=== PATIENT | female | born 1995 | race Caucasian/White ===

== ENCOUNTER 2023-03-18 08:15 | Emergency (ER) | payer MEDICAID, SELFPAY ==
--- NOTE | ~2023-03-18 | CT_ITS ---
EXAMINATION: CT ABDOMEN AND PELVIS WITHOUT CONTRAST CLINICAL INFORMATION: Right upper quadrant pain, nausea and vomiting. COMPARISON: None available. TECHNIQUE: Multidetector volumetric imaging was performed from the superior aspect of the liver through the pubic symphysis. Sagittal and coronal reformatted images were obtained on the technologist's workstation. This CT examination was performed using dose optimization techniques as appropriate, variously including the following: *Automated exposure control *Adjustment of mA and/or kV according to patient size (this includes techniques or standardized protocols for targeted exams where dose is matched to indication/reason for exam; i.e. extremities or head) *Use of iterative reconstruction technique Fleischner Society guidelines would not be applied to a patient of age < 35 years. DLP: 638 mGy-cm FINDINGS: LUNG BASES: No pulmonary consolidation or pleural effusion. Small 0.3 cm pleural-based nodule or lymph node of the lateral left lower lobe. No chest CT follow-up recommended. LIVER: The liver has normal size, shape, and attenuation. No evidence of liver mass. GALLBLADDER AND BILIARY TREE: Gallbladder is surgically absent. No dilated bile ducts. No CT imaging evidence of stones within the nondilated common duct. PANCREAS: Normal. No edema, pancreatic ductal dilatation or mass. SPLEEN: Normal. ADRENAL GLANDS: Normal. KIDNEYS AND URETERS: Kidneys are normal in size. No renal stones, hydronephrosis or perinephric edema. 1 cm cyst of the left kidney has a simple appearance on these noncontrast images. No renal imaging follow-up is recommended for a simple cyst. BLADDER: Normal. No calculi or wall thickening. BOWEL AND PERITONEUM: Stomach is unremarkable. No dilated loops of bowel. The appendix is normal. No focal bowel wall thickening or mesenteric fat stranding. No free fluid or pneumoperitoneum. ABDOMINAL WALL: Unremarkable. VASCULATURE: Unremarkable. LYMPH NODES: No pathologic sized lymph nodes in the abdomen or pelvis. No inguinal lymphadenopathy. PELVIC VISCERA: Uterus and adnexa are unremarkable. No pelvic free fluid. Multiple phleboliths are seen within the lower pelvis. MUSCULOSKELETAL: Unremarkable. CT/CT abdomen pelvis wo IV con IMPRESSION: * No acute imaging abnormalities in the abdomen or pelvis. * No evidence of renal stones or hydronephrosis. * Prior cholecystectomy. No dilated bile ducts. No evidence of choledocholithiasis.
[2023-03-18 08:32] VITALS: BP 114/67; PULSE 81; RESP 20; TEMP 36.6; O2SAT 99; BMI 32.9
[2023-03-18 08:48] LABS: MANUAL DIFF FLAG NO
[2023-03-18 08:50] LABS: Appearance Urine Clear; Basophils Percent Auto 0.3 % (0-2); Color Urine Yellow; Eosinophils Absolute Auto 0.2 X10*3/uL (0.0-0.4); Eosinophils Percent Auto 2.1 % (0-4); Glucose Urine UA Negative (Negative); Hematocrit 37.4 % (37.0-47.0); Hemoglobin 12.9 g/dl (12.0-16.0); Imm Gran Abs Auto 0.02 X10*3/uL (0.00-0.03); Imm Gran Pct Auto 0.2 % (0.0-0.4); Leukocyte Esterase Urine Negative (Negative); Lymphocytes Absolute Auto 2.4 X10*3/uL (1.2-4.9); Lymphocytes Percent Auto 26.2 % (20-40); Mean Corpuscular HGB Conc 34.5 g/dl (31.0-35.0); Mean Corpuscular Hemoglobin 29.3 pg (27.0-33.0); Mean Corpuscular Volume 84.8 fL (80.0-98.0); Mean Platelet Volume 9.7 fL (9.4-12.3); Monocytes Absolute Auto 0.5 X10*3/uL (0.1-1.2); Monocytes Percent Auto 5.5 % (2-11); Neutrophils Absolute Auto 6.1 x10*3/uL (2.0-8.3); Neutrophils Percent Auto 65.7 % (45-73); Nitrite Urine Negative (Negative); Platelet Count 306 X10*3/uL (160-400); Red Blood Count 4.41 X10*6/uL (4.20-5.50); Red Cell Distribution Width 12.3 % (11.0-16.0); Specific Gravity - Urine >= 1.030 (1.005-1.025); Urine Blood Negative (Negative); Urine Ketones Trace mg/dL (Negative); Urine Protein Negative (Neg-Trace); White Blood Count 9.3 X10*3/uL (4.8-10.8)
[2023-03-18 08:53] LABS: UPreg QC Valid YES; Urine Pregnancy NEGATIVE (NEGATIVE)
[2023-03-18 09:05] LABS: Anion Gap 11 (12-20); Blood Urea Nitrogen 11 mg/dL (9-16); Carbon Dioxide 25 mmol/L (22-29); Chloride 107 mmol/L (96-108); Creatinine Clr Calc Pharmacy 106.3; Estimated Glomerular Filt Rate > 60; Glucose Random 91 mg/dL (60-115); Potassium 3.8 mmol/L (3.3-5.1); Sodium 139 mmol/L (135-145)
--- NOTE | 2023-03-18 12:30 | ED.ABDPAIN ---
HPI - Abdominal Pain General Chief Complaint: Abdominal Pain Stated Complaint: Upper Abdominal Pain Time Seen by Provider: 03/18/23 12:30 Source: patient and family (mother) Mode of arrival: ambulatory Limitations: no limitations History of Present Illness HPI narrative: 28 yo female with PMHx significant for hyperthyroid presents to the ED today with a complaint of RUQ and epigastric abdominal pain + nonbloody vomiting x3 days. Pain has been constant since onset with radiation to the right flank. Reports history of similar symptoms, diagnosed with gastroenteritis. Has not seen a GI doctor. No hx of renal stones. Reports hx of cholecystectomy in 2019, no other abdominal surgeries. Denies etoh consumption or ilicit drug use including marijuana. Denies fall/ injury. Denies fever, chills, headache, CP, SOB, diarrhea, constipation, urinary frequency/ urgency, dysuria, hematuria, vaginal discharge, hematochezia, or melena. Related Data Previous Rx's Medication Instructions Recorded ketorolac 10 mg tablet 10 mg PO Q8H 5 days #15 tabs 03/18/23 ondansetron 4 mg disintegrating 4 mg PO DAILY PRN nausea and 03/18/23 tablet vomiting 5 days #10 tabs Allergies Allergy/AdvReac Type Severity Reaction Status Date / Time No Known Allergies Allergy Verified 03/18/23 08:31 Review of Systems Review of Systems Constitutional: No fever, No chills, No fatigue ENT/Mouth: No ear pain, No hearing loss,? No nasal congestion Eyes: No eye pain, No swelling, No redness, No vision changes, No foreign body, No discharge Cardio: No chest pain, No palpitations, No dyspnea on exertion, No orthopnea, No edema Respiratory: No SOB, No cough, No sputum, No wheezing, No dyspnea, No hemoptysis, No smoke exposure GI: + nausea, + vomiting, No hematemesis, + abdominal pain, No diarrhea, No constipation, No hematochezia, No melena : No irregular bleeding, No dysuria, No frequency, No urgency, No hesitancy, No hematuria, No flank pain MSK: No back pain, No neck pain, No joint pain, No myalgias Skin: No skin lesions, No rashes Neuro: No weakness, No numbness, No paresthesias, No LOC, No dizziness, No headache Yes all other systems are reviewed and are negative PMFSH Past Medical History Attestation statement: The following information was validated with the patient. Source: old records reviewed and nursing notes reviewed Social History Social History Advance Directives: No Advance Directives Information Provided: Yes Physical Exam ED Vital Signs: Vital Signs - 24 hr 03/18/23 08:32 03/18/23 14:52 03/18/23 14:56 Temperature 98 F 98.0 F Pulse Rate 81 67 74 Respiratory Rate 20 13 18 Blood Pressure 114/67 103/62 99/57 L Pulse Oximetry 99 97 96 Oxygen Delivery Method Room Air Room Air Room Air BMI result Body Mass Index 32.9 Vital signs stable. General: Nontoxic appearing. NAD Skin: Warm and dry. No rashes or lesions. Head: Normocephalic, atraumatic. EENT: Hearing intact. Conjunctiva clear. Sclera is anicteric. PERRLA. EOM intact. Moist mucous membranes. Good dentition. Controlling secretions. Neck: Supple without LAD. Normal ROM. Trachea midline.? Cardiac: Chest wall symmetric. Regular rate and rhythm. S1 and S1 appreciated. No MRG. No JVD. Lungs: CTA bilaterally. No rales, rhonchi, or wheezes. Normal respiratory effort without accessory muscle use. Abdomen: Healed scar noted to RUQ consistent with previous laparoscopic cholecystectomy. Soft, nondistended, RUQ and epigastric region TTP without rebound tenderness or guarding. Normoactive BS x4. No masses, hepatomegaly, or splenomegaly.? Ext: Upper and lower extremities atraumatic. Full ROM intact. Strength 5/5 throughout. Capillary refill <2 seconds in all extremities. Pulses 2+ equal and bilateral. No edema, cyanosis, or clubbing. Neuro: Alert and oriented x3. Normal speech. CN 2-12 grossly intact. Sensation intact to light touch.? NV intact distally. Psych: Appropriate mood and affect. Responds appropriately to questions.? Course Course Course Narrative: 1329-- CBC without leukocytosis or anemia. BMP without acute electrolyte abnormalities requiring intervention. Liver enzymes WNL. Lipase WNL. UA without infection or blood. Urine preg negative. Awaiting CT abd/pelvis. CT abd/pelvis > unremarkable On re-evaluation, patient's nausea and abdominal pain have improved. Lying comfortably in bed, sleeping. Discussed lab and imaging results with patient. Used shared decision making to discuss patient's disposition. Given patient is stable, has had improvement of pain with medications, and has unremarkable work up, will plan GI follow up outpatient. Will send patient home with anti-nausea medication and pain medication received in ED. Discussed worrisome signs and symptoms and when to return to the ED. Patient agreeable with plan. All questions answered. Stable for discharge. Medical Decision Making Medical Decision Making [facility] Narrative: 1250-- 28 yo female with RUQ/ epigastric pain & N/V x3 days PE- RRR. Lungs CTA. Abdomen soft, nondistended, TTP of the RUQ and epigastric region. +BS x4. No rebound or guarding. No CVAT. Concern for pancreatitis vs appendicitis vs gastroenteritis vs cyclic vomiting vs PUD vs GERD. Low suspicion for UTI vs pyelonephritis vs nephrolithiasis. Unlikely SBO, acute abdomen, ischemic bowel, IUP, ectopic, ovarian torsion or cyst. Presentation not consistent with ASC or dissection. Differential Diagnosis Differential Diagnoses: The differential diagnosis associated with the presentation includes Concern for pancreatitis vs appendicitis vs gastroenteritis vs cyclic vomiting vs PUD vs GERD. Low suspicion for UTI vs pyelonephritis vs nephrolithiasis. Unlikely SBO, acute abdomen, ischemic bowel, IUP, ectopic, ovarian torsion or cyst. Presentation not consistent with ASC or dissection. Admission/Observation Consideration of admission/observation: Escalation of care including admission/observation considered Unlikely. Lab Data [facility] Lab Attestation statement: I reviewed the patient's lab results. Please refer to course narrative above. 03/18/23 08:42 03/18/23 08:42 Labs: Lab Results 03/18/23 03/18/23 Range/Units 08:42 12:56 WBC 9.3 (4.8-10.8) X10*3/uL RBC 4.41 (4.20-5.50) X10*6/uL Hgb 12.9 (12.0-16.0) g/dl Hct 37.4 (37.0-47.0) % MCV 84.8 (80.0-98.0) fL MCH 29.3 (27.0-33.0) pg MCHC 34.5 (31.0-35.0) g/dl RDW 12.3 (11.0-16.0) % Plt Count 306 (160-400) X10*3/uL MPV 9.7 (9.4-12.3) fL Immature Gran % (Auto) 0.2 (0.0-0.4) % Neut % (Auto) 65.7 (45-73) % Lymph % (Auto) 26.2 (20-40) % [place] % (Auto) 5.5 (2-11) % Eos % (Auto) 2.1 (0-4) % Baso % (Auto) 0.3 (0-2) % Lymph # (Auto) 2.4 (1.2-4.9) X10*3/uL [place] # (Auto) 0.5 (0.1-1.2) X10*3/uL Eos # (Auto) 0.2 (0.0-0.4) X10*3/uL Baso # (Auto) 0.0 (0.0-0.2) X10*3/uL Abs Immat Gran (auto) 0.02 (0.00-0.03) X10*3/uL Absolute Neuts (auto) 6.1 (2.0-8.3) x10*3/uL Absolute Nucleated RBC 0.000 (0.0-0.012) X10*3/uL Nucleated RBC % (auto) 0.0 (0.0-0.2) /100WBC Sodium 139 (135-145) mmol/L Potassium 3.8 (3.3-5.1) mmol/L Chloride 107 (96-108) mmol/L Carbon Dioxide 25 (22-29) mmol/L Anion Gap 11 L (12-20) BUN 11 (9-16) mg/dL Creatinine 0.78 (0.5-1.4) mg/dL Estim Creat Clear Calc 106.3 Estimated GFR > 60 Random Glucose 91 (60-115) mg/dL Calcium 9.0 (8.4-10.2) mg/dL Total Bilirubin 0.5 (0.0-1.0) mg/dL Direct Bilirubin 0.2 (0.0-0.5) mg/dL AST 17 (5-31) U/L ALT 13 (0-31) U/L Alkaline Phosphatase 81 (39-117) U/L Total Protein 7.3 (6.5-8.0) g/dL Albumin 4.2 (3.5-5.0) g/dL Lipase 9 (8-78) U/L Urine Color Yellow Urine Appearance Clear Urine pH 6.0 (5.0-9.0) Ur Specific [place] >= 1.030 H (1.005-1.025) Urine Protein Negative (Neg-Trace) mg/dL Urine Glucose (UA) Negative (Negative) mg/dL Urine Ketones Trace (Negative) mg/dL Urine Blood Negative (Negative) Urine Nitrite Negative (Negative) Ur Leukocyte Esterase Negative (Negative) Urine Test NEGATIVE (NEGATIVE) Independent Interpretation I performed an independent interpretation of an: CT Scan Interpretation: CT abd/pelvis without acute intraabdominal pathology, agree with radiologist's interpretation. Radiology Impression Discussion of test interpretation with radiology: I have reviewed the radiologist's reading. Radiologist Impression: CT abdomen pelvis wo IV con IMPRESSION: * No acute imaging abnormalities in the abdomen or pelvis. * No evidence of renal stones or hydronephrosis. * Prior cholecystectomy. No dilated bile ducts. No evidence of choledocholithiasis. Independent Historian Clinical information obtained from an independent historian. History obtained from or confirmed by: Parent Prescription Management I considered prescription management with: Pain Medication and Other (antiemetic) Chronic Conditions Patient?s care impacted by: Other (gastroenteritis) Core Measures AMI core measures followed: Yes Measure exclusions: not indicated Medications Administered Discontinued Medications Generic Name Dose Route Start Last Admin Trade Name Freq PRN Reason Stop Dose Admin Ketorolac Tromethamine 15 mg 03/18/23 12:46 03/18/23 13:53 Ketorolac Tromethamine 15 Mg/Ml Vial IM 03/18/23 12:47 15 mg ONCE ONE Administration Discharge Plan Discharge Clinical Impression: Gastroenteritis, Abdominal pain Patient Disposition: Home, Self-Care Instructions: Gastroenteritis (ED) Additional Instructions: Your lab workup today was reassuring.? Your urine test was negative for infection and .? The imaging of your abdomen was unremarkable. Your symptoms are most consistent with a viral stomach bug, also known as gastroenteritis.? The treatment for this is supportive care. Symptoms usually resolve on their own in 48-72 hours.? The recommendation is rest and lots of oral hydration.? Stick to a bland diet like soup and toast while you are not feeling well.? Zofran is an anti-nausea medication. This has been sent to your pharmacy for you to take as needed for nausea.? You can also try over the counter Pepto Bismol or Imodium as needed for upset stomach and diarrhea.? Follow up with your primary care provider as needed. If you develop new or worsening symptoms call 911 or come back to the ER for further evaluation. Frazier an?lisis de laboratorio de hoy fue tranquilizador. Frazier prueba de orina fue negativa para infecci?n y embarazo. La imagen de frazier abdomen no fue nada especial. Marta s?ntomas son m?s consistentes con un virus estomacal viral, tambi?n conocido edgar gastroenteritis. El tratamiento para esto es la atenci?n de apoyo. Los s?ntomas suelen desaparecer por s? solos en 48 a 72 horas. La recomendaci?n es reposo y melba hidrataci?n bucal. Siga leela dieta blanda edgar sopa y tostadas mientras no se sienta rocío. Zofran es un medicamento contra las n?useas. [place] se envi? a frazier farmacia para que lo tome seg?n sea necesario para las n?useas. Tambi?n puede probar Pepto Bismol o Imodium sin receta seg?n sea necesario para el malestar estomacal y la diarrea. Katina un seguimiento con frazier proveedor de atenci?n primaria seg?n sea necesario. Si desarrolla s?ntomas nuevos o que empeoran, llame al 911 o regrese a la blas de emergencias para leela evaluaci?n adicional. Prescriptions: New ketorolac 10 mg tablet 10 mg PO Q8H 5 Days Qty: 15 0RF Rx Instructions: Tolerated dose in ED. ondansetron 4 mg tablet,disintegrating 4 mg PO DAILY PRN (Reason: nausea and vomiting) 5 Days Qty: 10 0RF [place]: [facility] [place] [facility] [place] Group] [facility] [Provider Group] Stand Alone Forms: Work/School Release Interventions: ED Discharge Assessment Last Done: 03/18/23 15:06 Discharge Date/Time: 03/18/23 15:08 Print Language: Nepalese
[2023-03-18 13:22] LABS: Alanine Aminotransferase 13 U/L (0-31); Albumin Level 4.2 g/dL (3.5-5.0); Alkaline Phosphatase 81 U/L (39-117); Aspartate Amino Transferase 17 U/L (5-31); Bilirubin Direct 0.2 mg/dL (0.0-0.5); Bilirubin Total 0.5 mg/dL (0.0-1.0); Lipase 9 U/L (8-78); Total Protein 7.3 g/dL (6.5-8.0)
[2023-03-18] MEDS: Ketorolac Tromethamine 15 MG/ML VIAL IM (13:53)
[2023-03-18 14:52] VITALS: BP 103/62; PULSE 67; RESP 13; O2SAT 97
[2023-03-18 14:56] VITALS: BP 99/57; PULSE 74; RESP 18; TEMP 36.7; O2SAT 96
== END 2023-03-18 15:08 | disposition home or self-care (01) ==
PROVIDERS: Physician Assistant Medical; Emergency Provider Emergency Medicine
DX: K52.9 Noninfective gastroenteritis and colitis, unspecified (principal); R10.10 Upper abdominal pain, unspecified; Z90.49 Acquired absence of other specified parts of digestive tract
CPT/HCPCS: 36415; 74176; 80048; 80076; 81003; 81025; 83690; 85025; 96372; 99283; 99284; J1885

== ENCOUNTER 2023-04-26 18:13 | Inpatient (IN) | payer MEDICAID, SELFPAY ==
--- NOTE | ~2023-04-26 | MR_ITS ---
EXAMINATION: MR ABDOMEN WITHOUT CONTRAST CLINICAL INFORMATION: Right upper quadrant pain and elevated LFTs. COMPARISON: Prior CTs of the abdomen from 04/27/2023, 04/26/2023 and 03/18/2023. TECHNIQUE: MR abdomen is performed without gadolinium contrast. FINDINGS: LUNG BASES: The visualized lung bases are unremarkable. LIVER, GALLBLADDER, AND BILIARY TREE: The liver is normal in size, smooth in contour, and normal in signal. No focal hepatic lesion. Moderate intrahepatic biliary ductal dilatation and dilatation of the common bile duct to 1.3 cm upstream from a 6 mm stone in the mid common bile duct, at the level of the superior aspect of the pancreatic head. Gallbladder surgically absent. PANCREAS: Unremarkable. SPLEEN: Unremarkable. ADRENAL GLANDS: Unremarkable. KIDNEYS AND URETERS: The kidneys are normal in size and shape. No hydronephrosis. There is a 1.1 cm simple cyst in the posterior interpolar cortex of the left kidney. No perinephric stranding. GASTROINTESTINAL TRACT: No bowel obstruction. No ascites or fluid collection. ABDOMINAL WALL: No significant hernia is appreciated. LYMPH NODES: No lymphadenopathy. VASCULAR: Unremarkable. OSSEOUS STRUCTURES: Marrow signal normal. MR/MR MRCP IMPRESSION: * Choledocholithiasis with a 6 mm stone in the mid common bile duct, at the level of the superior aspect of the pancreatic head. There is dilatation of the common bile duct 1.3 cm with moderate to severe intrahepatic biliary duct dilatation. Recommend GI consult for potential ERCP. * Status post cholecystectomy.
--- NOTE | ~2023-04-26 | US_ITS ---
EXAMINATION: US ABDOMEN LIMITED CLINICAL INFORMATION: Right upper quadrant pain and jaundice. COMPARISON: CT abdomen and pelvis dated 03/18/2023. TECHNIQUE: Real-time imaging of the right upper quadrant abdominal viscera. FINDINGS: PANCREAS: Largely obscured by overlapping bowel gas. LIVER: The liver is normal in size. The liver contour is normal. Parenchymal echogenicity is normal. No focal hepatic lesion. There is mild intrahepatic biliary duct dilatation seen. GALLBLADDER: Surgically absent. COMMON BILE DUCT: Normal in caliber post-cholecystectomy, measuring 1.1 cm in diameter. RIGHT KIDNEY: Normal. No hydronephrosis. No renal calculi or focal parenchymal lesions. The kidney measures 10.0 cm in maximum dimension. FREE FLUID: None. US/US abdomen limited IMPRESSION: 1. There is mild intrahepatic biliary ductal dilatation. No definite extrahepatic biliary ductal dilatation is seen. The gallbladder is surgically absent. If of continued clinical concern, this can be further evaluated with abdominal MRI/MRCP or a nuclear HIDA scan. 2. Technically limited ultrasound examination of the pancreas.
--- NOTE | ~2023-04-26 | XR_ITS ---
EXAMINATION: XR ABDOMEN KUB CLINICAL INDICATION: Evaluate pancreatic stent COMPARISON: Image obtained at conclusion of endoscopic procedure 04/28/23 TECHNIQUE: AP view of the abdomen. FINDINGS: There is a metallic density projecting in the right upper quadrant. There are surgical clips. There is a partially opaque stent in the right midabdomen extending from the upper endplate of L1 to the mid L2 level. This appears similar in position to the previous study. Gaseous distention with gas in the colon to the level of the rectum. There are phleboliths. XR/XR KUB IMPRESSION: There is a pancreatic stent in the right midabdomen which appears similar in location to the previous study.
--- NOTE | ~2023-04-26 | CT_ITS ---
EXAMINATION: CT ABDOMEN AND PELVIS WITHOUT CONTRAST CLINICAL INFORMATION: Right upper quadrant pain with elevated bilirubin COMPARISON: Ultrasound abdomen earlier today and CT abdomen pelvis 03/28/2023 TECHNIQUE: Multidetector volumetric imaging was performed from the superior aspect of the liver through the pubic symphysis. Sagittal and coronal reformatted images were obtained on the technologist's workstation. This CT examination was performed using dose optimization techniques as appropriate, variously including the following: *Automated exposure control *Adjustment of mA and/or kV according to patient size (this includes techniques or standardized protocols for targeted exams where dose is matched to indication/reason for exam; i.e. extremities or head) *Use of iterative reconstruction technique DLP: 667 mGy-cm FINDINGS: LUNG BASES: The visualized lung bases are unremarkable. LIVER, GALLBLADDER, AND BILIARY TREE: Examination of the liver is limited by lack of IV contrast. The liver is normal in size, shape, and attenuation. No focal hepatic lesion or biliary ductal dilatation is present. Status post cholecystectomy with clips in the gallbladder fossa. PANCREAS: Unremarkable. SPLEEN: Unremarkable. ADRENAL GLANDS: Unremarkable. KIDNEYS AND URETERS: The kidneys are normal in size, shape, and attenuation. No hydronephrosis, hydroureter, or calculi seen. No perinephric stranding. BLADDER: Unremarkable. GASTROINTESTINAL TRACT: The small and large bowel are unremarkable. The appendix is unremarkable. ABDOMINAL WALL: No significant hernia is appreciated. LYMPH NODES: Normal. VASCULAR: Unremarkable. PELVIC VISCERA: Unremarkable. OSSEOUS STRUCTURES: Unremarkable. CT/CT abdomen pelvis wo IV con IMPRESSION: No significant abnormality. Status post cholecystectomy. Fleischner guidelines were followed.
--- NOTE | ~2023-04-26 | CT_ITS ---
EXAMINATION: CT ABDOMEN AND PELVIS WITH CONTRAST CLINICAL INFORMATION: Elevated bilirubin, right upper quadrant pain COMPARISON: 04/26/2023 TECHNIQUE: Multidetector volumetric images were obtained from the superior aspect of the liver through the pubic symphysis following administration 85 mL of Omnipaque 350 intravenous contrast. Sagittal and coronal reformatted images were obtained on the technologist's workstation. Oral contrast: No This CT examination was performed using dose optimization techniques as appropriate, variously including the following: *Automated exposure control *Adjustment of mA and/or kV according to patient size (this includes techniques or standardized protocols for targeted exams where dose is matched to indication/reason for exam; i.e. extremities or head) *Use of iterative reconstruction technique DLP: 680 mGy-cm FINDINGS: LUNG BASES: The visualized lung bases are unremarkable. LIVER, GALLBLADDER, AND BILIARY TREE: The liver is normal in size, shape, and attenuation. No focal hepatic lesion identified. Status post cholecystectomy. There is mild to moderate intrahepatic biliary ductal dilatation. PANCREAS: Unremarkable. SPLEEN: Unremarkable. ADRENAL GLANDS: Unremarkable. KIDNEYS AND URETERS: Bilateral nephrograms are symmetric. No hydronephrosis or obstructing calculus identified. Small left renal cyst; no follow-up recommended. BLADDER: Unremarkable. GASTROINTESTINAL TRACT: Assessment for wall thickening in some segments of the colon is limited due to luminal collapse, though no significant pericolonic stranding is seen to strongly suggest a colitis. No evidence of bowel obstruction. The appendix is unremarkable. No free fluid or free air is seen. ABDOMINAL WALL: No significant hernia is appreciated. LYMPH NODES: Normal. VASCULAR: Unremarkable. PELVIC VISCERA: Unremarkable. OSSEOUS STRUCTURES: Unremarkable. CT/CT abdomen pelvis w IV con IMPRESSION: Status post cholecystectomy. Mild to moderate intrahepatic biliary ductal dilatation, which could be secondary to postcholecystectomy state though obstruction in the common bile duct could also result in this appearance. This could be further assessed with MRI/MRCP.
--- NOTE | ~2023-04-26 | FL_ITS ---
EXAMINATION: XR FLUOROSCOPY WITH IMAGES CLINICAL INFORMATION: ERCP COMPARISON: Previous MR MRCP, CT of the abdomen and was found of the abdomen from earlier TECHNIQUE: Fluoroscopy Supervised By: Dr. Aleksander Betts. Fluoroscopy Time: 220.9 seconds. Cumulative Dose: 61.93 mGy. DAP: Not available on this machine. Images: 12. FINDINGS: Initial images demonstrate wires in the common bile duct and main pancreatic duct There is intra and extrahepatic biliary duct dilatation. There is a filling defect in the common bile duct suggestive of a stone. There is no contrast opacification of the common bile duct distal to the stone. Later images demonstrate stent main pancreatic duct. The gallbladder has been removed. FL/FL guidance in OR IMPRESSION: Fluoroscopy guidance for ERCP.
[2023-04-26 18:27] VITALS: BP 127/70; PULSE 96; RESP 20; TEMP 36.9; O2SAT 100; BMI 32.9
--- NOTE | 2023-04-26 18:32 | ED.ABDPAIN ---
HPI - Abdominal Pain General Chief Complaint: Abdominal Pain Stated Complaint: Abdominal pain Time Seen by Provider: 04/26/23 22:15 Source: patient and RN notes reviewed Mode of arrival: ambulatory Limitations: no limitations and language barrier History of Present Illness HPI narrative: This is a 28-year-old italian speaking female, with a past medical history of thyroid disease, presenting to the emergency department for evaluation of right upper abdominal pain x3 days. Patient states that over the last 3 days she has had constant right upper abdominal pain that radiates into her back. She admits to having nausea and vomiting. She is unable to eat or drink secondary to the pain and persistent nausea and vomiting. She had a cholecystectomy in 2020, no other surgical history. Denies fevers or chills. Denies taking any medications at home to treat her pain. Denies history of similar symptoms. MD elicited complaint: abdominal pain Pertinent past history: none Onset (ago): day(s) Pain Consistency: constant Location: epigastric and RUQ Pain scale (0-10): 10 Quality: stabbing and aching Radiation: RUQ, epigastric, R flank and back Migration to: no migration Exacerbating factors: nothing Relieving factors: nothing Associated symptoms: nausea and vomiting Related Data Previous Rx's Medication Instructions Recorded ketorolac 10 mg tablet 10 mg PO Q8H 5 days #15 tabs 03/18/23 ondansetron 4 mg disintegrating 4 mg PO DAILY PRN nausea and 03/18/23 tablet vomiting 5 days #10 tabs Allergies Allergy/AdvReac Type Severity Reaction Status Date / Time No Known Allergies Allergy Verified 03/18/23 08:31 Review of Systems Review of Systems Yes all other systems are reviewed and are negative Constitutional: Reports as per [facility] Social History Social History Smoked in Last 30 Days: No Use of substances other than those prescribed or required for medical reasons: No Advance Directives: No Advance Directives Information Provided: No Physical Exam ED Vital Signs: Vital Signs - 24 hr 04/26/23 18:27 04/26/23 21:16 04/27/23 00:54 Temperature 98.5 F 98.2 F Pulse Rate 96 95 72 Respiratory Rate 20 20 16 Blood Pressure 127/70 119/64 122/76 Pulse Oximetry 100 98 99 Oxygen Delivery Method Room Air Room Air Room Air BMI result Body Mass Index 32.9 Const General: cooperative and other (Kneeling at bedside, appears to be uncomfortable secondary to pain.) Orientation/consciousness: patient oriented x3 Limitations: no limitations HENMT Head: Yes normal to inspection, Yes normocephalic and Yes atraumatic Ears: hearing grossly normal bilaterally General nose exam: Normal external nose present Face and sinus: Yes normal facial exam Mouth: Normal oral and palatal mucosa present, oropharynx normal and moist mucous membranes Throat: Yes posterior oropharynx normal Eyes Other: Scleral icterus noted General: appearance normal, both eyes and all related structures Eyelids: Yes eyelids normal Conjunctivae: conjunctivae normal Sclerae: sclerae normal Pupils: Equal, round and reactive pupils present EOM: EOMs intact bilaterally Neck Neck: Yes normal visual inspection, Yes full ROM and Yes no lymphadenopathy Lymphatic: no lymphadenopathy noted Chest Chest palpation & inspection: normal inspection of the chest Resp Effort & Inspection: normal respiratory effort and able to speak in complete sentences Auscultation: clear to auscultation bilaterally, no crackles, no rales, no rhonchi and no wheezes Cardio Rate: regular rate Rhythm: regular rhythm Heart sounds: S1 normal heart sound present and S2 normal heart sound present GI Other: Abdomen is soft. Exquisite tenderness to the right upper quadrant. Inspection: Yes normal to inspection Skin Other: mild jaundice noted. Trauma: no lacerations or abrasions Wounds: no wounds Neuro General: patient oriented x3 and moves all extremities Cranial nerves: Yes Equal, round and reactive pupils present Extrem General: Yes normal to inspection Right upper extremity: normal to inspection Left upper extremity: normal to inspection Right lower extremity: normal to inspection Left lower extremity: normal to inspection Course Course Course Narrative: This is an RME: Additional HPI, ROS, PE not included below will be deferred to primary provider. 28 year old female presents w/ epigastric pain w/ radiation to back and slight ruq pain. Ongoing X 3 days. Social drinker. Unlikely per patient. Hx of gastritis Plan- labs, urine Reevaluation(s) Reevaluation #1: CT abdomen and pelvis was obtained revealing no acute abnormalities however examination was performed without IV contrast. Given concern for obstructive jaundice/hyperbilirubinemia, IV contrast is warranted. Patient still uncomfortable, and a 10 pain. Patient medicated with Dilaudid [address] abdomen with IV contrast ordered. Time: 23:55 Reevaluation #2: CT abd revealing Mild to moderate intrahepatic biliary ductal dilatation, which could be secondary to postcholecystectomy state though obstruction in the common bile duct could also result in this appearance. This could be further assessed with MRI/MRCP. Spoke to Dr. Chase, GI specialist who recommends ERCP as soon as possible and to make NPO. Discussed case with Dr. Fuchs who accepts transfer of care Time: 01:32 Medical Decision Making Medical Decision Making [facility] Narrative: This is a 28-year-old female presenting to the emergency department with complaints of epigastric and right upper quadrant pain for the last 3 days. Patient with scleral icterus, skin with skin jaundice noted. Concerning for hyperbilirubemia. Upon arrival to the emergency room, vital signs within normal limits. Patient appears extremely uncomfortable complaining of right upper quadrant pain, patient kneeling at bedside due to pain. Labs were ordered out in triage, significant for total bili 5.4, elevated transaminases with ALT 662 AST 255. Alk phos 365. Concerning for obstructive jaundice. Hepatitis panel ordered. UA appears to be contaminated. Plan: Labs, UA, EKG, CT scan, ultrasound Differential Diagnosis Differential Diagnoses: The differential diagnosis associated with the presentation includes Obstructive jaundice, hyperbilirubinemia, cholangitis Admission/Observation Consideration of admission/observation: Escalation of care including admission/observation considered Patient needs to be admitted due to elevated bilirubin at 5.4, and liver transaminases and alk-phos. Consult Healthcare Provider Management of the patient was discussed with: Hospitalist and [employer] Picture Equipment Machinist Dr. Jef Chase Lab Data [facility] Lab Attestation statement: I reviewed the patient's lab results. See [facility] 04/26/23 19:46 04/26/23 19:46 Labs: Lab Results 04/26/23 04/26/23 Range/Units 19:46 21:19 WBC 7.6 (4.8-10.8) X10*3/uL RBC 4.65 (4.20-5.50) X10*6/uL Hgb 13.5 (12.0-16.0) g/dl Hct 40.2 (37.0-47.0) % MCV 86.5 (80.0-98.0) fL MCH 29.0 (27.0-33.0) pg MCHC 33.6 (31.0-35.0) g/dl RDW 13.0 (11.0-16.0) % Plt Count 332 (160-400) X10*3/uL MPV 9.5 (9.4-12.3) fL Immature Gran % (Auto) 0.4 (0.0-0.4) % Neut % (Auto) 71.6 (45-73) % Lymph % (Auto) 20.8 (20-40) % [place] % (Auto) 5.3 (2-11) % Eos % (Auto) 1.5 (0-4) % Baso % (Auto) 0.4 (0-2) % Lymph # (Auto) 1.6 (1.2-4.9) X10*3/uL [place] # (Auto) 0.4 (0.1-1.2) X10*3/uL Eos # (Auto) 0.1 (0.0-0.4) X10*3/uL Baso # (Auto) 0.0 (0.0-0.2) X10*3/uL Abs Immat Gran (auto) 0.03 (0.00-0.03) X10*3/uL Absolute Neuts (auto) 5.4 (2.0-8.3) x10*3/uL Absolute Nucleated RBC 0.000 (0.0-0.012) X10*3/uL Nucleated RBC % (auto) 0.0 (0.0-0.2) /100WBC Sodium 139 (135-145) mmol/L Potassium 4.3 (3.3-5.1) mmol/L Chloride 105 (96-108) mmol/L Carbon Dioxide 25 (22-29) mmol/L Anion Gap 13 (12-20) BUN 15 (9-16) mg/dL Creatinine 0.76 (0.5-1.4) mg/dL Estim Creat Clear Calc 109.1 Estimated GFR > 60 Random Glucose 104 (60-115) mg/dL Calcium 9.8 D (8.4-10.2) mg/dL Magnesium 2.3 (1.6-2.6) mg/dL Total Bilirubin 5.4 H (0.0-1.0) mg/dL AST 255 H (5-31) U/L ALT 662 H (0-31) U/L Alkaline Phosphatase 365 H (39-117) U/L Troponin I High Sens < 2.7 (<3.5-17.0) ng/L Total Protein 7.8 (6.5-8.0) g/dL Albumin 4.3 (3.5-5.0) g/dL Lipase 11 (8-78) U/L Beta HCG, Quant < 2 mIU/mL Urine Color Dark Yellow Urine Appearance Clear Urine pH 5.5 (5.0-9.0) Ur Specific [place] 1.025 (1.005-1.025) Urine Protein Negative (Neg-Trace) mg/dL Urine Glucose (UA) Negative (Negative) mg/dL Urine Ketones Trace (Negative) mg/dL Urine Blood Negative (Negative) Urine Nitrite Negative (Negative) Ur Leukocyte Esterase Trace H (Negative) Urine RBC 3-5 H (0-2) /HPF Urine WBC 0-5 (0-5) /HPF Ur Squamous Epith Cells 6-10 (0-2) /HPF Urine Bacteria Trace (None Seen) Hyaline Casts 0-2 (0-2) /LPF Radiology Impression Discussion of test interpretation with radiology: I have reviewed the radiologist's reading. Radiologist Impression: EXAMINATION: CT ABDOMEN AND PELVIS WITH CONTRAST CLINICAL INFORMATION: Elevated bilirubin, right upper quadrant pain COMPARISON: 04/26/2023 TECHNIQUE: Multidetector volumetric images were obtained from the superior aspect of the liver through the pubic symphysis following administration 85 mL of Omnipaque 350 intravenous contrast. Sagittal and coronal reformatted images were obtained on the technologist's workstation. Oral contrast: No This CT examination was performed using dose optimization techniques as appropriate, variously including the following: *Automated exposure control *Adjustment of mA and/or kV according to patient size (this includes techniques or standardized protocols for targeted exams where dose is matched to indication/reason for exam; i.e. extremities or head) *Use of iterative reconstruction technique DLP: 680 mGy-cm FINDINGS: LUNG BASES: The visualized lung bases are unremarkable. LIVER, GALLBLADDER, AND BILIARY TREE: The liver is normal in size, shape, and attenuation. No focal hepatic lesion identified. Status post cholecystectomy. There is mild to moderate intrahepatic biliary ductal dilatation. PANCREAS: Unremarkable. SPLEEN: Unremarkable. ADRENAL GLANDS: Unremarkable. KIDNEYS AND URETERS: Bilateral nephrograms are symmetric. No hydronephrosis or obstructing calculus identified. Small left renal cyst; no follow-up recommended. BLADDER: Unremarkable. GASTROINTESTINAL TRACT: Assessment for wall thickening in some segments of the colon is limited due to luminal collapse, though no significant pericolonic stranding is seen to strongly suggest a colitis. No evidence of bowel obstruction. The appendix is unremarkable. No free fluid or free air is seen. ABDOMINAL WALL: No significant hernia is appreciated. LYMPH NODES: Normal. VASCULAR: Unremarkable. PELVIC VISCERA: Unremarkable. OSSEOUS STRUCTURES: Unremarkable. CT/CT abdomen pelvis w IV con IMPRESSION: Status post cholecystectomy. Mild to moderate intrahepatic biliary ductal dilatation, which could be secondary to postcholecystectomy state though obstruction in the common bile duct could also result in this appearance. This could be further assessed with MRI/MRCP. Dictated By: Eric Tirado MD EXAMINATION: US ABDOMEN LIMITED CLINICAL INFORMATION: Right upper quadrant pain and jaundice. COMPARISON: CT abdomen and pelvis dated 03/18/2023. TECHNIQUE: Real-time imaging of the right upper quadrant abdominal viscera. FINDINGS: PANCREAS: Largely obscured by overlapping bowel gas. LIVER: The liver is normal in size. The liver contour is normal. Parenchymal echogenicity is normal. No focal hepatic lesion. There is mild intrahepatic biliary duct dilatation seen. GALLBLADDER: Surgically absent. COMMON BILE DUCT: Normal in caliber post-cholecystectomy, measuring 1.1 cm in diameter. RIGHT KIDNEY: Normal. No hydronephrosis. No renal calculi or focal parenchymal lesions. The kidney measures 10.0 cm in maximum dimension. FREE FLUID: None. US/US abdomen limited IMPRESSION: 1. There is mild intrahepatic biliary ductal dilatation. No definite extrahepatic biliary ductal dilatation is seen. The gallbladder is surgically absent. If of continued clinical concern, this can be further evaluated with abdominal MRI/MRCP or a nuclear HIDA scan. 2. Technically limited ultrasound examination of the pancreas. Dictated By: Corbin Meier MD Independent Historian Clinical information obtained from an independent historian. History obtained from or confirmed by: Parent Prescription Management I considered prescription management with: Pain Medication Medications Administered Discontinued Medications Generic Name Dose Route Start Last Admin Trade Name Freq PRN Reason Stop Dose Admin Hydromorphone HCl 2 mg 04/26/23 23:40 04/27/23 00:39 Hydromorphone Hcl 2 Mg/Ml Vial IVPUSH 04/26/23 23:41 2 mg ONCE ONE Administration Protocol Sodium Chloride 1,000 mls @ 999 mls/hr 04/26/23 22:49 04/27/23 00:28 Ns IV 04/26/23 23:49 Infused .Q1H1M ONE Infusion Iohexol 85 ml 04/27/23 00:24 04/27/23 00:24 Iohexol 350 Mg/Ml 100 Ml Infus..Btl IV 04/27/23 00:25 85 ml ONCE ONE Administration Morphine Sulfate 4 mg 04/26/23 22:48 04/26/23 22:56 Morphine Sulfate 4 Mg/Ml Cartridge IVPUSH 04/26/23 22:49 4 mg ONCE ONE Administration Protocol Discharge Plan Discharge Clinical Impression: Hyperbilirubinemia, Intrahepatic bile duct dilation, Jaundice Patient Disposition: Admitted As Inpatient Prescriptions: No Action ketorolac 10 mg tablet 10 mg PO Q8H 5 Days Qty: 15 0RF Rx Instructions: Tolerated dose in ED. ondansetron 4 mg tablet,disintegrating 4 mg PO DAILY PRN (Reason: nausea and vomiting) 5 Days Qty: 10 0RF
--- NOTE | 2023-04-26 18:34 | ECG_ITS ---
Test Reason : ABDOMINAL PAIN Blood Pressure : / mmHG Vent. Rate : 081 BPM Atrial Rate : 081 BPM P-R Int : 168 ms QRS Dur : 070 ms QT Int : 350 ms P-R-T Axes : 050 056 058 degrees QTc Int : 406 ms Normal sinus rhythm with sinus arrhythmia Normal ECG No previous ECGs available Referred By: Giovanny Coulter Electronically Signed By:KOREY SIMMONS MD
[2023-04-26 19:53] LABS: Basophils Percent Auto 0.4 % (0-2); Eosinophils Absolute Auto 0.1 X10*3/uL (0.0-0.4); Eosinophils Percent Auto 1.5 % (0-4); Hematocrit 40.2 % (37.0-47.0); Hemoglobin 13.5 g/dl (12.0-16.0); Imm Gran Abs Auto 0.03 X10*3/uL (0.00-0.03); Imm Gran Pct Auto 0.4 % (0.0-0.4); Lymphocytes Absolute Auto 1.6 X10*3/uL (1.2-4.9); Lymphocytes Percent Auto 20.8 % (20-40); MANUAL DIFF FLAG NO; Mean Corpuscular HGB Conc 33.6 g/dl (31.0-35.0); Mean Corpuscular Volume 86.5 fL (80.0-98.0); Mean Platelet Volume 9.5 fL (9.4-12.3); Monocytes Absolute Auto 0.4 X10*3/uL (0.1-1.2); Monocytes Percent Auto 5.3 % (2-11); Neutrophils Absolute Auto 5.4 x10*3/uL (2.0-8.3); Neutrophils Percent Auto 71.6 % (45-73); Platelet Count 332 X10*3/uL (160-400); Red Blood Count 4.65 X10*6/uL (4.20-5.50); White Blood Count 7.6 X10*3/uL (4.8-10.8)
[2023-04-26 20:15] LABS: Alanine Aminotransferase 662 U/L (0-31); Albumin Level 4.3 g/dL (3.5-5.0); Alkaline Phosphatase 365 U/L (39-117); Anion Gap 13 (12-20); Aspartate Amino Transferase 255 U/L (5-31); Bilirubin Total 5.4 mg/dL (0.0-1.0); Blood Urea Nitrogen 15 mg/dL (9-16); Calcium 9.8 mg/dL (8.4-10.2); Carbon Dioxide 25 mmol/L (22-29); Chloride 105 mmol/L (96-108); Creatinine Clr Calc Pharmacy 109.1; Estimated Glomerular Filt Rate > 60; Glucose Random 104 mg/dL (60-115); Lipase 11 U/L (8-78); Magnesium 2.3 mg/dL (1.6-2.6); Potassium 4.3 mmol/L (3.3-5.1); Sodium 139 mmol/L (135-145); Total Protein 7.8 g/dL (6.5-8.0)
[2023-04-26 20:17] LABS: Troponin-I High Sensitivity < 2.7 ng/L (<3.5-17.0)
[2023-04-26 20:18] LABS: HCG Quantitative < 2 mIU/mL
[2023-04-26 21:16] VITALS: BP 119/64; PULSE 95; RESP 20; TEMP 36.8; O2SAT 98
[2023-04-26 21:27] LABS: Appearance Urine Clear; Color Urine Dark Yellow; Glucose Urine UA Negative (Negative); Leukocyte Esterase Urine Trace (Negative); Nitrite Urine Negative (Negative); PH 5.5 (5.0-9.0); Specific Gravity - Urine 1.025 (1.005-1.025); UMIC TRIGGER UACC YES; Urine Blood Negative (Negative); Urine Ketones Trace mg/dL (Negative); Urine Protein Negative (Neg-Trace)
[2023-04-26 21:58] LABS: Bacteria Urine Trace (None Seen); Hyaline Casts Urine 0-2 /LPF (0-2); WBC Urine 0-5 /HPF (0-5)
[2023-04-26] MEDS: 0.9 % Sodium Chloride 1,000 ML 999 ML IV (22:56)
[2023-04-26] MEDS: Morphine Sulfate 4 MG/ML CARTRIDGE IVPUSH (22:56)
--- NOTE | 2023-04-26 23:01 | PC.NURSE ---
assumed care of pt- pt taken to CT scan 20g IV placed in R- AC
[2023-04-27] VITALS (7 sets, daily range): BP systolic 102–122; BP diastolic 52–76; PULSE 62–72; RESP 14–22; TEMP 36.6–37.1; O2SAT 98–99; BMI 32.9
--- NOTE | 2023-04-27 00:14 | PC.NURSE ---
This RN at bedside for medication administration. Pt noted to be in CT @ this time.
[2023-04-27] MEDS: iohexoL 350 MG/ML 100 ML INFUS..BTL 85 ML IV (00:24)
[2023-04-27] MEDS: HYDROmorphone HCl 2 MG/ML VIAL IVPUSH ×2 (00:39→23:52)
--- NOTE | 2023-04-27 01:59 | PM.IMHP ---
History of Present Illness Date of Service: 04/27/23 Chief Complaint: Abdominal Pain This is a 28-year-old female with pertinent history of tobacco use disorder who presents to the emergency department for evaluation of abdominal discomfort. Patient states that epigastric pain started 3 days prior to presentation. It is constant, progressive and without any relieving factors. Also has associated nausea and nonbloody emesis. Does endorse chills. No diarrhea or fever. Patient had a cholecystectomy in 2020. Patient is with decreased p.o. intake due to nausea and pain. Patient denies chest discomfort, palpitations, shortness of breath, changes in urinary or bowel habits. In the emergency department, imaging with possible mild intra hepatic biliary ductal dilatation. GI was consulted who requested admission Review of Systems Constitutional: Constitutional: Reports no additional constitutional complaints Cardiovascular: Cardiovascular: Reports no additional cardiovascular complaints Respiratory: Respiratory: Reports no additional respiratory complaints Gastrointestinal: Gastrointestinal: Reports abdominal pain, Reports nausea and Reports vomiting Genitourinary: Genitourinary: Reports no additional female genitourinary complaints [facility] Medical History Tobacco use disorder Pertinent family history: No family history of early CAD Surgical History S/P cholecystectomy Social History Patient Tobacco Use Status: Never used Tobacco Smoked in Last 30 Days: No Use of substances other than those prescribed or required for medical reasons: No Advance Directives: No Advance Directives Information Provided: No Nutrition Risks: No Nutritional Risk Patient : No Meds Allergies Allergy/AdvReac Type Severity Reaction Status Date / Time No Known Allergies Allergy Verified 03/18/23 08:31 Physical Exam Vital Signs and Narrative: Vital Signs: Last Vital Signs Temp 98.2 F 04/26/23 21:16 Pulse 72 04/27/23 00:54 Resp 16 04/27/23 00:54 BP 122/76 04/27/23 00:54 Pulse Ox 99 04/27/23 00:54 O2 Del Method Room Air 04/27/23 00:54 BMI result Body Mass Index 32.9 Middle-aged female lying in bed in mild distress Neck supple, no JVD Regular rate and rhythm, S1-S2 heard Regular breath sounds bilaterally, no wheezing or crackles appreciated Abdomen with epigastric tenderness, no guarding, no rigidity, no rebound tenderness Patient is awake, alert and oriented to self, place, time and person ; no focal motor deficit Psych: Normal mood No pedal edema Results Labs 04/26/23 19:46 04/26/23 19:46 Labs: Laboratory Results - last 24 hr 04/26/23 04/26/23 19:46 21:19 MCV 86.5 MCH 29.0 MCHC 33.6 RDW 13.0 Plt Count 332 MPV 9.5 Immature Gran % (Auto) 0.4 Neut % (Auto) 71.6 Lymph % (Auto) 20.8 [place] % (Auto) 5.3 Eos % (Auto) 1.5 Baso % (Auto) 0.4 Lymph # (Auto) 1.6 [place] # (Auto) 0.4 Eos # (Auto) 0.1 Baso # (Auto) 0.0 Abs Immat Gran (auto) 0.03 Absolute Neuts (auto) 5.4 Absolute Nucleated RBC 0.000 Nucleated RBC % (auto) 0.0 Anion Gap 13 Estim Creat Clear Calc 109.1 Estimated GFR > 60 Random Glucose 104 Calcium 9.8 D Magnesium 2.3 Total Bilirubin 5.4 H AST 255 H ALT 662 H Alkaline Phosphatase 365 H Total Protein 7.8 Albumin 4.3 Lipase 11 Beta HCG, Quant < 2 Urine Color Dark Yellow Urine Appearance Clear Urine pH 5.5 Ur Specific [place] 1.025 Urine Protein Negative Urine Glucose (UA) Negative Urine Ketones Trace Urine Blood Negative Urine Nitrite Negative Ur Leukocyte Esterase Trace H Urine RBC 3-5 H Urine WBC 0-5 Ur Squamous Epith Cells 6-10 Urine Bacteria Trace Hyaline Casts 0-2 Imaging Radiologist's Impressions: Impressions Abdomen Ultrasound 04/26/23 19:22 IMPRESSION: 1. There is mild intrahepatic biliary ductal dilatation. No definite extrahepatic biliary ductal dilatation is seen. The gallbladder is surgically absent. If of continued clinical concern, this can be further evaluated with abdominal MRI/MRCP or a nuclear HIDA scan. 2. Technically limited ultrasound examination of the pancreas. Abdomen/Pelvis CT 04/26/23 23:20 IMPRESSION: No significant abnormality. Status post cholecystectomy. Fleischner guidelines were followed. Abdomen/Pelvis CT 04/27/23 00:15 IMPRESSION: Status post cholecystectomy. Mild to moderate intrahepatic biliary ductal dilatation, which could be secondary to postcholecystectomy state though obstruction in the common bile duct could also result in this appearance. This could be further assessed with MRI/MRCP. Assessment and Plan (1) Intrahepatic bile duct dilation: Status: Acute (2) Hyperbilirubinemia: Status: Acute Plan This is a 28-year-old female with pertinent history of tobacco use disorder who presents to the emergency department for evaluation of abdominal discomfort. #. Abdominal pain with elevated LFTs: Imaging with possible mild intrahepatic biliary ductal dilatation. GI was consulted from the ER, appreciate assistance. Obtaining MRCP. IV opioids p.r.n. for symptomatic relief #. Tobacco use disorder: Counseled regarding cessation. Refused nicotine patch DVT prophylaxis: None. Patient is ambulatory Full code Time Spent With Patient Time: Total time managing care of this patient today ____ minutes. Quality Stroke Does the patient have a stroke diagnosis?: No VTE Prior VTE?: No VTE Risk Level:: Medical - low VTE Device Contraindication: Treatment Not Indicated VTE Drug Contraindication: Treatment Not Indicated
[2023-04-27] MEDS: Morphine Sulfate 4 MG/ML CARTRIDGE IVPUSH ×5 (02:45→20:11)
[2023-04-27 02:48] LABS: Lactic Acid 0.6 mmol/L (0.5-2.0)
[2023-04-27] MEDS: HYDROmorphone HCl 1 MG/ML SYRINGE IVPUSH ×2 (04:42→21:43)
--- NOTE | 2023-04-27 05:19 | PC.NURSE ---
pt transfered from [facility] into room 19
[2023-04-27 06:08] LABS: Basophils Percent Auto 0.3 % (0-2); Eosinophils Absolute Auto 0.1 X10*3/uL (0.0-0.4); Eosinophils Percent Auto 0.8 % (0-4); Hematocrit 35.4 % (37.0-47.0); Hemoglobin 11.7 g/dl (12.0-16.0); Imm Gran Abs Auto 0.05 X10*3/uL (0.00-0.03); Imm Gran Pct Auto 0.5 % (0.0-0.4); Lymphocytes Absolute Auto 1.9 X10*3/uL (1.2-4.9); Lymphocytes Percent Auto 18.7 % (20-40); MANUAL DIFF FLAG NO; Mean Corpuscular HGB Conc 33.1 g/dl (31.0-35.0); Mean Corpuscular Hemoglobin 28.4 pg (27.0-33.0); Mean Corpuscular Volume 85.9 fL (80.0-98.0); Mean Platelet Volume 10.3 fL (9.4-12.3); Monocytes Absolute Auto 0.7 X10*3/uL (0.1-1.2); Monocytes Percent Auto 7.1 % (2-11); Neutrophils Absolute Auto 7.3 x10*3/uL (2.0-8.3); Neutrophils Percent Auto 72.6 % (45-73); Platelet Count 290 X10*3/uL (160-400); Red Blood Count 4.12 X10*6/uL (4.20-5.50)
[2023-04-27 06:36] LABS: Anion Gap 14 (12-20); Blood Urea Nitrogen 10 mg/dL (9-16); Calcium 8.9 mg/dL (8.4-10.2); Carbon Dioxide 20 mmol/L (22-29); Chloride 108 mmol/L (96-108); Creatinine Clr Calc Pharmacy 129.5; Estimated Glomerular Filt Rate > 60; Glucose Random 81 mg/dL (60-115); Potassium 3.8 mmol/L (3.3-5.1); Sodium 138 mmol/L (135-145)
[2023-04-27] MEDS: ondansetron HCL 4 MG/2 ML VIAL IVPUSH (07:54)
[2023-04-27] MEDS: 0.9 % Sodium Chloride Flush 3 ML SYRINGE IVFLUSH (07:58)
--- NOTE | 2023-04-27 08:11 | PHA.MEDREC ---
Pharmacy Consult ? Medication Reconciliation Pharmacy has completed the medication reconciliation.
[2023-04-27 08:28] LABS: HBS Num1 3.81 mIU/mL (0-7.99); HBc Num1 0.08 S/CO (0.00-0.79); Hepatitis A Antibody IgM 0.22 Index (0-0.79); Hepatitis B Core Antibody Nonreactive (Nonreactive); Hepatitis B Surface Antigen Negative (Negative); ~HepC Num1 0.06 S/CO (0.00-0.79); ~Hepatitis A Antibody IgM Nonreactive (Nonreactive); ~Hepatitis B Surface Antibody NONREACTIVE (Nonreactive); ~Hepatitis C Antibody Nonreactive (Nonreactive)
--- NOTE | 2023-04-27 09:07 | PC.NURSE ---
ASSUMED CARE OF THIS PT AT 0700. PT REQUESTED PAIN MEDS FOR 10/10 EPIGASTRIC PAIN. PRN PAIN MED GIVEN ORDERED. MRI PENDING, PT REMAINS NPO . PT'S MOTHER AT HER BEDSIDE. PT AND HER MOTHER AWARE OF PLAN OF CARE. VSS.
[2023-04-27 09:20] LABS: Alanine Aminotransferase 553 U/L (0-31); Albumin Level 3.8 g/dL (3.5-5.0); Alkaline Phosphatase 325 U/L (39-117); Aspartate Amino Transferase 231 U/L (5-31); Bilirubin Direct 3.8 mg/dL (0.0-0.5); Bilirubin Total 4.6 mg/dL (0.0-1.0); Total Protein 6.8 g/dL (6.5-8.0)
--- NOTE | 2023-04-27 10:29 | PM.GICN ---
History of Present Illness Data of Consult Service Date: 04/27/23 Requesting physician: Kaylah Fuchs Primary Care Provider: None Physician HPI Reason for consult: Elevated LFTs This is a 28-year-old female with past medical history of cholecystectomy in 2020, who presented to the hospital for abdominal pain and was found have elevated LFTs. Gastroenterology has been consulted for further evaluation. History obtained from the patient, who states that she had sudden onset of pain 2 days prior to presenting to the emergency room which he describes as sharp, located in the epigastrium and right side which radiates to her back. Associated with nausea and vomiting. No fevers, chills, changes in bowel habits. Over the last 1 day, she has been unable to tolerate anything p.o. and therefore presented to the emergency room. On initial evaluation was noted to be afebrile and vitally stable. Labs were significant for elevated LFTs with bilirubin of 5.4 alk phos of 365, AST 255 and ALT of 662. These are modestly decreased today. Patient had [address] scans overnight. No CBD stone reported on the CAT scan or the ultrasound, however on my review of the non-con CT, appears to have a radio-opaque punctate mid CBD stone with significant john dil to 12 mm. MRCP pending this morning. Review of Systems Review of Systems: Yes all other systems are reviewed and are negative PMFSH Past Medical History Medical History Tobacco use disorder Surgical History Surgical History S/P cholecystectomy Social History Social History Patient Tobacco Use Status: Never used Tobacco Smoked in Last 30 Days: No Use of substances other than those prescribed or required for medical reasons: No Advance Directives: No Advance Directives Information Provided: No Nutrition Risks: No Nutritional Risk Patient : No service: No Meds Allergies Allergy/AdvReac Type Severity Reaction Status Date / Time No Known Allergies Allergy Verified 03/18/23 08:31 Active Medications: Current Medications Acetaminophen (Acetaminophen 325 Mg Tablet) 650 mg PO Q6H PRN PRN Reason: Pain, Mild (Pain Scale 1-3) Melatonin (Melatonin 3 Mg Tablet) 6 mg PO BEDTIME PRN PRN Reason: Insomnia Morphine Sulfate (Morphine Sulfate 4 Mg/Ml Cartridge) 4 mg IVPUSH Q4H PRN; Protocol PRN Reason: Pain, Severe (Pain Scale 7-10) Last Admin: 04/27/23 07:54 Dose: 4 mg Ondansetron HCl (Ondansetron Hcl 4 Mg/2 Ml Vial) 4 mg IVPUSH Q8H PRN PRN Reason: Nausea and Vomiting Last Admin: 04/27/23 07:54 Dose: 4 mg Sodium Chloride (0.9 % Sodium Chloride Flush 3 Ml Syringe) 3 ml IVFLUSH QSHIFT [facility] Last Admin: 04/27/23 07:58 Dose: 3 ml Home Medications Medication Instructions Recorded Confirmed Last Taken Type omeprazole 20 mg capsule,delayed 20 mg PO DAILY 04/27/23 04/27/23 Unknown History release Physical Exam Vital Signs: Vital Signs: Last Vital Signs Temp 98.2 F 04/26/23 21:16 Pulse 63 04/27/23 07:56 Resp 20 04/27/23 07:56 BP 102/59 L 04/27/23 06:14 Pulse Ox 98 04/27/23 06:14 O2 Del Method Room Air 04/27/23 06:14 BMI result Body Mass Index 32.9 Gen appear: Young female, in moderate distress HEENT: icteric, no cervical lymphadenopathy Chest: CTA CVS: Regular S1/S2 Abd: soft, tender diffusely with guarding, bowel sounds + Ext: no peripheral edema Neuro: A/Ox3, noted to move all extremities spontaneously Psych: interacting appropriately Results Labs 04/27/23 05:28 04/27/23 05:28 Labs: Short CBC 04/26/23 04/27/23 Range/Units 19:46 05:28 WBC 7.6 10.0 (4.8-10.8) X10*3/uL Hgb 13.5 11.7 L (12.0-16.0) g/dl Hct 40.2 35.4 L (37.0-47.0) % Plt Count 332 290 (160-400) X10*3/uL BMP 04/26/23 04/27/23 19:46 05:28 Sodium 139 138 Potassium 4.3 3.8 Chloride 105 108 Carbon Dioxide 25 20 L BUN 15 10 Creatinine 0.76 0.64 Calcium 9.8 D 8.9 D Liver Function 04/26/23 04/27/23 Range/Units 19:46 05:28 Total Bilirubin 5.4 H 4.6 H (0.0-1.0) mg/dL Direct Bilirubin 3.8 H (0.0-0.5) mg/dL AST 255 H 231 H (5-31) U/L ALT 662 H 553 H (0-31) U/L Alkaline Phosphatase 365 H 325 H (39-117) U/L Albumin 4.3 3.8 (3.5-5.0) g/dL Urine 04/26/23 Range/Units 21:19 Urine Color Dark Yellow Urine Appearance Clear Urine pH 5.5 (5.0-9.0) Ur Specific [place] 1.025 (1.005-1.025) Urine Protein Negative (Neg-Trace) mg/dL Urine Glucose (UA) Negative (Negative) mg/dL Assessment and Plan (1) Intrahepatic bile duct dilation: Status: Acute (2) Hyperbilirubinemia: Status: Acute (3) S/P cholecystectomy: Status: Acute Plan Based on her presentation, LFT pattern and CBD dilation, has high probability of CBD stone. Although not reported, a radio-opaque is visible in mid cbd on the CT scan when images personally reviewed. In any case, MRCP pending from this morning. If MRCP confirms choledocholithiasis, patient will need an ERCP for biliary drainage and clearance. Case was also reviewed with Dr. Betts and patient tentatively on the list for tomorrow. UPDATE: MRCP reviewed. Confirms 6 mm stone in mid CBD. ERCP tmrw. Please keep her NPO after MN. Can have clears today if tolerated. Time Spent With Patient Time: Total time managing care of this patient today ____ minutes. Procedures Date of Service Date of Service: 04/27/23
--- NOTE | 2023-04-27 11:25 | MHC.CM.PN ---
CM ATTEMPTED TO MEET WITH PT WHO WAS OFF UNIT, PTS MOTHER WAS PRESENT WAITING FOR HER TO RETURN BATTALION CHIEF COMPLETED WITH PTS MOTHER WITH ASSISTANCE OF [facility] PT LIVES ALONE AND IS INDEPENDENT WITH CARE PT HAS NO DME AND NO SERVICES PT HAS A PCP IN [place], MOTHER DOES NOT HAVE THE NAME / LOCATION PT HAS NOT COMPLETED A HCP TO HER MOTHERS KNOWLEDGE, MOTHER IS AWARE CM CAN ASSIST OBSERVATION NOTICE DELIVERED DCP: HOME, NO SERVICES FAMILY TO TRANSPORT.
--- NOTE | 2023-04-27 11:34 | PM.EVENT ---
Event Note Date of Service: 04/27/23 Event Note: pt see/examined, comfortable at present. A/P per H and P from tday Time Spent With Patient Time: Total time managing care of this patient today ____ minutes.
[2023-04-28] VITALS (14 sets, daily range): BP systolic 109–128; BP diastolic 50–73; PULSE 65–81; RESP 12–20; TEMP 36.1–37.1; O2SAT 94–100; BMI 32.9
[2023-04-28] MEDS: Morphine Sulfate 4 MG/ML CARTRIDGE IVPUSH (02:07)
[2023-04-28] MEDS: ondansetron HCL 4 MG/2 ML VIAL IVPUSH (02:55)
[2023-04-28] MEDS: HYDROmorphone HCl 2 MG/ML VIAL IVPUSH ×4 (03:11→21:23)
[2023-04-28] MEDS: LORazepam 2 MG/ML VIAL 1 MG IVPUSH (03:27)
--- NOTE | 2023-04-28 04:55 | PC.NURSE ---
Addendum entered by Sneha Ravi RN 04/28/23 06:44: pt was given 2mg of dilaudid 1hour early due to increased pain adilson hardy MD aproved of this. Original Note: pt arrived to the floor with 10/10 abdominal pain to the upper right quadrant and epigastric region. pt was given morphine with no relief from pain. MD notified at 21:33. pt pain remained 10/10 with some relief from heat packs and a hot shower. pt was given 1mg of dilaudid which did not bring down pain either. Adilson hardy ordered 2mg and patient was given that at 2352. pt then rested until 0250 when she began to vomit and complain of unbearable 10/10 pain to the epigastric region that radiated to her back. pt was most comfortable on her hands and knees bent over. Adilson hardy made aware and asked to come to the bedside. Jef ordered dilaudid and ativan which were administered at 0315 with mild relief of pain. Ativan helped to calm pt enough to allow for rest despite continued 9/10 pain. pt. currently resting in bed.
--- NOTE | 2023-04-28 10:19 | MHC.CM.PN ---
CM MET W/PT AND PARTNER AT BEDSIDE, PARTNER IN AGREEMENT THAT PT WILL STAY W/HIM ON D/C FROM HOSPITAL AND WOULD LIKE MEDS FILLED HERE AT [facility] IF POSSIBLE, PT NOT CLEARED FOR AT THIS TIME, CM WILL CONT TO FOLLOW D/C NEEDS.
--- NOTE | 2023-04-28 10:24 | HO.PM.IMPN ---
Subjective Subjective Date of Service: 04/28/23 Interval History: 12/18 epigstric pain Physical Exam Vital Signs: Vital Signs: Last Vital Signs Temp 97.5 F 04/28/23 07:23 Pulse 81 04/28/23 07:23 Resp 20 04/28/23 07:23 BP 112/57 L 04/28/23 07:23 Pulse Ox 98 04/28/23 07:23 O2 Del Method Room Air 04/28/23 07:23 BMI result Body Mass Index 32.9 Objective Data Active Medications Acetaminophen (Acetaminophen 325 Mg Tablet) 650 mg PO Q6H PRN PRN Reason: Pain, Mild (Pain Scale 1-3) Hydromorphone HCl (Hydromorphone Hcl 2 Mg/Ml Vial) 2 mg IVPUSH Q4H PRN; Protocol PRN Reason: Pain, Severe (Pain Scale 7-10) Last Admin: 04/28/23 06:21 Dose: 2 mg Documented By: MARY Melatonin (Melatonin 3 Mg Tablet) 6 mg PO BEDTIME PRN PRN Reason: Insomnia Omeprazole (Omeprazole 20 Mg Capsule.Dr) 20 mg PO DAILY@0630 [facility] Last Admin: 04/28/23 06:25 Dose: Not Given Documented By: MARY Non-Admin Reason: NPO Ondansetron HCl (Ondansetron Hcl 4 Mg/2 Ml Vial) 4 mg IVPUSH Q8H PRN PRN Reason: Nausea and Vomiting Last Admin: 04/28/23 02:55 Dose: 4 mg Documented By: MARY Sodium Chloride (0.9 % Sodium Chloride Flush 3 Ml Syringe) 3 ml IVFLUSH QSHIFT [facility] Last Admin: 04/28/23 09:39 Dose: Not Given Documented By: LISA Non-Admin Reason: Patient Asleep Labs 04/27/23 05:28 04/27/23 05:28 Microbiology Microbiology Results: Microbiology 04/27/23 02:22 Blood Culture - Preliminary Blood - Venous No growth after 24 hours. 04/27/23 02:22 Blood Culture - Preliminary Blood - Venous No growth after 24 hours. Assessment and Plan (1) Choledocholithiasis: Status: Acute Plan A 50-year-old woman, with a relevant history of tobacco use disorder, presented to the emergency department with abdominal discomfort. During evaluation, elevated liver function tests (LFTs), common bile duct (CBD) dilatation, and a 6 mm CBD stone are identified on MRCP. Her clinical presentation aligns with Choledocholithiasis. Plan: NPO, ERCP stone extraction today. Pain control with IV dilaudid. Surgery consult. Advance diet after procedure #. Tobacco use disorder: Counseled regarding cessation. Refused nicotine patch DVT prophylaxis: None. Patient is ambulatory Full code Time Spent With Patient Time: Total time managing care of this patient today ____ minutes. Quality Stroke Does the patient have a stroke diagnosis?: No VTE Prior VTE?: No VTE Risk Level:: Medical - low VTE Device Contraindication: Treatment Not Indicated VTE Drug Contraindication: Treatment Not Indicated
[2023-04-28 10:40] LABS: Alanine Aminotransferase 565 U/L (0-31); Albumin Level 3.8 g/dL (3.5-5.0); Alkaline Phosphatase 368 U/L (39-117); Aspartate Amino Transferase 262 U/L (5-31); Bilirubin Direct 4.1 mg/dL (0.0-0.5); Bilirubin Total 4.9 mg/dL (0.0-1.0); Total Protein 6.9 g/dL (6.5-8.0)
[2023-04-28] MEDS: HYDROmorphone HCl 1 MG/ML SYRINGE IVPUSH (12:19)
--- NOTE | 2023-04-28 12:59 | P.CONAN_ITS ---
HPI - Anesthesia Eval Consult details Narrative: 28 F for ERCP Left facial pralysis after left ear infection , herpes zoster , residual left eye droop and asymmetrical smile PMF Active Problems Active Problems: All Active Problems (Updated 04/28/23 @ 10:31 by Cruz Saucedo MD) Choledocholithiasis (Acute) Tobacco use disorder (Acute) S/P cholecystectomy (Acute) Jaundice (Acute) Intrahepatic bile duct dilation (Acute) Hyperbilirubinemia (Acute) Past Medical History Medical History Tobacco use disorder Family History Family history of problems with anesthesia: No Surgical History Surgical History S/P cholecystectomy History of Problems with Anesthesia: No Social History Social History Household Members: Family Housing: Apartment Patient Tobacco Use Status: Current everyday Tobacco user Tobacco use type: Cigarette Cigarettes Per Day: 7 service: No Meds Allergies Allergy/AdvReac Type Severity Reaction Status Date / Time No Known Allergies Allergy Verified 04/28/23 12:59 Active Medications: Current Medications Acetaminophen (Acetaminophen 325 Mg Tablet) 650 mg PO Q6H PRN PRN Reason: Pain, Mild (Pain Scale 1-3) Hydromorphone HCl (Hydromorphone Hcl 2 Mg/Ml Vial) 2 mg IVPUSH Q4H PRN; Protocol PRN Reason: Pain, Severe (Pain Scale 7-10) Last Admin: 04/28/23 10:31 Dose: 2 mg Melatonin (Melatonin 3 Mg Tablet) 6 mg PO BEDTIME PRN PRN Reason: Insomnia Omeprazole (Omeprazole 20 Mg Capsule.Dr) 20 mg PO DAILY@0630 [facility] Last Admin: 04/28/23 06:25 Dose: Not Given Ondansetron HCl (Ondansetron Hcl 4 Mg/2 Ml Vial) 4 mg IVPUSH Q8H PRN PRN Reason: Nausea and Vomiting Last Admin: 04/28/23 02:55 Dose: 4 mg Sodium Chloride (0.9 % Sodium Chloride Flush 3 Ml Syringe) 3 ml IVFLUSH QSHIFT [facility] Last Admin: 04/28/23 09:39 Dose: Not Given Home Medications Medication Instructions Recorded Confirmed Last Taken Type omeprazole 20 mg capsule,delayed 20 mg PO DAILY 04/27/23 04/27/23 Unknown History release Exam Exam Date and Time: April 28, 2023 1259 Height,Weight and Vital Signs: Height 5 ft 2 in Weight 81.647 kg Last Vital Signs Temp 97.5 F 04/28/23 07:23 Pulse 81 04/28/23 07:23 Resp 16 04/28/23 12:19 BP 116/66 04/28/23 10:37 Pulse Ox 94 04/28/23 10:37 O2 Del Method Room Air 04/28/23 10:37 Pertinent Lab Results Pertinent Lab Results: Laboratory Tests 04/26/23 04/26/23 04/27/23 19:46 21:19 02:22 WBC 7.6 RBC 4.65 Hgb 13.5 Hct 40.2 MCV 86.5 MCH 29.0 MCHC 33.6 RDW 13.0 Plt Count 332 MPV 9.5 Immature Gran % (Auto) 0.4 Neut % (Auto) 71.6 Lymph % (Auto) 20.8 [place] % (Auto) 5.3 Eos % (Auto) 1.5 Baso % (Auto) 0.4 Lymph # (Auto) 1.6 [place] # (Auto) 0.4 Eos # (Auto) 0.1 Baso # (Auto) 0.0 Abs Immat Gran (auto) 0.03 Absolute Neuts (auto) 5.4 Absolute Nucleated RBC 0.000 Nucleated RBC % (auto) 0.0 Sodium 139 Potassium 4.3 Chloride 105 Carbon Dioxide 25 Anion Gap 13 BUN 15 Creatinine 0.76 Estim Creat Clear Calc 109.1 Estimated GFR > 60 Random Glucose 104 Lactic Acid 0.6 Calcium 9.8 D Magnesium 2.3 Total Bilirubin 5.4 H Direct Bilirubin AST 255 H ALT 662 H Alkaline Phosphatase 365 H Troponin I High Sens < 2.7 Total Protein 7.8 Albumin 4.3 Lipase 11 Beta HCG, Quant < 2 Urine Color Dark Yellow Urine Appearance Clear Urine pH 5.5 Ur Specific [place] 1.025 Urine Protein Negative Urine Glucose (UA) Negative Urine Ketones Trace Urine Blood Negative Urine Nitrite Negative Ur Leukocyte Esterase Trace H Urine RBC 3-5 H Urine WBC 0-5 Ur Squamous Epith Cells 6-10 Urine Bacteria Trace Hyaline Casts 0-2 Hepatitis A IgM Ab Nonreactive Hep Bs Antigen Negative Hep Bs Antibody NONREACTIVE Hep B Core Total Ab Nonreactive Hepatitis C Ab (EIA) Nonreactive 04/27/23 04/28/23 05:28 09:44 WBC 10.0 RBC 4.12 L Hgb 11.7 L Hct 35.4 L MCV 85.9 MCH 28.4 MCHC 33.1 RDW 13.0 Plt Count 290 MPV 10.3 Immature Gran % (Auto) 0.5 H Neut % (Auto) 72.6 Lymph % (Auto) 18.7 L [place] % (Auto) 7.1 Eos % (Auto) 0.8 Baso % (Auto) 0.3 Lymph # (Auto) 1.9 [place] # (Auto) 0.7 Eos # (Auto) 0.1 Baso # (Auto) 0.0 Abs Immat Gran (auto) 0.05 H Absolute Neuts (auto) 7.3 Absolute Nucleated RBC 0.000 Nucleated RBC % (auto) 0.0 Sodium 138 Potassium 3.8 Chloride 108 Carbon Dioxide 20 L Anion Gap 14 BUN 10 Creatinine 0.64 Estim Creat Clear Calc 129.5 Estimated GFR > 60 Random Glucose 81 Lactic Acid Calcium 8.9 D Magnesium Total Bilirubin 4.6 H 4.9 H Direct Bilirubin 3.8 H 4.1 H AST 231 H 262 H ALT 553 H 565 H Alkaline Phosphatase 325 H 368 H Troponin I High Sens Total Protein 6.8 6.9 Albumin 3.8 3.8 Lipase Beta HCG, Quant Urine Color Urine Appearance Urine pH Ur Specific [place] Urine Protein Urine Glucose (UA) Urine Ketones Urine Blood Urine Nitrite Ur Leukocyte Esterase Urine RBC Urine WBC Ur Squamous Epith Cells Urine Bacteria Hyaline Casts Hepatitis A IgM Ab Hep Bs Antigen Hep Bs Antibody Hep B Core Total Ab Hepatitis C Ab (EIA) Narrative Narrative: 04/26/2023 Normal sinus rhythm with sinus arrhythmia Normal ECG No previous ECGs available Airway Mallampati Class: IV Neck ROM: Full Loose/Missing/Broken Teeth: Yes Assessment and Plan Assessment Anesthesia Assessment: Anesthesia Plan Discussed and Chart Reviewed Final Anesthetic Review Family History of Problems with Anesthesia: No History of Problems with Anesthesia: No NPO: Yes ASA Class: III and Emergency Final Preanesthetic Review: Meds/Allgs Chart Reviewed, Consent Obtained/Reviewed and Anes Risks/Benef Reviewed Patient Risk: Intermediate Procedure Risk: Intermediate Anesthetic Plan Anesthetic Plan: GA and Agree w/ Assess. and Plan Disposition: Standard PACU
--- NOTE | 2023-04-28 13:14 | MHC.SHP ---
Pre-Procedural Eval Section A Date of Service: 04/28/23 The patient is an INPATIENT: Yes The History & Physical has been completed within 30 days and I have reviewed it.: Yes Section B Chief Complaint: Abdominal pain Allergies: Allergies Allergy/AdvReac Type Severity Reaction Status Date / Time No Known Allergies Allergy Verified 04/28/23 12:59 Plan I have reviewed the history and physical and performed a pertinent physical examination on my patient. No changes have occurred unless specified. ERCP due to imaging showing a stone in the CBD and abn LFT suggestive of obstruction Time Spent With Patient Time: Total time managing care of this patient today ____ minutes.
--- NOTE | 2023-04-28 13:15 | W.PM.OPN ---
Operative Note Operative Note Date of Service: 04/28/23 Narrative: Description: Endoscopic retrograde cholangiopancreatography (ERCP) PROCEDURE: Endoscopic retrograde cholangiopancreatography with sphincterotomy, cholangiogram and interpretation, pancreatic duct stent placement, balloon dilation INDICATION FOR THE PROCEDURE: Patient with a history of acute on chronic abdominal pain and imaging revealing CBD stone, labs with raised LFT MEDICATIONS: General anesthesia, rectal indomethacin 100 mg, cefotetan 1 g IV The risks of the procedure were made aware to the patient and consisted of medication reaction, bleeding, perforation, aspiration, and post ERCP pancreatitis. DESCRIPTION OF PROCEDURE: After informed consent and appropriate sedation, the duodenoscope was inserted into the oropharynx, down the esophagus, and into the stomach. The scope was then advanced through the pylorus to the ampulla. The ampulla had a normal appearance. the tome was angled to aim for the CBD but kept going into the PD. No contrast was injected. A hao precut was performed and the wire left in the PD. An angled wire was then used and access to the CBD was achieved. Contrast confirmed a stone in the mid CBD with dilated proximal biliary segments. A hurricaine balloon was used to stretch the sphincterotomy and then a 12 mm extraction balloon was used to extract the stone. Initially it was difficult but the balloon was run up and down the duct to try to break the stone and indeed pieces of stone material were extracted, saline was also flushed and the duct was draining successfully. I then placed a PD stent (single keven) 4 Fr x 3 cm into the PD. There was some minor oozing which had ceased by the end of the procedure. The stomach was then decompressed and the endoscope was withdrawn. FINDINGS: 1. choledocholithiasis RECOMMENDATIONS: 1. NPO except ice chips for next 4-6 hrs then clears as tolerated, can advance diet tomorrow if feels well 2. KUB in 48 hrs to make sure Pd stent falls out, otherwise will need to be removed endoscopically.
[2023-04-28] MEDS: LORazepam 2 MG/ML VIAL 0.5 MG IVPUSH (17:55)
[2023-04-28] MEDS: 0.9 % Sodium Chloride Flush 3 ML SYRINGE IVFLUSH (21:25)
[2023-04-28] MEDS: Nicotine Polacrilex 2 MG GUM BUCCAL (23:02)
[2023-04-29] VITALS (7 sets, daily range): BP systolic 108–126; BP diastolic 58–69; PULSE 80–100; RESP 16–20; TEMP 36.7–37; O2SAT 96–99
[2023-04-29] MEDS: HYDROmorphone HCl 2 MG/ML VIAL IVPUSH ×2 (01:26→04:29)
[2023-04-29] MEDS: oxyCODONE HCl Immed Release 5 MG TABLET PO (08:18)
[2023-04-29] MEDS: 0.9 % Sodium Chloride Flush 3 ML SYRINGE IVFLUSH ×3 (08:24→22:44)
--- NOTE | 2023-04-29 10:21 | MHC.CM.PN ---
Addendum entered by Brianna Puckett RN 04/29/23 10:25: CALL TO ATTY GUNNAR AT [phone] DATE OF JUNE 10, 2023 @ 0900 AND NO FURTHER ASSISTANCE FROM T/W IS NEEDED. Original Note: PATIENT REQUESTS THAT THIS RN HEMODIALYSIS CHARGE CALL HER DRIVER OPERATOR (JOSSIE MAHER) AT [phone]. PATIENT GIVES PERMISSION TO SHARE INFORMATION REGARDING HER STAY HERE AT [facility] [place] IF NEEDED. CALL TO NUMBER WHICH IS A FAX NUMBER. PATIENT AWARE
[2023-04-29] MEDS: HYDROmorphone HCl 1 MG/ML SYRINGE IVPUSH ×3 (10:28→18:41)
--- NOTE | 2023-04-29 10:30 | MHC.CM.PN ---
PER PHYSICIAN ROUNDS, PLAN IS TO TRANSITION TO PO MEDICATION, ADVANCE DIET, AND PLAN FOR DISCHARGE DISCHARGE PLAN IS HOME - SELF CARE.
[2023-04-29 10:59] LABS: Amphetamine Screen Urine Not Detected (Not Detect); Barbiturates, Urine Not Detected (Not Detect); Benzodiazepines Screen Urine POSITIVE (Not Detect); Cannabinoid Screen Urine Not Detected (Not Detect); Cocaine Screen Urine Not Detected (Not Detect); Fentanyl, urine Not Detected (Not Detect); Opiate Screen Urine POSITIVE (Not Detect); Phencyclidine Screen Urine Not Detected (Not Detect)
--- NOTE | 2023-04-29 11:04 | P.PNIM_ITS ---
Subjective Subjective Date of Service: 04/29/23 Interval History: f/u on choledocholithiasis, s/p ERCP with stone extraction Still c/o of pain and has low tolerance for pain Physical Exam 2 Vital Signs: Vital Signs: Last Vital Signs Temp 98.1 F 04/29/23 07:19 Pulse 83 04/29/23 07:19 Resp 16 04/29/23 10:28 BP 126/69 04/29/23 07:19 Pulse Ox 99 04/29/23 07:19 O2 Del Method Room Air 04/29/23 07:19 O2 Flow Rate 3 04/28/23 20:00 BMI result Body Mass Index 32.9 Const: Other: General: AO X 3, no acute distress Resp: CTA bilateral CVS: S1,S2,RRR GI: +BS, NT, no distention Skin: No rash Neuro: motor grossly intact Psych: appropriate affect Objective Data Active Medications Acetaminophen (Acetaminophen 325 Mg Tablet) 650 mg PO Q6H PRN PRN Reason: Pain, Mild (Pain Scale 1-3) Hydromorphone HCl (Hydromorphone Hcl 1 Mg/Ml Syringe) 1 mg IVPUSH Q4H PRN; Protocol PRN Reason: Pain, Severe (Pain Scale 7-10) Last Admin: 04/29/23 10:28 Dose: 1 mg Documented By: LISA Melatonin (Melatonin 3 Mg Tablet) 6 mg PO BEDTIME PRN PRN Reason: Insomnia Nicotine Polacrilex (Nicotine Polacrilex 2 Mg Gum) 2 mg BUCCAL Q2H PRN PRN Reason: Nicotine Cravings Last Admin: 04/28/23 23:02 Dose: 2 mg Documented By: MARY Omeprazole (Omeprazole 20 Mg Capsule.) 20 mg PO DAILY@0630 [facility]PLACED BY [facility] Last Admin: 04/29/23 06:32 Dose: Not Given Documented By: MARY Non-Admin Reason: pt unable to swallow Ondansetron HCl (Ondansetron Hcl 4 Mg/2 Ml Vial) 4 mg IVPUSH Q8H PRN PRN Reason: Nausea and Vomiting Last Admin: 04/28/23 02:55 Dose: 4 mg Documented By: MARY Oxycodone HCl (Oxycodone Hcl Immed Release 5 Mg Tablet) 5 mg PO Q4H PRN PRN Reason: Pain, Severe (Pain Scale 7-10) Last Admin: 04/29/23 08:18 Dose: 5 mg Documented By: LISA Sodium Chloride (0.9 % Sodium Chloride Flush 3 Ml Syringe) 3 ml IVFLUSH QSHIFT REPLACED BY [facility] Last Admin: 04/29/23 08:24 Dose: 3 ml Documented By: JASONTEKR Labs 04/27/23 05:28 04/27/23 05:28 Labs: Laboratory Results - last 24 hr 04/29/23 10:40 Urine Opiates Screen POSITIVE H Urine Fentanyl Screen Not Detected Ur Barbiturates Screen Not Detected Ur Phencyclidine Scrn Not Detected Ur Amphetamines Screen Not Detected U Benzodiazepines Scrn POSITIVE H Urine Cocaine Screen Not Detected U Marijuana (THC) Screen Not Detected Microbiology Microbiology Results: Microbiology 04/27/23 02:22 Blood Culture - Preliminary Blood - Venous No growth after 48 hours. 04/27/23 02:22 Blood Culture - Preliminary Blood - Venous No growth after 48 hours. Assessment and Plan (1) Choledocholithiasis: Status: Acute Plan A 28-year-old woman, with a relevant history of tobacco use disorder, presented to the emergency department with abdominal discomfort. During evaluation, elevated liver function tests (LFTs), common bile duct (CBD) dilatation, and a 6 mm CBD stone are identified on MRCP. Her clinical presentation aligns with Choledocholithiasis. Plan:Had ERCP stone extraction and pancreatic stent placement on 04/[address] Betts, she is still complaining of pain. Post ERCP recommendation as follow: 1. NPO except ice chips for next 4-6 hrs then clears as tolerated, can advance diet tomorrow if feels well 2. KUB in 48 hrs to make sure Pd stent falls out, otherwise will need to be removed endoscopically. #. Tobacco use disorder: Counseled regarding cessation. Refused nicotine patch DVT prophylaxis: None. Patient is ambulatory Full code Time Spent With Patient Time: Total time managing care of this patient today ____ minutes. Quality Stroke Does the patient have a stroke diagnosis?: No VTE Prior VTE?: No VTE Risk Level:: Medical - low VTE Device Contraindication: Treatment Not Indicated VTE Drug Contraindication: Treatment Not Indicated
[2023-04-29] MEDS: Nicotine Polacrilex 2 MG GUM BUCCAL (11:24)
--- NOTE | 2023-04-29 13:14 | P.PNGI_ITS ---
Subjective Subjective Date of Service: 04/29/23 Interval History: patient feels no improvement in pain since ercp abdomen is soft, denies passing gas or feeling hungry no vomiting, no fever Critical Care Time (minutes): 0 Physical Exam 2 Vital Signs: Vital Signs: Last Vital Signs Temp 98.0 F 04/29/23 11:07 Pulse 82 04/29/23 11:07 Resp 16 04/29/23 11:07 BP 117/66 04/29/23 11:07 Pulse Ox 96 04/29/23 11:07 O2 Del Method Room Air 04/29/23 11:07 O2 Flow Rate 3 04/28/23 20:00 BMI result Body Mass Index 32.9 EXAM: GENERAL: The patient is well developed and nontoxic. VITAL SIGNS:see workflow HEENT: Nonicteric sclerae, PERRLA, EOMI. Oropharynx clear. Moist mucous membranes. Conjunctivae appear well perfused. No thyroid mass. CHEST: Chest wall is nontender. HEART: Regular rate and rhythm without murmurs. LUNGS: Clear to auscultation bilaterally. ABDOMEN: Soft, positive bowel sounds, tender epigastric area but no guarding, no organomegaly.no flank tenderness SKIN: No rash, no excessive bruising, petechiae, or purpura. NEUROLOGIC: Cranial nerves II-XII intact without motor/sensory deficit. Psych: Appearance: grossly normal Objective Data Labs 04/27/23 05:28 04/27/23 05:28 Labs: Laboratory Results - last 24 hr 04/29/23 10:40 Urine Opiates Screen POSITIVE H Urine Fentanyl Screen Not Detected Ur Barbiturates Screen Not Detected Ur Phencyclidine Scrn Not Detected Ur Amphetamines Screen Not Detected U Benzodiazepines Scrn POSITIVE H Urine Cocaine Screen Not Detected U Marijuana (THC) Screen Not Detected Microbiology Microbiology Results: Microbiology 04/27/23 02:22 Blood - Venous Blood Culture - Preliminary No growth after 48 hours. 04/27/23 02:22 Blood - Venous Blood Culture - Preliminary No growth after 48 hours. Procedures Date of Service Date of Service: 04/29/23 Progress Note: A&P Assessment and plan (1) Choledocholithiasis: Status: Acute Plan 1/ Choledocholithiasis, s/p ERCP with stone extraction post op complaining of on going pain, ddx; retained stone, post op ERCP pancreatitis--abdomen is v soft, no involuntary guarding or rigidity PLAN: 1/ rechekc labs, serial abdo exam 2/ if ongoing sx the CT and possible rept ERCP Tuesday Time Spent With Patient Time: Total time managing care of this patient today ____ minutes. Quality Stroke Does the patient have a stroke diagnosis?: No VTE Prior VTE?: No VTE Risk Level:: Medical - low VTE Device Contraindication: Treatment Not Indicated VTE Drug Contraindication: Treatment Not Indicated
--- NOTE | 2023-04-29 14:26 | HO.POSTANES ---
Post Anesthesia Evaluation Post Anesthesia Evaluation Date of Service: 04/29/23 Vital Signs: Vital Signs Temp Pulse Resp BP Pulse Ox O2 Del Method 04/29/23 11:07 98.0 F 82 16 117/66 96 Room Air 04/29/23 10:28 16 04/29/23 07:19 98.1 F 83 20 126/69 99 Room Air 04/29/23 04:00 98.6 F 80 18 118/63 98 Room Air Anesthesia: General Endotracheal-GETA Mental Status: Awake Pain Control: Satisfactory Nausea/Vomiting: None Hydration: Adequate Anesthesia-Related Issues: No Anes. Related Issues
[2023-04-29 15:37] LABS: Lipase 409 U/L (8-78)
[2023-04-29 16:10] LABS: Alanine Aminotransferase 692 U/L (0-31); Albumin Level 3.6 g/dL (3.5-5.0); Alkaline Phosphatase 419 U/L (39-117); Aspartate Amino Transferase 406 U/L (5-31); Bilirubin Direct 3.4 mg/dL (0.0-0.5); Bilirubin Total 4.6 mg/dL (0.0-1.0); Total Protein 6.6 g/dL (6.5-8.0)
[2023-04-29] MEDS: HYDROmorphone HCl 2 MG/ML VIAL 1.5 MG IVPUSH (22:37)
[2023-04-30] MEDS: oxyCODONE HCl Immed Release 5 MG TABLET PO ×3 (00:03→18:53)
[2023-04-30] MEDS: HYDROmorphone HCl 2 MG/ML VIAL 1.5 MG IVPUSH ×5 (02:45→20:11)
[2023-04-30] MEDS: Nicotine 14 MG PATCH.TD24 TRANSDERMA (03:12)
[2023-04-30 03:51] VITALS: BP 101/56; PULSE 83; RESP 16; TEMP 37.2; O2SAT 97
[2023-04-30] MEDS: Omeprazole 20 MG CAPSULE.DR PO (05:36)
[2023-04-30 06:39] LABS: Alanine Aminotransferase 811 U/L (0-31); Albumin Level 3.8 g/dL (3.5-5.0); Alkaline Phosphatase 442 U/L (39-117); Aspartate Amino Transferase 487 U/L (5-31); Bilirubin Direct 2.6 mg/dL (0.0-0.5); Bilirubin Total 3.6 mg/dL (0.0-1.0); Lipase 174 U/L (8-78)
[2023-04-30 07:25] VITALS: BP 121/71; PULSE 89; RESP 16; TEMP 37.2; O2SAT 96
[2023-04-30 08:05] VITALS: RESP 18
[2023-04-30] MEDS: 0.9 % Sodium Chloride Flush 3 ML SYRINGE IVFLUSH ×2 (08:05→16:14)
--- NOTE | 2023-04-30 08:52 | P.PNIM_ITS ---
Subjective Subjective Date of Service: 04/30/23 Interval History: Pt is still c/o signficnat pain and getting dilaudid around the clock Physical Exam 2 Vital Signs: Vital Signs: Last Vital Signs Temp 99.0 F 04/30/23 07:25 Pulse 89 04/30/23 07:25 Resp 18 04/30/23 08:05 BP 121/71 04/30/23 07:25 Pulse Ox 96 04/30/23 07:25 O2 Del Method Room Air 04/30/23 07:25 O2 Flow Rate 3 04/28/23 20:00 BMI result Body Mass Index 32.9 General: AO X 3, no acute distress Resp: CTA bilateral CVS: S1,S2,RRR GI: +BS, mod epig tenderness, no distention Skin: No rash Neuro: motor grossly intact Psych: appropriate affect Psych: Appearance: grossly normal Objective Data Active Medications Acetaminophen (Acetaminophen 325 Mg Tablet) 650 mg PO Q6H PRN PRN Reason: Pain, Mild (Pain Scale 1-3) Hydromorphone HCl (Hydromorphone Hcl 2 Mg/Ml Vial) 1.5 mg IVPUSH Q4H PRN; Protocol PRN Reason: Pain, Severe (Pain Scale 7-10) Last Admin: 04/30/23 08:05 Dose: 1.5 mg Documented By: BRYANNA Melatonin (Melatonin 3 Mg Tablet) 6 mg PO BEDTIME PRN PRN Reason: Insomnia Nicotine (Nicotine 14 Mg Patch.Td24) 14 mg TRANSDERMA DAILY [facility] Last Admin: 04/30/23 03:12 Dose: 14 mg Documented By: KYLE Nicotine Polacrilex (Nicotine Polacrilex 2 Mg Gum) 2 mg BUCCAL Q2H PRN PRN Reason: Nicotine Cravings Omeprazole (Omeprazole 20 Mg Capsule.Dr) 20 mg PO DAILY@0630 [facility] Last Admin: 04/30/23 05:36 Dose: 20 mg Documented By: KYLE Ondansetron HCl (Ondansetron Hcl 4 Mg/2 Ml Vial) 4 mg IVPUSH Q8H PRN PRN Reason: Nausea and Vomiting Last Admin: 04/28/23 02:55 Dose: 4 mg Documented By: MARY Oxycodone HCl (Oxycodone Hcl Immed Release 5 Mg Tablet) 5 mg PO Q4H PRN PRN Reason: Pain, Severe (Pain Scale 7-10) Last Admin: 04/30/23 05:41 Dose: 5 mg Documented By: KYLE Sodium Chloride (0.9 % Sodium Chloride Flush 3 Ml Syringe) 3 ml IVFLUSH QSHIFT [facility] Last Admin: 04/30/23 08:05 Dose: 3 ml Documented By: BRYANNA Labs 04/27/23 05:28 04/27/23 05:28 Labs: Laboratory Results - last 24 hr 04/29/23 04/29/23 04/30/23 10:40 15:01 05:48 Hold Purple Top SEE NOTE Total Bilirubin 4.6 H 3.6 H Direct Bilirubin 3.4 H 2.6 H AST 406 H 487 H ALT 692 H 811 H Alkaline Phosphatase 419 H 442 H Total Protein 6.6 7.0 Albumin 3.6 3.8 Lipase 409 H 174 H Hold Yellow Top See Note Urine Opiates Screen POSITIVE H Urine Fentanyl Screen Not Detected Ur Barbiturates Screen Not Detected Ur Phencyclidine Scrn Not Detected Ur Amphetamines Screen Not Detected U Benzodiazepines Scrn POSITIVE H Urine Cocaine Screen Not Detected U Marijuana (THC) Screen Not Detected Assessment and Plan (1) Choledocholithiasis: Status: Acute Plan A 28-year-old woman, with a relevant history of tobacco use disorder, presented to the emergency department with abdominal discomfort. During evaluation, elevated liver function tests (LFTs), common bile duct (CBD) dilatation, and a 6 mm CBD stone are identified on MRCP. Her clinical presentation aligns with Choledocholithiasis. Plan: She had ERCP stone extraction and pancreatic stent placement on 04/[address] Betts, she is still complaining of pain. Post ERCP recommendation as follow: 1. NPO except ice chips for next 4-6 hrs then clears as tolerated, can advance diet tomorrow if feels well 2. KUB in 48 hrs to make sure Pd stent falls out, otherwise will need to be removed endoscopically. as of 04/30 still has pain, lipase trending down, AK Phos trending up, LFTs trending down Awaiting KUB as above and will discuss further care with Dr. Betts #. Tobacco use disorder: Counseled regarding cessation. Refused nicotine patch DVT prophylaxis: None. Patient is ambulatory Full code Time Spent With Patient Time: Total time managing care of this patient today ____ minutes. Quality Stroke Does the patient have a stroke diagnosis?: No VTE Prior VTE?: No VTE Risk Level:: Medical - low VTE Device Contraindication: Treatment Not Indicated VTE Drug Contraindication: Treatment Not Indicated
[2023-04-30 15:28] VITALS: BP 126/65; PULSE 93; RESP 18; TEMP 36.7; O2SAT 99
[2023-04-30 16:13] VITALS: RESP 20
[2023-04-30] MEDS: Acetaminophen 325 MG TABLET 650 MG PO (18:53)
[2023-04-30 19:34] VITALS: BP 110/58; PULSE 88; RESP 14; TEMP 36.6; O2SAT 95
[2023-05-01] VITALS (7 sets, daily range): BP systolic 108–121; BP diastolic 58–66; PULSE 73–80; RESP 14–20; TEMP 36.1–36.5; O2SAT 96–98
[2023-05-01] MEDS: HYDROmorphone HCl 2 MG/ML VIAL 1.5 MG IVPUSH ×6 (00:26→23:02)
[2023-05-01] MEDS: 0.9 % Sodium Chloride Flush 3 ML SYRINGE IVFLUSH ×3 (00:31→16:52)
[2023-05-01] MEDS: Acetaminophen 325 MG TABLET 650 MG PO ×2 (03:07→09:06)
[2023-05-01] MEDS: oxyCODONE HCl Immed Release 5 MG TABLET PO ×2 (03:08→09:06)
[2023-05-01] MEDS: Omeprazole 20 MG CAPSULE.DR PO (06:12)
[2023-05-01 08:37] LABS: Alanine Aminotransferase 661 U/L (0-31); Albumin Level 3.3 g/dL (3.5-5.0); Alkaline Phosphatase 378 U/L (39-117); Aspartate Amino Transferase 323 U/L (5-31); Bilirubin Direct 1.6 mg/dL (0.0-0.5); Bilirubin Total 2.2 mg/dL (0.0-1.0); Lipase 16 U/L (8-78); Total Protein 6.2 g/dL (6.5-8.0)
--- NOTE | 2023-05-01 08:58 | P.PNIM_ITS ---
Subjective Subjective Date of Service: 05/01/23 Interval History: Pain is signficantly better, LFTS trending down, lipase normal Physical Exam 2 Vital Signs: Vital Signs: Last Vital Signs Temp 97.4 F 05/01/23 07:19 Pulse 73 05/01/23 07:19 Resp 18 05/01/23 07:19 BP 121/61 05/01/23 07:19 Pulse Ox 96 05/01/23 07:19 O2 Del Method Room Air 05/01/23 07:19 O2 Flow Rate 3 04/28/23 20:00 BMI result Body Mass Index 32.9 Const: Other: General: AO X 3, no acute distress Resp: CTA bilateral CVS: S1,S2,RRR GI: +BS, ND, mild epig tenderness Skin: No rash Neuro: motor grossly intact Psych: appropriate affect Objective Data Active Medications Acetaminophen (Acetaminophen 325 Mg Tablet) 650 mg PO Q6H PRN PRN Reason: Pain, Mild (Pain Scale 1-3) Last Admin: 05/01/23 03:07 Dose: 650 mg Documented By: KYLE Hydromorphone HCl (Hydromorphone Hcl 2 Mg/Ml Vial) 1.5 mg IVPUSH Q4H PRN; Protocol PRN Reason: Pain, Severe (Pain Scale 7-10) Last Admin: 05/01/23 06:09 Dose: 1.5 mg Documented By: KYLE Melatonin (Melatonin 3 Mg Tablet) 6 mg PO BEDTIME PRN PRN Reason: Insomnia Nicotine (Nicotine 14 Mg Patch.Td24) 14 mg TRANSDERMA DAILY [facility] Last Admin: 04/30/23 03:12 Dose: 14 mg Documented By: KYLE Nicotine Polacrilex (Nicotine Polacrilex 2 Mg Gum) 2 mg BUCCAL Q2H PRN PRN Reason: Nicotine Cravings Omeprazole (Omeprazole 20 Mg Capsule.Dr) 20 mg PO DAILY@0630 [facility] Last Admin: 05/01/23 06:12 Dose: 20 mg Documented By: KYLE Ondansetron HCl (Ondansetron Hcl 4 Mg/2 Ml Vial) 4 mg IVPUSH Q8H PRN PRN Reason: Nausea and Vomiting Last Admin: 04/28/23 02:55 Dose: 4 mg Documented By: MARY Oxycodone HCl (Oxycodone Hcl Immed Release 5 Mg Tablet) 5 mg PO Q4H PRN PRN Reason: Pain, Severe (Pain Scale 7-10) Last Admin: 05/01/23 03:08 Dose: 5 mg Documented By: KYLE Sodium Chloride (0.9 % Sodium Chloride Flush 3 Ml Syringe) 3 ml IVFLUSH QSHIFT [facility] Last Admin: 05/01/23 00:31 Dose: 3 ml Documented By: KYLE Labs 04/27/23 05:28 04/27/23 05:28 Labs: Laboratory Results - last 24 hr 05/01/23 08:02 Total Bilirubin 2.2 H Direct Bilirubin 1.6 H AST 323 H ALT 661 H Alkaline Phosphatase 378 H Total Protein 6.2 L Albumin 3.3 L Lipase 16 Assessment and Plan (1) Choledocholithiasis: Status: Acute Plan A 28-year-old woman, with a relevant history of tobacco use disorder, h/o Cholecystectomy presented to the emergency department with abdominal pain. Work up show elevated liver function tests (LFTs), common bile duct (CBD) dilatation, and a 6 mm CBD stone are identified on MRCP. Her clinical presentation aligns with Choledocholithiasis. Plan: She had ERCP with stone extraction and pancreatic duct stent placement on 04/[address] Betts. She developped Post ERCP pancreatitis the next day with lipase going up from 11 to 409 and peristent Pain. Lipase today 05/01 is 16, pain is better. LFTS are trending down -Advance diet as lian to low residue -follow up KUB to ensure stent has fallen out #. Tobacco use disorder: Counseled regarding cessation. Refused nicotine patch DVT prophylaxis: None. Patient is ambulatory Full code Time Spent With Patient Time: Total time managing care of this patient today ____ minutes. Quality Stroke Does the patient have a stroke diagnosis?: No VTE Prior VTE?: No VTE Risk Level:: Medical - low VTE Device Contraindication: Treatment Not Indicated VTE Drug Contraindication: Treatment Not Indicated
[2023-05-01] MEDS: Nicotine 14 MG PATCH.TD24 TRANSDERMA (09:07)
[2023-05-01] MEDS: Dicyclomine HCl 10 MG CAPSULE PO (20:14)
[2023-05-02] VITALS (7 sets, daily range): BP systolic 105–129; BP diastolic 54–70; PULSE 66–88; RESP 12–18; TEMP 36.2–37.3; O2SAT 96–99
[2023-05-02] MEDS: 0.9 % Sodium Chloride Flush 3 ML SYRINGE IVFLUSH ×3 (00:56→14:26)
[2023-05-02] MEDS: HYDROmorphone HCl 2 MG/ML VIAL 1.5 MG IVPUSH ×5 (02:44→23:14)
[2023-05-02] MEDS: Omeprazole 20 MG CAPSULE.DR PO (05:51)
[2023-05-02 06:43] LABS: Alanine Aminotransferase 580 U/L (0-31); Albumin Level 3.6 g/dL (3.5-5.0); Alkaline Phosphatase 427 U/L (39-117); Aspartate Amino Transferase 191 U/L (5-31); Bilirubin Direct 1.1 mg/dL (0.0-0.5); Bilirubin Total 1.6 mg/dL (0.0-1.0); Total Protein 7.1 g/dL (6.5-8.0)
[2023-05-02 08:47] LABS: Lipase 11 U/L (8-78)
[2023-05-02] MEDS: Nicotine 14 MG PATCH.TD24 TRANSDERMA (11:09)
[2023-05-02] MEDS: oxyCODONE HCl Immed Release 5 MG TABLET PO ×3 (11:10→22:12)
--- NOTE | 2023-05-02 12:13 | P.PNIM_ITS ---
Subjective Subjective Date of Service: 05/03/23 Interval History: f/u on pancreatitis, still with pain Physical Exam 2 Vital Signs: Vital Signs: Last Vital Signs Temp 99.2 F 05/02/23 12:08 Pulse 88 05/02/23 12:08 Resp 16 05/02/23 12:08 BP 120/70 05/02/23 12:08 Pulse Ox 98 05/02/23 12:08 O2 Del Method Room Air 05/02/23 12:08 O2 Flow Rate 3 04/28/23 20:00 BMI result Body Mass Index 32.9 Const: Other: GENERAL: The patient is well developed and nontoxic. VITAL SIGNS:see workflow HEENT: Nonicteric sclerae, PERRLA, EOMI. Oropharynx clear. Moist mucous membranes. Conjunctivae appear well perfused. No thyroid mass. CHEST: Chest wall is nontender. HEART: Regular rate and rhythm without murmurs. LUNGS: Clear to auscultation bilaterally. ABDOMEN: Soft, positive bowel sounds, mildly tender epigastric area, no organomegaly.no flank tenderness SKIN: No rash, no excessive bruising, petechiae, or purpura. NEUROLOGIC: Cranial nerves II-XII intact without motor/s Objective Data Active Medications Acetaminophen (Acetaminophen 325 Mg Tablet) 650 mg PO Q6H PRN PRN Reason: Pain, Mild (Pain Scale 1-3) Last Admin: 05/01/23 09:06 Dose: 650 mg Documented By: BRYANNA Hydromorphone HCl (Hydromorphone Hcl 2 Mg/Ml Vial) 1.5 mg IVPUSH Q4H PRN; Protocol PRN Reason: Pain, Severe (Pain Scale 7-10) Last Admin: 05/02/23 06:37 Dose: 1.5 mg Documented By: DAV Melatonin (Melatonin 3 Mg Tablet) 6 mg PO BEDTIME PRN PRN Reason: Insomnia Nicotine (Nicotine 14 Mg Patch.Td24) 14 mg TRANSDERMA DAILY [facility] Last Admin: 05/02/23 11:09 Dose: 14 mg Documented By: PAT Nicotine Polacrilex (Nicotine Polacrilex 2 Mg Gum) 2 mg BUCCAL Q2H PRN PRN Reason: Nicotine Cravings Omeprazole (Omeprazole 20 Mg Capsule.) 20 mg PO DAILY@0630 [facility] Last Admin: 05/02/23 05:51 Dose: 20 mg Documented By: DAV Ondansetron HCl (Ondansetron Hcl 4 Mg/2 Ml Vial) 4 mg IVPUSH Q8H PRN PRN Reason: Nausea and Vomiting Last Admin: 04/28/23 02:55 Dose: 4 mg Documented By: MARY Oxycodone HCl (Oxycodone Hcl Immed Release 5 Mg Tablet) 5 mg PO Q4H PRN PRN Reason: Pain, Severe (Pain Scale 7-10) Last Admin: 05/02/23 11:10 Dose: 5 mg Documented By: PAT Sodium Chloride (0.9 % Sodium Chloride Flush 3 Ml Syringe) 3 ml IVFLUSH QSHIFT [facility] Last Admin: 05/02/23 11:10 Dose: 3 ml Documented By: PAT Labs 04/27/23 05:28 04/27/23 05:28 Labs: Laboratory Results - last 24 hr 05/02/23 05/02/23 05:58 06:10 Hold Purple Top SEE NOTE Total Bilirubin 1.6 H Direct Bilirubin 1.1 H AST 191 H ALT 580 H Alkaline Phosphatase 427 H Total Protein 7.1 Albumin 3.6 Lipase 11 Microbiology Microbiology Results: Microbiology 04/27/23 02:22 Blood Culture - Final Blood - Venous No growth after 5 days. 04/27/23 02:22 Blood Culture - Final Blood - Venous No growth after 5 days. Assessment and Plan (1) Choledocholithiasis: Status: Acute Plan A 28-year-old woman, with a relevant history of tobacco use disorder, h/o Cholecystectomy presented to the emergency department with abdominal pain. Work up show elevated liver function tests (LFTs), common bile duct (CBD) dilatation, and a 6 mm CBD stone are identified on MRCP. Her clinical presentation aligns with Choledocholithiasis. Plan: She had ERCP with stone extraction and pancreatic duct stent placement on 04/[address] Betts. She developped Post ERCP pancreatitis the next day with lipase going up from 11 to 409 and peristent Pain. Lipase today 05/02 is 11, LFTS still trending down, she is -Advance diet as lian to low residue -EGD today to remove stent #. Tobacco use disorder: Counseled regarding cessation. Refused nicotine patch DVT prophylaxis: None. Patient is ambulatory Full code Time Spent With Patient Time: Total time managing care of this patient today ____ minutes. Quality Stroke Does the patient have a stroke diagnosis?: No VTE Prior VTE?: No VTE Risk Level:: Medical - low VTE Device Contraindication: Treatment Not Indicated VTE Drug Contraindication: Treatment Not Indicated
--- NOTE | 2023-05-02 12:44 | MHC.SHP ---
Pre-Procedural Eval Section A Date of Service: 05/02/23 The patient is an INPATIENT: Yes The History & Physical has been completed within 30 days and I have reviewed it.: Yes Section B Chief Complaint: Abdominal pain Allergies: Allergies Allergy/AdvReac Type Severity Reaction Status Date / Time No Known Allergies Allergy Verified 05/02/23 12:03 Plan I have reviewed the history and physical and performed a pertinent physical examination on my patient. No changes have occurred unless specified. Post ERCP pancreatitis, resolving, for removal of pancreatic stent Time Spent With Patient Time: Total time managing care of this patient today ____ minutes.
--- NOTE | 2023-05-02 12:45 | P.PNGI_ITS ---
Subjective Subjective Date of Service: 05/02/23 Interval History: Patient developed post ercp pancreatitis with abdominal pain and nausea managing soup passing gas LFT coming down and so is lipase Critical Care Time (minutes): 0 Physical Exam 2 Vital Signs: Vital Signs: Last Vital Signs Temp 99.2 F 05/02/23 12:08 Pulse 88 05/02/23 12:08 Resp 16 05/02/23 12:08 BP 120/70 05/02/23 12:08 Pulse Ox 98 05/02/23 12:08 O2 Del Method Room Air 05/02/23 12:08 O2 Flow Rate 3 04/28/23 20:00 BMI result Body Mass Index 32.9 EXAM: GENERAL: The patient is well developed and nontoxic. VITAL SIGNS:see workflow HEENT: Nonicteric sclerae, PERRLA, EOMI. Oropharynx clear. Moist mucous membranes. Conjunctivae appear well perfused. No thyroid mass. CHEST: Chest wall is nontender. HEART: Regular rate and rhythm without murmurs. LUNGS: Clear to auscultation bilaterally. ABDOMEN: Soft, positive bowel sounds, mildly tender epigastric area, no organomegaly.no flank tenderness SKIN: No rash, no excessive bruising, petechiae, or purpura. NEUROLOGIC: Cranial nerves II-XII intact without motor/sensory deficit. Objective Data Labs 04/27/23 05:28 04/27/23 05:28 Labs: Laboratory Results - last 24 hr 05/02/23 05/02/23 05:58 06:10 Hold Purple Top SEE NOTE Total Bilirubin 1.6 H Direct Bilirubin 1.1 H AST 191 H ALT 580 H Alkaline Phosphatase 427 H Total Protein 7.1 Albumin 3.6 Lipase 11 Microbiology Microbiology Results: Microbiology 04/27/23 02:22 Blood - Venous Blood Culture - Final No growth after 5 days. 04/27/23 02:22 Blood - Venous Blood Culture - Final No growth after 5 days. Procedures Date of Service Date of Service: 05/02/23 Progress Note: A&P Assessment and plan (1) Choledocholithiasis: Status: Acute Plan 1/ Choledocholithiasis with suspected post ERCP pancreatitis, LFT and lipase are improved PLAN: 1/ EGD with stent removal today, advance diet as tolerated Time Spent With Patient Time: Total time managing care of this patient today ____ minutes. Quality Stroke Does the patient have a stroke diagnosis?: No VTE Prior VTE?: No VTE Risk Level:: Medical - low VTE Device Contraindication: Treatment Not Indicated VTE Drug Contraindication: Treatment Not Indicated
--- NOTE | 2023-05-02 13:10 | PC.NURSE ---
#22 left hand PRN angio present on arrival to preop. Area asymptomatic, flushed well.
--- NOTE | 2023-05-02 13:22 | HO.ANESPROP2 ---
HPI - Anesthesia Eval Consult details Narrative: 28 yo F s/p ERCP for stent removal PMFSH Active Problems Active Problems: All Active Problems (Updated 04/29/23 @ 13:18 by Aleksander Betts MD) Jaundice (Acute) Intrahepatic bile duct dilation (Acute) Hyperbilirubinemia (Acute) Choledocholithiasis (Acute) Tobacco use disorder (Acute) S/P cholecystectomy (Acute) Past Medical History Medical History (Updated 04/29/23 @ 13:18 by Aleksander Betts MD) Choledocholithiasis Tobacco use disorder Family History Family history of problems with anesthesia: No Surgical History Surgical History (Updated 05/02/23 @ 12:03 by Laxmi Harper) History of ERCP S/P cholecystectomy History of Problems with Anesthesia: No Social History Social History Household Members: Family Housing: Apartment Patient Tobacco Use Status: Current everyday Tobacco user Tobacco use type: Cigarette Cigarettes Per Day: 7 service: No Meds Allergies Allergy/AdvReac Type Severity Reaction Status Date / Time No Known Allergies Allergy Verified 05/02/23 12:03 Active Medications: Current Medications Acetaminophen (Acetaminophen 325 Mg Tablet) 650 mg PO Q6H PRN PRN Reason: Pain, Mild (Pain Scale 1-3) Last Admin: 05/01/23 09:06 Dose: 650 mg Hydromorphone HCl (Hydromorphone Hcl 2 Mg/Ml Vial) 1.5 mg IVPUSH Q4H PRN; Protocol PRN Reason: Pain, Severe (Pain Scale 7-10) Last Admin: 05/02/23 06:37 Dose: 1.5 mg Melatonin (Melatonin 3 Mg Tablet) 6 mg PO BEDTIME PRN PRN Reason: Insomnia Nicotine (Nicotine 14 Mg Patch.Td24) 14 mg TRANSDERMA DAILY [facility] Last Admin: 05/02/23 11:09 Dose: 14 mg Nicotine Polacrilex (Nicotine Polacrilex 2 Mg Gum) 2 mg BUCCAL Q2H PRN PRN Reason: Nicotine Cravings Omeprazole (Omeprazole 20 Mg Capsule.Dr) 20 mg PO DAILY@0630 [facility] Last Admin: 05/02/23 05:51 Dose: 20 mg Ondansetron HCl (Ondansetron Hcl 4 Mg/2 Ml Vial) 4 mg IVPUSH Q8H PRN PRN Reason: Nausea and Vomiting Last Admin: 04/28/23 02:55 Dose: 4 mg Oxycodone HCl (Oxycodone Hcl Immed Release 5 Mg Tablet) 5 mg PO Q4H PRN PRN Reason: Pain, Severe (Pain Scale 7-10) Last Admin: 05/02/23 11:10 Dose: 5 mg Sodium Chloride (0.9 % Sodium Chloride Flush 3 Ml Syringe) [facility] Last Admin: 05/02/23 11:10 Dose: 3 ml Home Medications Medication Instructions Recorded Confirmed Last Taken Type omeprazole 20 mg capsule,delayed 20 mg PO DAILY 04/27/23 04/27/23 Unknown History release Exam Exam Date and Time: May 02, 2023 1305 Height,Weight and Vital Signs: Height 5 ft 2 in Weight 81.6 kg Last Vital Signs Temp 99.2 F 05/02/23 12:08 Pulse 88 05/02/23 12:08 Resp 16 05/02/23 12:08 BP 120/70 05/02/23 12:08 Pulse Ox 98 05/02/23 12:08 O2 Del Method Room Air 05/02/23 12:08 O2 Flow Rate 3 04/28/23 20:00 Pertinent Lab Results Pertinent Lab Results: Laboratory Tests 04/26/23 04/26/23 04/27/23 19:46 21:19 02:22 WBC 7.6 RBC 4.65 Hgb 13.5 Hct 40.2 MCV 86.5 MCH 29.0 MCHC 33.6 RDW 13.0 Plt Count 332 MPV 9.5 Immature Gran % (Auto) 0.4 Neut % (Auto) 71.6 Lymph % (Auto) 20.8 Sandoval % (Auto) 5.3 Eos % (Auto) 1.5 Baso % (Auto) 0.4 Lymph # (Auto) 1.6 Sandoval # (Auto) 0.4 Eos # (Auto) 0.1 Baso # (Auto) 0.0 Abs Immat Gran (auto) 0.03 Absolute Neuts (auto) 5.4 Absolute Nucleated RBC 0.000 Nucleated RBC % (auto) 0.0 Hold Purple Top Sodium 139 Potassium 4.3 Chloride 105 Carbon Dioxide 25 Anion Gap 13 BUN 15 Creatinine 0.76 Estim Creat Clear Calc 109.1 Estimated GFR > 60 Random Glucose 104 Lactic Acid 0.6 Calcium 9.8 D Magnesium 2.3 Total Bilirubin 5.4 H Direct Bilirubin AST 255 H ALT 662 H Alkaline Phosphatase 365 H Troponin I High Sens < 2.7 Total Protein 7.8 Albumin 4.3 Lipase 11 Beta HCG, Quant < 2 Hold Yellow Top Urine Color Dark Yellow Urine Appearance Clear Urine pH 5.5 Ur Specific Hoyt 1.025 Urine Protein Negative Urine Glucose (UA) Negative Urine Ketones Trace Urine Blood Negative Urine Nitrite Negative Ur Leukocyte Esterase Trace H Urine RBC 3-5 H Urine WBC 0-5 Ur Squamous Epith Cells 6-10 Urine Bacteria Trace Hyaline Casts 0-2 Urine Opiates Screen Urine Fentanyl Screen Ur Barbiturates Screen Ur Phencyclidine Scrn Ur Amphetamines Screen U Benzodiazepines Scrn Urine Cocaine Screen U Marijuana (THC) Screen Hepatitis A IgM Ab Nonreactive Hep Bs Antigen Negative Hep Bs Antibody NONREACTIVE Hep B Core Total Ab Nonreactive Hepatitis C Ab (EIA) Nonreactive 04/27/23 04/28/23 04/29/23 05:28 09:44 10:40 WBC 10.0 RBC 4.12 L Hgb 11.7 L Hct 35.4 L MCV 85.9 MCH 28.4 MCHC 33.1 RDW 13.0 Plt Count 290 MPV 10.3 Immature Gran % (Auto) 0.5 H Neut % (Auto) 72.6 Lymph % (Auto) 18.7 L Sandoval % (Auto) 7.1 Eos % (Auto) 0.8 Baso % (Auto) 0.3 Lymph # (Auto) 1.9 Sandoval # (Auto) 0.7 Eos # (Auto) 0.1 Baso # (Auto) 0.0 Abs Immat Gran (auto) 0.05 H Absolute Neuts (auto) 7.3 Absolute Nucleated RBC 0.000 Nucleated RBC % (auto) 0.0 Hold Purple Top Sodium 138 Potassium 3.8 Chloride 108 Carbon Dioxide 20 L Anion Gap 14 BUN 10 Creatinine 0.64 Estim Creat Clear Calc 129.5 Estimated GFR > 60 Random Glucose 81 Lactic Acid Calcium 8.9 D Magnesium Total Bilirubin 4.6 H 4.9 H Direct Bilirubin 3.8 H 4.1 H AST 231 H 262 H ALT 553 H 565 H Alkaline Phosphatase 325 H 368 H Troponin I High Sens Total Protein 6.8 6.9 Albumin 3.8 3.8 Lipase Beta HCG, Quant Hold Yellow Top Urine Color Urine Appearance Urine pH Ur Specific Hoyt Urine Protein Urine Glucose (UA) Urine Ketones Urine Blood Urine Nitrite Ur Leukocyte Esterase Urine RBC Urine WBC Ur Squamous Epith Cells Urine Bacteria Hyaline Casts Urine Opiates Screen POSITIVE H Urine Fentanyl Screen Not Detected Ur Barbiturates Screen Not Detected Ur Phencyclidine Scrn Not Detected Ur Amphetamines Screen Not Detected U Benzodiazepines Scrn POSITIVE H Urine Cocaine Screen Not Detected U Marijuana (THC) Screen Not Detected Hepatitis A IgM Ab Hep Bs Antigen Hep Bs Antibody Hep B Core Total Ab Hepatitis C Ab (EIA) 04/29/23 04/30/23 05/01/23 15:01 05:48 08:02 WBC RBC Hgb Hct MCV MCH MCHC RDW Plt Count MPV Immature Gran % (Auto) Neut % (Auto) Lymph % (Auto) Sandoval % (Auto) Eos % (Auto) Baso % (Auto) Lymph # (Auto) Sandoval # (Auto) Eos # (Auto) Baso # (Auto) Abs Immat Gran (auto) Absolute Neuts (auto) Absolute Nucleated RBC Nucleated RBC % (auto) Hold Purple Top SEE NOTE Sodium Potassium Chloride Carbon Dioxide Anion Gap BUN Creatinine Estim Creat Clear Calc Estimated GFR Random Glucose Lactic Acid Calcium Magnesium Total Bilirubin 4.6 H 3.6 H 2.2 H Direct Bilirubin 3.4 H 2.6 H 1.6 H AST 406 H 487 H 323 H ALT 692 H 811 H 661 H Alkaline Phosphatase 419 H 442 H 378 H Troponin I High Sens Total Protein 6.6 7.0 6.2 L Albumin 3.6 3.8 3.3 L Lipase 409 H 174 H 16 Beta HCG, Quant Hold Yellow Top See Note Urine Color Urine Appearance Urine pH Ur Specific Hoyt Urine Protein Urine Glucose (UA) Urine Ketones Urine Blood Urine Nitrite Ur Leukocyte Esterase Urine RBC Urine WBC Ur Squamous Epith Cells Urine Bacteria Hyaline Casts Urine Opiates Screen Urine Fentanyl Screen Ur Barbiturates Screen Ur Phencyclidine Scrn Ur Amphetamines Screen U Benzodiazepines Scrn Urine Cocaine Screen U Marijuana (THC) Screen Hepatitis A IgM Ab Hep Bs Antigen Hep Bs Antibody Hep B Core Total Ab Hepatitis C Ab (EIA) 05/02/23 05/02/23 05:58 06:10 WBC RBC Hgb Hct MCV MCH MCHC RDW Plt Count MPV Immature Gran % (Auto) Neut % (Auto) Lymph % (Auto) Sandoval % (Auto) Eos % (Auto) Baso % (Auto) Lymph # (Auto) Sandoval # (Auto) Eos # (Auto) Baso # (Auto) Abs Immat Gran (auto) Absolute Neuts (auto) Absolute Nucleated RBC Nucleated RBC % (auto) Hold Purple Top SEE NOTE Sodium Potassium Chloride Carbon Dioxide Anion Gap BUN Creatinine Estim Creat Clear Calc Estimated GFR Random Glucose Lactic Acid Calcium Magnesium Total Bilirubin 1.6 H Direct Bilirubin 1.1 H AST 191 H ALT 580 H Alkaline Phosphatase 427 H Troponin I High Sens Total Protein 7.1 Albumin 3.6 Lipase 11 Beta HCG, Quant Hold Yellow Top Urine Color Urine Appearance Urine pH Ur Specific Hoyt Urine Protein Urine Glucose (UA) Urine Ketones Urine Blood Urine Nitrite Ur Leukocyte Esterase Urine RBC Urine WBC Ur Squamous Epith Cells Urine Bacteria Hyaline Casts Urine Opiates Screen Urine Fentanyl Screen Ur Barbiturates Screen Ur Phencyclidine Scrn Ur Amphetamines Screen U Benzodiazepines Scrn Urine Cocaine Screen U Marijuana (THC) Screen Hepatitis A IgM Ab Hep Bs Antigen Hep Bs Antibody Hep B Core Total Ab Hepatitis C Ab (EIA) Airway Mallampati Class: I TM Dist: >3cm Neck ROM: Full Loose/Missing/Broken Teeth: No Heart: S1S2 Lungs: CTAB Assessment and Plan Assessment Anesthesia Assessment: Anesthesia Plan Discussed and Chart Reviewed Final Anesthetic Review Family History of Problems with Anesthesia: No History of Problems with Anesthesia: No NPO: Yes ASA Class: II Final Preanesthetic Review: No Changes in Pt Med Stat, Meds/Allgs Chart Reviewed, Consent Obtained/Reviewed and Anes Risks/Benef Reviewed Patient Risk: Low Procedure Risk: Low Anesthetic Plan Anesthetic Plan: MAC: and Agree w/ Assess. and Plan Disposition: Standard PACU
--- NOTE | 2023-05-02 13:28 | W.PM.OPN ---
Operative Note Operative Note Date of Service: 05/02/23 Narrative: Procedure Description: EGD Indication: stent removal Anesthesia: MAC FLEXIBLE TRANSORAL UPPER GASTROINTESTINAL ENDOSCOPY UPPER ENDOSCOPY Consent: Indications for the procedure and potential complications of bleeding, perforation, reaction to medications and missed diagnosis were discussed with the patient and informed consent was obtained. Instrument: Olympus GIF H 190 J mid size upper endoscope Monitoring: Vital signs and clinical assessment, continuous EKG monitoring, Pulse oximetry, Carbon Dioxide monitoring and blood pressure monitoring were done throughout the procedure. Procedure: The patient was placed in the left lateral decubitis position and pre-procedure medications were administered and a bite block was placed. The endoscope was inserted into the mouth and advanced under direct vision to the third part of duodenum. A careful inspection was made as the upper endoscope was withdrawn including a retroflexed examination of the proximal stomach; Findings and interventions are described below. Findings: Larynx:normal Esophagus: GE junction at 35 cm, diaphragm hiatus at 35 cm, no varices or esophagitis. Stomach: Patchy gastric erythema consistent with gastritis. Biopsies were obtained. Grade 2 flap valve on retroflexed examination of the cardia. Duodenum: Normal bulb and descending duodenum, bile was noted in the duodenum, the stent was seen and removed with snare Intervention: Biopsies as noted above, stent removal Impression/Findings: pancreatic stent removal gastritis normal bile flow PLAN: can advance diet as tolerated can increase dose of PPI May have h pylori, if pos can treat
--- NOTE | 2023-05-02 14:02 | MHC.CM.PN ---
EMR REVIEWED AND PER MD ROUNDS, DOWN FOR EGD AND STENT REMOVAL TODAY. CM WILL CONTINUE TO FOLLOW FOR DC PLAN.
[2023-05-02] MEDS: Sucralfate Oral Suspension 1 GM/10 ML ORAL.SUSP PO ×2 (16:15→22:11)
[2023-05-03] VITALS: BP 118/71; PULSE 74; RESP 16; TEMP 36.2; O2SAT 98
[2023-05-03] MEDS: HYDROmorphone HCl 2 MG/ML VIAL 1.5 MG IVPUSH (03:26)
[2023-05-03] MEDS: oxyCODONE HCl Immed Release 5 MG TABLET PO ×2 (06:20→10:27)
[2023-05-03] MEDS: Omeprazole 20 MG CAPSULE.DR PO (06:20)
[2023-05-03 07:32] VITALS: BP 112/62; PULSE 78; RESP 18; TEMP 37.4; O2SAT 97
[2023-05-03 08:56] LABS: Alanine Aminotransferase 405 U/L (0-31); Albumin Level 3.4 g/dL (3.5-5.0); Alkaline Phosphatase 344 U/L (39-117); Aspartate Amino Transferase 93 U/L (5-31); Bilirubin Direct 0.9 mg/dL (0.0-0.5); Bilirubin Total 1.3 mg/dL (0.0-1.0); Lipase 10 U/L (8-78); Total Protein 6.5 g/dL (6.5-8.0)
[2023-05-03] MEDS: Sucralfate Oral Suspension 1 GM/10 ML ORAL.SUSP PO (08:59)
[2023-05-03] MEDS: 0.9 % Sodium Chloride Flush 3 ML SYRINGE IVFLUSH (08:59)
[2023-05-03] MEDS: Nicotine 14 MG PATCH.TD24 TRANSDERMA (08:59)
[2023-05-03] MEDS: Acetaminophen 325 MG TABLET 650 MG PO (10:27)
--- NOTE | 2023-05-03 10:39 | PM.DS ---
DS: Providers Provider Date of Service: 05/03/23 Date of admission: 04/27/23 01:57 Primary care physician: None Physician Consults: 04/27/23 01:59 Consult to Gastroenterology Routine Consulting Provider: Ada Chase Reason for consultation: elevated lfts 04/28/23 10:31 Consult to General Surgery Routine Consulting Provider[place] [facility] [place] [facility] Reason for consultation: Choledocholithiasis DS: Diagnosis Discharge Diagnosis (1) Choledocholithiasis: Status: Acute DS: Summary Hospital Course Hospital Course: Admission HPI Chief Complaint: Abdominal Pain This is a 28-year-old female with pertinent history of tobacco use disorder who presents to the emergency department for evaluation of abdominal discomfort. Patient states that epigastric pain started 3 days prior to presentation. It is constant, progressive and without any relieving factors. Also has associated nausea and nonbloody emesis. Does endorse chills. No diarrhea or fever. Patient had a cholecystectomy in 2020. Patient is with decreased p.o. intake due to nausea and pain. Patient denies chest discomfort, palpitations, shortness of breath, changes in urinary or bowel habits. In the emergency department, imaging with possible mild intra hepatic biliary ductal dilatation. GI was consulted who requested admission Hospital course: This patient has a history of a prior cholecystectomy in 2020 and presented with abdominal pain, elevated liver function tests (LFTs), consistent with clinical symptoms of choledocholithiasis. An abdominal MRI confirmed the presence of a common bile duct (CBD) stone, leading to the performance of an endoscopic retrograde cholangiopancreatography (ERCP) to remove the stone and place a stent by Dr. Betts Unfortunately, she developed post-ERCP pancreatitis, with her lipase levels spiking from 11 to 409 the next day and eventually returning to normal levels, currently at 10. Despite the improvement, the patient continues to experience pain. An esophagogastroduodenoscopy (EGD) was performed to remove the pancreatitis stent, during which gastritis was identified. As a result, she is now advised to take carafate and a proton pump inhibitor (PPI). Although her LFTs were elevated, tests for hepatitis B and C came back negative, and the LFT levels are currently showing a decreasing trend, possibly indicating some degree of fatty liver disease. The patient should maintain regular follow-up appointments with the marzipan molder for ongoing resolution of her condition. Time Spent with Patient Time attestation: Total time managing care of this patient today ____ minutes. Discharge coordination time: Greater than 30 minutes Quality: Safe Use of Opioids Does Pt have an Active Cancer Diagnosis on the Problem List?: No Quality: Stroke Does the patient have a stroke diagnosis?: No Physical Exam Vital Signs: Vital Signs: Last Vital Signs Temp 99.3 F 05/03/23 07:32 Pulse 78 05/03/23 07:32 Resp 18 05/03/23 07:32 BP 112/62 05/03/23 07:32 Pulse Ox 97 05/03/23 07:32 O2 Del Method Room Air 05/03/23 07:32 O2 Flow Rate 3 04/28/23 20:00 BMI result Body Mass Index 32.9 DS: Data Data Completed and Pending Pending studies at discharge: Pending at discharge 05/02/23 13:37 Surgical [PTH] Routine Labs on day of discharge: Laboratory Results - last 24 hr 05/03/23 08:17 Hold Purple Top SEE NOTE Total Bilirubin 1.3 H Direct Bilirubin 0.9 H AST 93 H ALT 405 H Alkaline Phosphatase 344 H Total Protein 6.5 Albumin 3.4 L Lipase 10 Discharge Plan Discharge Anticipated Discharge Date/Time: 05/03/23 10:52 Patient Disposition: Home, Self-Care Discharge Diagnosis: Choledocholithiasis, Pancreatitis, Gastritis Referrals: Physician,None [Primary Care Provider] - 1 Week Discharge Medications: New oxycodone 5 mg Tablet 5 mg PO Q4H PRN (Reason: Pain, Severe (Pain Scale 7-10)) Qty: 14 0RF Rx Instructions: Partial Fill upon patient request. sucralfate 100 mg/mL Suspension 1 g PO BID Qty: 60 0RF Continued omeprazole 20 mg capsule,delayed release(DR/EC) 20 mg PO DAILY Discharge Orders: Discharge Order (Routine); Ordered 05/03/23 Ordered By: Cruz Saucedo Diet: Advance to usual diet Activity on Discharge: As tolerated Stand Alone Forms: Patient Portal Discharge page Care Plan Goals: Full recovery from pancreatitis, choledocholithias and gastritis Health Concerns: Gastritis elevated liver enzyme Plan of Treatment: Take Carafate and Priolosec as recommended and follow up with your Doctor in a week, you may also follow up with Dr. Betts in 2 weeks Assessment: as above
--- NOTE | 2023-05-03 12:03 | MHC.CM.PN ---
Pt has been medically cleared for DC, family to transport, self care.
--- NOTE | 2023-05-03 14:45 | HO.POSTANES ---
Post Anesthesia Evaluation Post Anesthesia Evaluation Date of Service: 05/03/23 Vital Signs: Vital Signs Temp Pulse Resp BP Pulse Ox O2 Del Method 05/03/23 07:32 99.3 F 78 18 112/62 97 Room Air Anesthesia: Monitored Mental Status: Awake Pain Control: Satisfactory Nausea/Vomiting: None Hydration: Adequate Anesthesia-Related Issues: No Anes. Related Issues
== END 2023-05-03 12:46 | disposition home or self-care (01) | DRG 261 ==
LOC: HO.ED 04-27 02:01 → HO.EDOVER 04-27 05:03 → HO.IMC 04-27 18:14 → HO.S3 04-29 17:26
PROVIDERS: Internal Medicine; Internal Medicine Gastroenterology; Physician Assistant; Physician Assistant Medical; Admitting Provider Student in an Organized Health Care Education/Training Program; Emergency Provider Internal Medicine; Visit Provider Internal Medicine
PROC: 0FC98ZZ Extirpation of Matter from Common Bile Duct, Via Natural or Artificial Opening Endoscopic (ICD-10-PCS; CPT 43260; principal; 2023-04-28 13:00)
PROC: 0DJ08ZZ Inspection of Upper Intestinal Tract, Via Natural or Artificial Opening Endoscopic (ICD-10-PCS; CPT 43235; principal; 2023-05-02 12:30)
DX: K80.50 Calculus of bile duct without cholangitis or cholecystitis without obstruction (principal); K85.80 Other acute pancreatitis without necrosis or infection; K76.0 Fatty (change of) liver, not elsewhere classified; K91.89 Other postprocedural complications and disorders of digestive system; F17.210 Nicotine dependence, cigarettes, uncomplicated; Z71.6 Tobacco abuse counseling; Z79.899 Other long term (current) drug therapy
CPT/HCPCS: 36415; 74018; 74176; 74177; 74181; 76705; 80048; 80053; 80076; 80307; 81001; 83605; 83690; 83735; 84484; 84702; 85025; 86704; 86706; 86709; 86803; 87040; 87340; 88305; 88342; 93005; 99285; C1726; C1769; C2617; J0690; J1100; J1170; J1610; J2060; J2250; J2270; J2405; J3010; Q9967

== ENCOUNTER → 2023-04-27 01:57 | Outpatient (BNV) | payer MEDICAID, SELFPAY | PROVIDERS: Admitting Provider Student in an Organized Health Care Education/Training Program; Emergency Provider Internal Medicine; Visit Provider Student in an Organized Health Care Education/Training Program | DX: K80.50 Calculus of bile duct without cholangitis or cholecystitis without obstruction (principal) | CPT/HCPCS: 99222; 99232; 99239; 99499 ==

== ENCOUNTER → 2023-04-27 01:57 | Outpatient (BNV) | payer MEDICAID, SELFPAY | PROVIDERS: Admitting Provider Student in an Organized Health Care Education/Training Program; Emergency Provider Internal Medicine; Visit Provider Internal Medicine | DX: K83.8 Other specified diseases of biliary tract (principal); E80.6 Other disorders of bilirubin metabolism; Z90.49 Acquired absence of other specified parts of digestive tract; R74.01 Elevation of levels of liver transaminase levels | CPT/HCPCS: 43239; 43247; 99232 ==

== ENCOUNTER 2024-03-12 02:20 | Emergency (ER) | payer SELFPAY ==
--- NOTE | ~2024-03-12 | US_ITS ---
EXAMINATION: US PELVIS CLINICAL INFORMATION: Pelvic pain. COMPARISON: None available. TECHNIQUE: Ultrasound of the pelvis is performed using both transabdominal and transvaginal transducers along with Doppler. Transvaginal imaging is performed due to inadequate visualization transabdominally. FINDINGS: Uterus: The uterus is anteverted and measures 7.6 x 2.9 x 4.7 cm. The double wall endometrial thickness is 0.5 mm. The uterus is smooth in contour and has normal myometrial echogenicity. No visible fibroid. Adnexa: Both ovaries are visualized. There is normal color flow to the adnexa. There is no ovarian torsion. There is a small amount of free fluid within the pelvis. Right ovary measures 3.3 x 3.2 x 2.4 cm. Left ovary measures 4.3 x 2.4 x 2.4 cm. US/US pelvic and transvaginal IMPRESSION: The uterus and ovaries are normal in appearance. Small amount of free fluid within the pelvis. Electronically signed by: Ross Holland MD 03/12/2024 05:22 AM EDT
[2024-03-12 02:29] VITALS: BP 112/55; PULSE 87; RESP 18; TEMP 37; O2SAT 99; BMI 33.1
[2024-03-12 03:06] LABS: Basophils Percent Auto 0.5 % (0-2); Eosinophils Absolute Auto 0.3 X10*3/uL (0.0-0.4); Hematocrit 34.8 % (37.0-47.0); Hemoglobin 11.8 g/dl (12.0-16.0); Imm Gran Abs Auto 0.02 X10*3/uL (0.00-0.03); Imm Gran Pct Auto 0.2 % (0.0-0.4); Lymphocytes Absolute Auto 3.1 X10*3/uL (1.2-4.9); Lymphocytes Percent Auto 38.1 % (20-40); MANUAL DIFF FLAG NO; Mean Corpuscular HGB Conc 33.9 g/dl (31.0-35.0); Mean Corpuscular Hemoglobin 29.2 pg (27.0-33.0); Mean Corpuscular Volume 86.1 fL (80.0-98.0); Mean Platelet Volume 9.7 fL (9.4-12.3); Monocytes Absolute Auto 0.5 X10*3/uL (0.1-1.2); Monocytes Percent Auto 5.8 % (2-11); Neutrophils Absolute Auto 4.2 x10*3/uL (2.0-8.3); Neutrophils Percent Auto 51.4 % (45-73); Platelet Count 297 X10*3/uL (160-400); Red Blood Count 4.04 X10*6/uL (4.20-5.50); Red Cell Distribution Width 12.1 % (11.0-16.0); White Blood Count 8.2 X10*3/uL (4.8-10.8)
[2024-03-12 03:15] VITALS: BP 110/62; PULSE 78; RESP 16; TEMP 36.7; O2SAT 100
[2024-03-12 03:27] LABS: Alanine Aminotransferase 12 U/L (0-31); Albumin Level 3.8 g/dL (3.5-5.0); Alkaline Phosphatase 79 U/L (39-117); Anion Gap 11 (12-20); Aspartate Amino Transferase 14 U/L (5-31); Bilirubin Total 0.3 mg/dL (0.0-1.0); Blood Urea Nitrogen 11 mg/dL (9-16); Calcium 8.9 mg/dL (8.4-10.2); Carbon Dioxide 25 mmol/L (22-29); Chloride 110 mmol/L (96-108); Creatinine Clr Calc Pharmacy 111.3; Estimated Glomerular Filt Rate > 60; Glucose Random 99 mg/dL (60-115); HCG Quantitative < 2 mIU/mL; Potassium 3.5 mmol/L (3.3-5.1); Sodium 142 mmol/L (135-145); Total Protein 6.7 g/dL (6.5-8.0)
--- NOTE | 2024-03-12 03:27 | ED_ITS ---
HPI - Female Genitourinary General Chief complaint: Vaginal Bleeding Stated complaint: miscarriage bleeding Time Seen by Provider: 03/12/24 03:27 Source: patient Mode of arrival: ambulatory Limitations: no limitations History of Present Illness ED Provider: terri MOORE Narrative: Patient with irregular menstrual cycles been having lower abdominal pain for last 2 days with vaginal bleed ,yesterday was with clots and today' with small amount of bleeding patient was seen in hospital yesterday was trace positive no ultrasound was done. Patient is status post appendectomy comes here as still having diffuse lower abdominal pain but bleeding has decreased avoid lab showed hCG level <2 patient denied any urinary complaints no fever no chills Related Data Home Medications ?Medication ?Instructions ?Recorded ?Confirmed omeprazole 20 mg capsule,delayed 20 mg PO DAILY 04/27/23 04/27/23 release Previous Rx's ?Medication ?Instructions ?Recorded oxycodone 5 mg tablet 5 mg PO Q4H PRN Pain, Severe (Pain 05/03/23 Scale 7-10) #14 tabs sucralfate 100 mg/mL oral 1 g (10 mL) PO BID #60 mL 05/03/23 suspension amoxicillin 500 mg capsule 1,000 mg (2 x 500 mg) PO BID 2 05/11/23 weeks #56 caps levofloxacin 500 mg tablet 500 mg PO DAILY #14 tabs 05/11/23 pantoprazole 20 mg tablet,delayed 20 mg PO BID 2 weeks #28 tabs 05/11/23 release ibuprofen 600 mg tablet 600 mg PO Q6H PRN fever or pain 03/12/24 #30 tabs Allergies Allergy/AdvReac Type Severity Reaction Status Date / Time No Known Allergies Allergy Verified 03/12/24 02:34 Review of Systems 2 Review of Systems: Yes all other systems are reviewed and are negative [facility] Past Medical History Medical History Choledocholithiasis Tobacco use disorder Surgical History History of ERCP S/P cholecystectomy Social History Social History Household Members: Family Housing: Apartment Patient Tobacco Use Status: Current everyday Tobacco user Tobacco use type: Cigarette Cigarettes Per Day: 7 Advance Directives: No Advance Directives Information Provided: Yes service: No Physical Exam 2 Vital Signs: Vital Signs: Last Vital Signs Temp 98.1 F 03/12/24 06:06 Pulse 88 03/12/24 06:06 Resp 16 03/12/24 06:06 BP 108/73 03/12/24 06:06 Pulse Ox 100 03/12/24 06:06 O2 Del Method Nasal Cannula 03/12/24 06:06 O2 Flow Rate 2 03/12/24 06:06 BMI result Body Mass Index 33.1 Appearance: Alert. Oriented X3. In moderate distress Eyes: No pallor or icterus ENT: Pharynx normal. Oral Mucosa moist Neck: Normal inspection. Neck supple. CVS: Normal heart rate and rhythm. Pulses normal. Respiratory: No respiratory distress. Equal air entry bilateral, no wheezing/rales/rhonchi Abdomen: Soft , diffuse tenderness suprapubic area, guarding+ no rebound tenderness Bowel sounds are present, no mass palpable, no CVA tenderness Skin: Skin warm and dry. Normal skin color. Normal skin turgor. Extremities: No lower extremity edema. No calf tenderness Neuro: Oriented X 3. Medications Administered Discontinued Medications Generic Name Dose Route Start Last Admin Trade Name Freq PRN Reason Stop Dose Admin Sodium Chloride 1,000 mls @ 999 mls/hr 03/12/24 03:36 03/12/24 04:31 Ns IV 03/12/24 04:36 999 mls/hr .Q1H1M ONE Administration Ketorolac Tromethamine 30 mg 03/12/24 03:36 03/12/24 04:32 Ketorolac Tromethamine 30 Mg/Ml Vial IVPUSH 03/12/24 03:37 30 mg ONCE ONE Administration Medical Decision Making Medical Decision Making [facility] Narrative: Patient with lower abdominal pain says that she was when tested at other hospital. Our lab hCG was negative ultrasound also negative for IUP normal ovaries no abnormal mass patient's pain likely from dysmenorrhea. Patient felt better after Toradol Differential Diagnosis Differential Diagnoses: The differential diagnosis associated with the presentation includes Ectopic /dysmenorrhea/ovarian cyst/ruptured ovarian cyst Lab Data [facility] Lab Attestation statement: I reviewed the patient's lab results. 03/12/24 03:01 03/12/24 03:01 Labs: Lab Results 09/02/24 Range/Units 03:01 WBC 8.2 (4.8-10.8) X10*3/uL RBC 4.04 L (4.20-5.50) X10*6/uL Hgb 11.8 L (12.0-16.0) g/dl Hct 34.8 L (37.0-47.0) % MCV 86.1 (80.0-98.0) fL MCH 29.2 (27.0-33.0) pg MCHC 33.9 (31.0-35.0) g/dl RDW 12.1 (11.0-16.0) % Plt Count 297 (160-400) X10*3/uL MPV 9.7 (9.4-12.3) fL Immature Gran % (Auto) 0.2 (0.0-0.4) % Neut % (Auto) 51.4 (45-73) % Lymph % (Auto) 38.1 (20-40) % Simpson % (Auto) 5.8 (2-11) % Eos % (Auto) 4.0 (0-4) % Baso % (Auto) 0.5 (0-2) % Lymph # (Auto) 3.1 (1.2-4.9) X10*3/uL Simpson # (Auto) 0.5 (0.1-1.2) X10*3/uL Eos # (Auto) 0.3 (0.0-0.4) X10*3/uL Baso # (Auto) 0.0 (0.0-0.2) X10*3/uL Abs Immat Gran (auto) 0.02 (0.00-0.03) X10*3/uL Absolute Neuts (auto) 4.2 (2.0-8.3) x10*3/uL Absolute Nucleated RBC 0.000 (0.0-0.012) X10*3/uL Nucleated RBC % (auto) 0.0 (0.0-0.2) /100WBC Sodium 142 (135-145) mmol/L Potassium 3.5 (3.3-5.1) mmol/L Chloride 110 H (96-108) mmol/L Carbon Dioxide 25 (22-29) mmol/L Anion Gap 11 L (12-20) BUN 11 (9-16) mg/dL Creatinine 0.74 (0.5-1.4) mg/dL Estim Creat Clear Calc 111.3 Estimated GFR > 60 Random Glucose 99 (60-115) mg/dL Calcium 8.9 (8.4-10.2) mg/dL Total Bilirubin 0.3 (0.0-1.0) mg/dL AST 14 (5-31) U/L ALT 12 (0-31) U/L Alkaline Phosphatase 79 (39-117) U/L Total Protein 6.7 (6.5-8.0) g/dL Albumin 3.8 (3.5-5.0) g/dL Beta HCG, Quant < 2 mIU/mL Blood Type A Positive Radiology Impression Discussion of test interpretation with radiology: I have reviewed the radiologist's reading. Radiologist Impression: [place] [id number] Ultrasound Report Signed Patient: eLann Galindo MR#: [id number] : 1995 Acct:[id number] Age/Sex: 29 / F ADM Date: 03/12/24 Loc: .ED Attending Dr: Ordering Physician: Chapo Crowe MD Date of Service: 03/12/24 Procedure(s): US pelvic and transvaginal Accession Number(s): [id number] cc: Physician,Unknown ; Chapo Crowe MD~ EXAMINATION: US PELVIS CLINICAL INFORMATION: Pelvic pain. COMPARISON: None available. TECHNIQUE: Ultrasound of the pelvis is performed using both transabdominal and transvaginal transducers along with Doppler. Transvaginal imaging is performed due to inadequate visualization transabdominally. FINDINGS: Uterus: The uterus is anteverted and measures 7.6 x 2.9 x 4.7 cm. The double wall endometrial thickness is 0.5 mm. The uterus is smooth in contour and has normal myometrial echogenicity. No visible fibroid. Adnexa: Both ovaries are visualized. There is normal color flow to the adnexa. There is no ovarian torsion. There is a small amount of free fluid within the pelvis. Right ovary measures 3.3 x 3.2 x 2.4 cm. Left ovary measures 4.3 x 2.4 x 2.4 cm. US/US pelvic and transvaginal IMPRESSION: The uterus and ovaries are normal in appearance. Small amount of free fluid within the pelvis. Electronically signed by: Ross Holland MD 03/12/2024 05:22 AM EDT RP Dictated By: Ross Holland MD Signed By: <Electronically signed by Ross Holland MD in OV> 03/12/24521 Discharge Plan Discharge Clinical Impression: Dysmenorrhea Patient Disposition: Home, Self-Care Instructions: Dysmenorrhea (ED) Additional Instructions: Ibuprofen for pain Our test showed that you are not Prescriptions: New ibuprofen 600 mg tablet 600 mg PO Q6H PRN (Reason: fever or pain) Qty: 30 0RF No Action amoxicillin 500 mg capsule 1,000 mg PO BID 14 Days Qty: 56 0RF pantoprazole 20 mg tablet,delayed release (DR/EC) 20 mg PO BID 14 Days Qty: 28 0RF levofloxacin 500 mg tablet 500 mg PO DAILY Qty: 14 0RF omeprazole 20 mg capsule,delayed release(DR/EC) 20 mg PO DAILY sucralfate 100 mg/mL Suspension 1 g PO BID Qty: 60 0RF oxycodone 5 mg Tablet 5 mg PO Q4H PRN (Reason: Pain, Severe (Pain Scale 7-10)) Qty: 14 0RF Rx Instructions: Partial Fill upon patient request. Stand Alone Forms: Work/School Release Interventions: ED Discharge Assessment Last Done: 03/12/24 06:06 Discharge Date/Time: 03/12/24 06:07 Print Language: Kosovan
[2024-03-12] MEDS: 0.9 % Sodium Chloride 1,000 ML 999 ML IV (04:31)
[2024-03-12] MEDS: Ketorolac Tromethamine 30 MG/ML VIAL IVPUSH (04:32)
[2024-03-12 06:05] VITALS: BP 108/73; PULSE 88; RESP 16; TEMP 36.7
[2024-03-12 06:06] VITALS: BP 108/73; PULSE 88; RESP 16; TEMP 36.7; O2SAT 100
== END 2024-03-12 06:07 | disposition home or self-care (01) ==
PROVIDERS: Emergency Provider Internal Medicine
DX: N94.6 Dysmenorrhea, unspecified (principal); R10.30 Lower abdominal pain, unspecified; N93.9 Abnormal uterine and vaginal bleeding, unspecified; R10.2 Pelvic and perineal pain
CPT/HCPCS: 36415; 76830; 76856; 80053; 84702; 85025; 86900; 86901; 96374; 99284; J1885

== ENCOUNTER 2024-12-05 20:55 | Inpatient (IN) | payer MEDICAID, SELFPAY ==
--- NOTE | ~2024-12-05 | CT_ITS ---
EXAMINATION: CT ABDOMEN AND PELVIS WITHOUT CONTRAST CLINICAL INFORMATION: Persistent hypotension postop. Rule out bleeding. COMPARISON: 12/05/2024. TECHNIQUE: Multidetector volumetric imaging was performed from the superior aspect of the liver through the pubic symphysis. Sagittal and coronal reformatted images were obtained on the technologist's workstation. This CT examination was performed using dose optimization techniques as appropriate, variously including the following: *Automated exposure control *Adjustment of mA and/or kV according to patient size (this includes techniques or standardized protocols for targeted exams where dose is matched to indication/reason for exam; i.e. extremities or head) *Use of iterative reconstruction technique FINDINGS: LUNG BASES: Bilateral reticular and groundglass opacities in both lower lobes, with mild volume loss, likely atelectasis. Pneumonia not excluded. No effusions. Heart size normal. No pericardial effusion. LIVER, GALLBLADDER, AND BILIARY TREE: The unenhanced liver is normal in size, shape, and attenuation. No focal hepatic lesion or biliary ductal dilatation is present. Gallbladder is surgically absent. PANCREAS: Unremarkable. SPLEEN: Unremarkable. ADRENAL GLANDS: Unremarkable. KIDNEYS AND URETERS: The kidneys are normal in size, shape, and attenuation. No hydronephrosis, hydroureter, or calculi seen. No perinephric stranding. BLADDER: Unremarkable. GASTROINTESTINAL TRACT: Recent surgical changes status post appendectomy. No focal collection or hematoma abutting the cecum. SATINDER drain in place, at the base of the cecum and coursing cephalad along the lateral ascending colon. Small bowel is normal. Colon is otherwise normal. ABDOMINAL WALL: Expected postoperative changes. SATINDER drain entering the right inferior rectus muscle. LYMPH NODES: Normal. VASCULAR: Unremarkable. PELVIC VISCERA: The uterus and adnexa are unremarkable. OSSEOUS STRUCTURES: Unremarkable. CT/CT abdomen pelvis wo IV con IMPRESSION: 1. Bilateral lower lobe reticular and groundglass opacities, with mild bilateral lower lobe volume loss, most likely complex atelectasis. Cannot exclude pneumonia given the appearance. 2. No significant bleeding or hematoma within the abdomen. 3. Appendectomy. ULICES drain in place. Electronically signed by: David Polo MD 12/07/2024 10:22 AM EDT
--- NOTE | ~2024-12-05 | CT_ITS ---
CLINICAL HISTORY: Lower abdominal pain? Appendicitis CT abdomen and pelvis with contrast Comparison: CT/SR - CT ABDOMEN PELVIS W IV CON - 04/27/23 00:06 EDT Findings: No consolidation or effusion. Small left mid renal cyst. Cholecystectomy. Abdominal solid organs otherwise unremarkable. No urolithiasis. No bowel obstruction, pneumoperitoneum, or pneumatosis. Mesenteric vessels patent. Proximal appendicolith. Appendiceal diameter up to 9 mm. Proximal appendiceal wall is hypoenhancing. There is mild periappendiceal fat stranding. Nabothian cysts. Uterus and ovaries unremarkable. Physiologic quantity of fluid in the pelvis. The bones are intact. IMPRESSION: Acute appendicitis, possibly gangrenous. No abscess. This document has been electronically signed by: Duran Zepeda MD on 12/05/2024 23:25:28
[2024-12-05 21:02] VITALS: BP 109/66; PULSE 79; RESP 18; TEMP 36.3; O2SAT 99; BMI 35.8
--- NOTE | 2024-12-05 21:08 | ECG_ITS ---
Test Reason : ABDOMINAL PAIN Blood Pressure : */* mmHG Vent. Rate : 88 BPM Atrial Rate : 88 BPM P-R Int : 166 ms QRS Dur : 62 ms QT Int : 354 ms P-R-T Axes : 61 68 70 degrees QTcB Int : 428 ms Normal sinus rhythm with sinus arrhythmia Normal ECG When compared with ECG of 26-Apr-2023 19:50, No significant change was found Referred By: Generic ED Physician Electronically Signed By: NIKA BHAT MD
[2024-12-05 21:48] VITALS: BP 102/55; PULSE 78; RESP 18; TEMP 36.4; O2SAT 99
[2024-12-05 21:50] LABS: MANUAL DIFF FLAG NO
[2024-12-05 21:55] LABS: Basophils Absolute Auto 0.1 X10*3/uL (0.0-0.2); Basophils Percent Auto 0.4 % (0-2); Eosinophils Absolute Auto 0.2 X10*3/uL (0.0-0.4); Eosinophils Percent Auto 0.9 % (0-4); Hematocrit 38.1 % (37.0-47.0); Hemoglobin 12.8 g/dl (12.0-16.0); Imm Gran Abs Auto 0.06 X10*3/uL (0.00-0.03); Imm Gran Pct Auto 0.4 % (0.0-0.4); Lymphocytes Absolute Auto 2.4 X10*3/uL (1.2-4.9); Lymphocytes Percent Auto 14.4 % (20-40); Mean Corpuscular HGB Conc 33.6 g/dl (31.0-35.0); Mean Corpuscular Hemoglobin 28.6 pg (27.0-33.0); Mean Corpuscular Volume 85.2 fL (80.0-98.0); Mean Platelet Volume 9.9 fL (9.4-12.3); Monocytes Absolute Auto 0.7 X10*3/uL (0.1-1.2); Monocytes Percent Auto 4.4 % (2-11); Neutrophils Absolute Auto 13.4 x10*3/uL (2.0-8.3); Neutrophils Percent Auto 79.5 % (45-73); Platelet Count 320 X10*3/uL (160-400); Red Blood Count 4.47 X10*6/uL (4.20-5.50); Red Cell Distribution Width 12.2 % (11.0-16.0); White Blood Count 16.8 X10*3/uL (4.8-10.8)
--- NOTE | 2024-12-05 22:00 | PC.NURSE ---
29 yo F presents to ED c/o +epigastric/RLQ abdominal pain radiating to right flank, also c/o +nausea, x1 day, denies vomiting, VSS, no fever/chills, pertinent medical hx including removal of gallbladder about 1 year ago, reports regular BMs, A&Ox4, patient is in obvious discomfort upon this investment underwriter's assessment, +grimacing, +tearful, +restless, dispo pending
--- NOTE | 2024-12-05 22:05 | ED_ITS ---
HPI - Abdominal Pain General Chief Complaint: Abdominal Pain Stated Complaint: abd pain; n/v/d Time Seen by Provider: 12/05/24 21:57 Source: patient Mode of arrival: ambulatory Limitations: no limitations History of Present Illness ED Provider: HPI narrative: Patient [id number] old status post cholecystectomy for choledocholithiasis in 2022 comes here for acute onset of pain in lower abdomen and right lower abdomen about 5 hours (since 13:00) with nausea vomiting unable to stand up because of pain no fever no chills no urinary symptoms no history of ovarian cyst last meal was in a.m. today Related Data Home Medications ?Medication ?Instructions ?Recorded ?Confirmed omeprazole 20 mg capsule,delayed 20 mg PO DAILY 04/27/23 04/27/23 release Previous Rx's ?Medication ?Instructions ?Recorded oxycodone 5 mg tablet 5 mg PO Q4H PRN Pain, Severe (Pain 05/03/23 Scale 7-10) #14 tabs sucralfate 100 mg/mL oral 1 g (10 mL) PO BID #60 mL 05/03/23 suspension amoxicillin 500 mg capsule 1,000 mg (2 x 500 mg) PO BID 2 05/11/23 weeks #56 caps levofloxacin 500 mg tablet 500 mg PO DAILY #14 tabs 05/11/23 pantoprazole 20 mg tablet,delayed 20 mg PO BID 2 weeks #28 tabs 05/11/23 release ibuprofen 600 mg tablet 600 mg PO Q6H PRN fever or pain 03/12/24 #30 tabs Allergies Allergy/AdvReac Type Severity Reaction Status Date / Time No Known Allergies Allergy Verified 12/05/24 21:04 Review of Systems Review of Systems Yes all other systems are reviewed and are negative PMFSH Past Medical History Medical History Choledocholithiasis Tobacco use disorder Surgical History History of ERCP S/P cholecystectomy Social History Social History Household Members: Family Housing: Apartment Patient Tobacco Use Status: Current everyday Tobacco user Tobacco use type: Cigarette Cigarettes Per Day: 7 Smoked in Last 30 Days: No Use of substances other than those prescribed or required for medical reasons: No Advance Directives: No Advance Directives Information Provided: No Do you have a plan to hurt others: No Plan service: No Physical Exam ED Vital Signs: Vital Signs - 24 hr 12/05/24 21:02 12/05/24 21:48 12/05/24 22:42 Temperature 97.4 F 97.5 F Pulse Rate 79 78 77 Respiratory Rate 18 18 18 Blood Pressure 109/66 102/55 L 124/59 L Pulse Oximetry 99 99 98 Oxygen Delivery Method Room Air Room Air Room Air 12/05/24 23:33 Temperature Pulse Rate 84 Respiratory Rate 18 Blood Pressure 123/56 L Pulse Oximetry 100 Oxygen Delivery Method Room Air BMI result Body Mass Index 35.8 Appearance: Alert. Oriented X3. In severe distress Eyes: PERRLA, No Nystagmus ENT: Pharynx normal. Oral Mucosa moist Neck: Normal inspection. Neck supple. CVS: Normal heart rate and rhythm. Pulses normal. Respiratory: No respiratory distress. Equal air entry bilateral, no wheezing/rales/rhonchi Abdomen: Soft and rlq tender with guarding Bowel sounds are present, no mass palpable, no CVA tenderness Skin: Skin warm and dry. Normal skin color. Normal skin turgor. Extremities: No lower extremity edema. No calf tenderness Neuro: Oriented X 3. No motor deficit. Medical Decision Making Medical Decision Making MDM Narrative: Patient with acute appendicitis with normal lactic acid level started on Zosyn case discussed surgeon Dr. Morocho will do the appendectomy in a.m. Differential Diagnosis Differential Diagnoses: The differential diagnosis associated with the presentation includes Appendicitis/ovarian cyst/ectopic Lab Data [facility] Lab Attestation statement: I reviewed the patient's lab results. 12/05/24 21:45 12/05/24 21:45 Labs: Lab Results 12/05/24 12/05/24 12/05/24 Range/Units 21:45 22:29 22:38 WBC 16.8 H (4.8-10.8) X10*3/uL RBC 4.47 (4.20-5.50) X10*6/uL Hgb 12.8 (12.0-16.0) g/dl Hct 38.1 (37.0-47.0) % MCV 85.2 (80.0-98.0) fL MCH 28.6 (27.0-33.0) pg MCHC 33.6 (31.0-35.0) g/dl RDW 12.2 (11.0-16.0) % Plt Count 320 (160-400) X10*3/uL MPV 9.9 (9.4-12.3) fL Immature Gran % (Auto) 0.4 (0.0-0.4) % Neut % (Auto) 79.5 H (45-73) % Lymph % (Auto) 14.4 L (20-40) % Overton % (Auto) 4.4 (2-11) % Eos % (Auto) 0.9 (0-4) % Baso % (Auto) 0.4 (0-2) % Lymph # (Auto) 2.4 (1.2-4.9) X10*3/uL Overton # (Auto) 0.7 (0.1-1.2) X10*3/uL Eos # (Auto) 0.2 (0.0-0.4) X10*3/uL Baso # (Auto) 0.1 (0.0-0.2) X10*3/uL Abs Immat Gran (auto) 0.06 H (0.00-0.03) X10*3/uL Absolute Neuts (auto) 13.4 H (2.0-8.3) x10*3/uL Absolute Nucleated RBC 0.000 (0.0-0.012) X10*3/uL Nucleated RBC % (auto) 0.0 (0.0-0.2) /100WBC Sodium 139 (135-145) mmol/L Potassium 4.1 (3.3-5.1) mmol/L Chloride 107 (96-108) mmol/L Carbon Dioxide 23 (22-29) mmol/L Anion Gap 13 (12-20) BUN 12 (9-16) mg/dL Creatinine 0.68 (0.5-1.4) mg/dL Estim Creat Clear Calc 126.4 Estimated GFR > 60 Random Glucose 94 (60-115) mg/dL Lactic Acid (0.5-2.0) mmol/L Calcium 9.2 (8.4-10.2) mg/dL Magnesium 2.0 (1.6-2.6) mg/dL Total Bilirubin 0.3 (0.0-1.0) mg/dL AST 20 (5-31) U/L ALT 18 (0-31) U/L Alkaline Phosphatase 92 (39-117) U/L Troponin I High Sens < 2.7 (<3.5-17.0) ng/L Total Protein 7.3 (6.5-8.0) g/dL Albumin 4.4 (3.5-5.0) g/dL Lipase 9 (8-78) U/L Beta HCG, Quant < 2 mIU/mL Urine Color Yellow Urine Appearance Clear Urine pH 7.0 (5.0-9.0) Ur Specific [place] 1.025 (1.005-1.025) Urine Protein 30 (1+) H (Neg-Trace) mg/dL Urine Glucose (UA) Negative (Negative) mg/dL Urine Ketones Trace (Negative) mg/dL Urine Blood Negative (Negative) Urine Nitrite Negative (Negative) Ur Leukocyte Esterase Negative (Negative) Urine RBC 0-2 (0-2) /HPF Urine WBC 0-5 (0-5) /HPF Ur Squamous Epith Cells 0-2 (0-2) /HPF Urine Bacteria None Seen (None Seen) Hyaline Casts 3-5 (0-2) /LPF Urine Test NEGATIVE (NEGATIVE) Urine Opiates Screen Not Detected (Not Detect) Ur Buprenorphine Scrn Not Detected (Not Detect) ng/mL Ur Oxycodone Screen Not Detected (Not Detect) ng/mL Urine Methadone Screen Not Detected (Not Detect) ng/mL Urine Fentanyl Screen POSITIVE H (Not Detect) Ur Barbiturates Screen Not Detected (Not Detect) Ur Phencyclidine Scrn Not Detected (Not Detect) Ur Amphetamines Screen Not Detected (Not Detect) U Benzodiazepines Scrn Not Detected (Not Detect) Urine Cocaine Screen Not Detected (Not Detect) U Marijuana (THC) Screen Not Detected (Not Detect) 12/05/24 Range/Units 23:35 WBC (4.8-10.8) X10*3/uL RBC (4.20-5.50) X10*6/uL Hgb (12.0-16.0) g/dl Hct (37.0-47.0) % MCV (80.0-98.0) fL MCH (27.0-33.0) pg MCHC (31.0-35.0) g/dl RDW (11.0-16.0) % Plt Count (160-400) X10*3/uL MPV (9.4-12.3) fL Immature Gran % (Auto) (0.0-0.4) % Neut % (Auto) (45-73) % Lymph % (Auto) (20-40) % Overton % (Auto) (2-11) % Eos % (Auto) (0-4) % Baso % (Auto) (0-2) % Lymph # (Auto) (1.2-4.9) X10*3/uL [place] # (Auto) (0.1-1.2) X10*3/uL Eos # (Auto) (0.0-0.4) X10*3/uL Baso # (Auto) (0.0-0.2) X10*3/uL Abs Immat Gran (auto) (0.00-0.03) X10*3/uL Absolute Neuts (auto) (2.0-8.3) x10*3/uL Absolute Nucleated RBC (0.0-0.012) X10*3/uL Nucleated RBC % (auto) (0.0-0.2) /100WBC Sodium (135-145) mmol/L Potassium (3.3-5.1) mmol/L Chloride (96-108) mmol/L Carbon Dioxide (22-29) mmol/L Anion Gap (12-20) BUN (9-16) mg/dL Creatinine (0.5-1.4) mg/dL Estim Creat Clear Calc Estimated GFR Random Glucose (60-115) mg/dL Lactic Acid 0.9 (0.5-2.0) mmol/L Calcium (8.4-10.2) mg/dL Magnesium (1.6-2.6) mg/dL Total Bilirubin (0.0-1.0) mg/dL AST (5-31) U/L ALT (0-31) U/L Alkaline Phosphatase (39-117) U/L Troponin I High Sens (<3.5-17.0) ng/L Total Protein (6.5-8.0) g/dL Albumin (3.5-5.0) g/dL Lipase (8-78) U/L Beta HCG, Quant mIU/mL Urine Color Urine Appearance Urine pH (5.0-9.0) Ur Specific [place] (1.005-1.025) Urine Protein (Neg-Trace) mg/dL Urine Glucose (UA) (Negative) mg/dL Urine Ketones (Negative) mg/dL Urine Blood (Negative) Urine Nitrite (Negative) Ur Leukocyte Esterase (Negative) Urine RBC (0-2) /HPF Urine WBC (0-5) /HPF Ur Squamous Epith Cells (0-2) /HPF Urine Bacteria (None Seen) Hyaline Casts (0-2) /LPF Urine Test (NEGATIVE) Urine Opiates Screen (Not Detect) Ur Buprenorphine Scrn (Not Detect) ng/mL Ur Oxycodone Screen (Not Detect) ng/mL Urine Methadone Screen (Not Detect) ng/mL Urine Fentanyl Screen (Not Detect) Ur Barbiturates Screen (Not Detect) Ur Phencyclidine Scrn (Not Detect) Ur Amphetamines Screen (Not Detect) U Benzodiazepines Scrn (Not Detect) Urine Cocaine Screen (Not Detect) U Marijuana (THC) Screen (Not Detect) Independent Interpretation I performed an independent interpretation of an: CT Scan Interpretation: Positive for appendicitis Radiology Impression Discussion of test interpretation with radiology: I have reviewed the radiologist's reading. Radiologist Impression: [place] [id number] CT Scan Report Signed with Barber Patient: Leann Galindo MR#: [id number] : 1995 Acct:[id number] Age/Sex: 29 / F ADM Date: 12/05/24 Loc: .ED Attending Dr: Ordering Physician: Chapo Crowe MD Date of Service: 12/05/24 Procedure(s): CT abdomen pelvis w IV con Accession Number(s): [id number] cc: Physician,Unknown ; Chapo Crowe MD~ Report Number: [id number]: Total DLP = 783.00 mGy-cm ADDENDUMThis document has been electronically signed by: Duran Zepeda MD on 12/05/2024 23:25:28 ADDENDUM: This report was discussed with Sebastien Cohen on December 05, 2024 23:29:00 EDT. This document has been electronically signed by: Rossy Aguilar on 12/05/2024 23:29:15 Addendum Dictated By: Duran Zepeda MD Addendum Signed By: <Electronically signed by Duran Zepeda MD in OV> 12/05/24 2330 Addendum Cosigned By: DD/ TD/TT: 12/05/24 CLINICAL HISTORY: Lower abdominal pain? Appendicitis CT abdomen and pelvis with contrast Comparison: CT/SR - CT ABDOMEN PELVIS W IV CON - 04/27/23 00:06 EDT Findings: No consolidation or effusion. Small left mid renal cyst. Cholecystectomy. Abdominal solid organs otherwise unremarkable. No urolithiasis. No bowel obstruction, pneumoperitoneum, or pneumatosis. Mesenteric vessels patent. Proximal appendicolith. Appendiceal diameter up to 9 mm. Proximal appendiceal wall is hypoenhancing. There is mild periappendiceal fat stranding. Nabothian cysts. Uterus and ovaries unremarkable. Physiologic quantity of fluid in the pelvis. The bones are intact. IMPRESSION: Acute appendicitis, possibly gangrenous. No abscess. This document has been electronically signed by: Duran Zepeda MD on 12/05/2024 23:25:28 Medications Administered Generic Name Dose Route Start Last Admin Trade Name Freq PRN Reason Stop Dose Admin Sodium Chloride 1,000 mls @ 125 mls/hr 12/05/24 23:45 12/06/24 00:04 Ns IVCONT 125 mls/hr .Q8H KATEY Administration Sodium Chloride 3 ml 12/06/24 00:00 12/06/24 00:05 0.9 % Sodium Chloride Flush 3 Ml Syringe IVFLUSH 3 ml QSHIFT KATEY Administration Discontinued Medications Generic Name Dose Route Start Last Admin Trade Name Freq PRN Reason Stop Dose Admin Sodium Chloride 1,000 mls @ 999 mls/hr 12/05/24 22:17 12/05/24 23:47 Ns IV 12/05/24 23:17 Infused .Q1H1M ONE Infusion Piperacillin Sod/Tazobactam 50 mls @ 100 mls/hr 12/05/24 23:29 12/05/24 23:52 Sod 3.375 gm/ Sodium Chloride IV 12/05/24 23:58 100 mls/hr ONCE ONE Administration Iohexol 85 ml 12/05/24 22:31 12/05/24 22:32 Iohexol 350 Mg/Ml 100 Ml Infus..Btl IV 12/05/24 22:32 85 ml ONCE ONE Administration Morphine Sulfate 4 mg 12/05/24 22:17 12/05/24 22:41 Morphine Sulfate 4 Mg/Ml Cartridge IVPUSH 12/05/24 22:18 4 mg ONCE ONE Administration Protocol Morphine Sulfate 4 mg 12/05/24 23:32 12/05/24 23:52 Morphine Sulfate 4 Mg/Ml Cartridge IVPUSH 12/05/24 23:33 4 mg ONCE ONE Administration Protocol Ondansetron HCl 4 mg 12/05/24 22:17 12/05/24 22:41 Ondansetron Hcl 4 Mg/2 Ml Vial IVPUSH 12/05/24 22:18 4 mg ONCE ONE Administration Discharge Plan Discharge Clinical Impression: Acute appendicitis Patient Disposition: Admitted As Inpatient
[2024-12-05 22:12] LABS: Alanine Aminotransferase 18 U/L (0-31); Albumin Level 4.4 g/dL (3.5-5.0); Alkaline Phosphatase 92 U/L (39-117); Anion Gap 13 (12-20); Aspartate Amino Transferase 20 U/L (5-31); Bilirubin Total 0.3 mg/dL (0.0-1.0); Blood Urea Nitrogen 12 mg/dL (9-16); Calcium 9.2 mg/dL (8.4-10.2); Carbon Dioxide 23 mmol/L (22-29); Chloride 107 mmol/L (96-108); Creatinine Clr Calc Pharmacy 126.4; Estimated Glomerular Filt Rate > 60; Glucose Random 94 mg/dL (60-115); Lipase 9 U/L (8-78); Potassium 4.1 mmol/L (3.3-5.1); Sodium 139 mmol/L (135-145); Total Protein 7.3 g/dL (6.5-8.0)
[2024-12-05 22:13] LABS: HCG Quantitative < 2 mIU/mL; Troponin-I High Sensitivity < 2.7 ng/L (<3.5-17.0)
[2024-12-05] MEDS: iohexoL 350 MG/ML 100 ML INFUS..BTL 85 ML IV (22:32)
[2024-12-05 22:39] LABS: Appearance Urine Clear; Color Urine Yellow; Glucose Urine UA Negative (Negative); Leukocyte Esterase Urine Negative (Negative); Nitrite Urine Negative (Negative); Specific Gravity - Urine 1.025 (1.005-1.025); UMIC TRIGGER UACC YES; Urine Blood Negative (Negative); Urine Ketones Trace mg/dL (Negative); Urine Protein 30 (1+) mg/dL (Neg-Trace)
[2024-12-05] MEDS: Morphine Sulfate 4 MG/ML CARTRIDGE IVPUSH ×2 (22:41→23:52)
[2024-12-05] MEDS: ondansetron HCL 4 MG/2 ML VIAL IVPUSH (22:41)
[2024-12-05 22:42] VITALS: BP 124/59; PULSE 77; RESP 18; O2SAT 98
[2024-12-05] MEDS: 0.9 % Sodium Chloride 1,000 ML 999 ML IV (22:42)
[2024-12-05 22:49] LABS: Amphetamine Screen Urine Not Detected (Not Detect); Barbiturates, Urine Not Detected (Not Detect); Benzodiazepines Screen Urine Not Detected (Not Detect); Buprenorphine Scr Not Detected (Not Detect); Cannabinoid Screen Urine Not Detected (Not Detect); Cocaine Screen Urine Not Detected (Not Detect); Fentanyl, urine POSITIVE (Not Detect); Methadone Screen, Urine Not Detected (Not Detect); Opiate Screen Urine Not Detected (Not Detect); Oxycodone Screen Urine Not Detected (Not Detect); Phencyclidine Screen Urine Not Detected (Not Detect)
[2024-12-05 22:50] LABS: UPreg QC Valid YES; Urine Pregnancy NEGATIVE (NEGATIVE)
[2024-12-05 22:56] LABS: Bacteria Urine None Seen (None Seen); RBC Urine 0-2 /HPF (0-2); Squamous Epithelial Cell Urine 0-2 /HPF (0-2); WBC Urine 0-5 /HPF (0-5)
[2024-12-05 23:33] VITALS: BP 123/56; PULSE 84; RESP 18; O2SAT 100
[2024-12-05] MEDS: Piperacillin Sodium/Tazobactam 3.375 GM in 0.9 % Sodium Chloride 50 ML IV (23:52)
[2024-12-06] VITALS (24 sets, daily range): BP systolic 88–126; BP diastolic 45–74; PULSE 55–125; RESP 12–20; TEMP 36.4–38.3; O2SAT 94–100; BMI 35.8
[2024-12-06 00:04] LABS: Lactic Acid 0.9 mmol/L (0.5-2.0)
[2024-12-06] MEDS: 0.9 % Sodium Chloride 1,000 ML 125 ML IVCONT ×4 (00:04→17:19)
[2024-12-06] MEDS: 0.9 % Sodium Chloride Flush 3 ML SYRINGE IVFLUSH ×3 (00:05→23:44)
[2024-12-06] MEDS: Morphine Sulfate 4 MG/ML CARTRIDGE 3 MG IVPUSH ×2 (01:10→05:04)
--- NOTE | 2024-12-06 02:07 | PC.NURSE ---
MD made aware that patient is c/o 10 out of 10 pain after administration of morphine, verbal/readback dose of Toradol ordered, will administer and reassess for effect
[2024-12-06] MEDS: Ketorolac Tromethamine 30 MG/ML VIAL IVPUSH ×3 (02:14→18:26)
[2024-12-06 05:45] LABS: MANUAL DIFF FLAG NO
[2024-12-06 05:46] LABS: Basophils Absolute Auto 0.1 X10*3/uL (0.0-0.2); Basophils Percent Auto 0.2 % (0-2); Hematocrit 38.1 % (37.0-47.0); Imm Gran Abs Auto 0.14 X10*3/uL (0.00-0.03); Imm Gran Pct Auto 0.6 % (0.0-0.4); Lymphocytes Absolute Auto 1.6 X10*3/uL (1.2-4.9); Lymphocytes Percent Auto 7.1 % (20-40); Mean Corpuscular HGB Conc 34.1 g/dl (31.0-35.0); Mean Corpuscular Hemoglobin 28.9 pg (27.0-33.0); Mean Corpuscular Volume 84.7 fL (80.0-98.0); Mean Platelet Volume 10.7 fL (9.4-12.3); Monocytes Absolute Auto 1.4 X10*3/uL (0.1-1.2); Monocytes Percent Auto 6.2 % (2-11); Neutrophils Absolute Auto 19.3 x10*3/uL (2.0-8.3); Neutrophils Percent Auto 85.9 % (45-73); Platelet Count 282 X10*3/uL (160-400); Red Cell Distribution Width 12.3 % (11.0-16.0); White Blood Count 22.5 X10*3/uL (4.8-10.8)
[2024-12-06] MEDS: Piperacillin Sodium/Tazobactam 3.375 GM in 0.9 % Sodium Chloride 50 ML IV ×4 (05:51→23:45)
[2024-12-06 06:13] LABS: Anion Gap 15 (12-20); Blood Urea Nitrogen 11 mg/dL (9-16); Calcium 8.7 mg/dL (8.4-10.2); Carbon Dioxide 18 mmol/L (22-29); Chloride 110 mmol/L (96-108); Creatinine Clr Calc Pharmacy 130.2; Estimated Glomerular Filt Rate > 60; Glucose Random 77 mg/dL (60-115); Potassium 4.4 mmol/L (3.3-5.1); Sodium 139 mmol/L (135-145)
--- NOTE | 2024-12-06 07:03 | PM.HPGS ---
History of Present Illness History of Present Illness Date of Service: 12/06/24 <Jn Lnidsay PA-C - Last Filed: 12/06/24 12:38> 12/06/24 <Erik Klein MD - Last Filed: 12/06/24 08:28> Chief complaint: Abdominal Pain <Jn Lindsay PA-C - Last Filed: 12/06/24 12:38> Narrative: Leann Mccoy is a 29 year old female s/p cholecystectomy, with a pmhx significant for hypothyroidism, tobacco use disorder presenting with RLQ abdominal pain that started yesterday. Reports it continued to get worse. She was experiencing nausea and vomiting, she was unable to tolerate any food. She states shes had similar pain like this when she had to have her gallbladder removed. She denies fever at home. Reports bowel habits have been normal for her over the past few days. Patient denies any current daily medications. She reports following an outside manager skilled, but states that she has not been seen recently. She endorses cigarette use, denies alcohol and recreational drug use. On CT scan, patient was found to have a proximal appendicolith with surrounding inflammatory changes and appendiceal dilation, findings are consistent with acute appendicitis with possible gangrene, without abscess formation. Evidence of leukocytosis on intial ED labs, repeat labs this morning show worsening leukocytosis, now 22.5. She was started on IV zosyn and IVF in the ED. She has been NPO since her last meal in the morning on 12/05/24. <Jn Lindsay PA-C - Last Filed: 12/06/24 12:38> Review of Systems Gastrointestinal: Gastrointestinal: Reports abdominal pain (everywhere, RLQ primarily), Reports nausea and Reports vomiting <Jn Lindsay PA-C - Last Filed: 12/06/24 12:38> [facility] Past Medical History Medical History: Medical History Choledocholithiasis Tobacco use disorder <Jn Lindsay PA-C - Last Filed: 12/06/24 12:38> Surgical History Surgical History: Surgical History History of ERCP S/P cholecystectomy <Jn Lindsay PA-C - Last Filed: 12/06/24 12:38> Social History Social History: Social History Household Members: Family Housing: Apartment Patient Tobacco Use Status: Current everyday Tobacco user Tobacco use type: Cigarette Cigarettes Per Day: 10 Second Hand Smoke Exposure: No service: No <Jn Lindsay PA-C - Last Filed: 12/06/24 12:38> Meds Allergies/Adverse reactions: Allergies Allergy/AdvReac Type Severity Reaction Status Date / Time No Known Allergies Allergy Verified 12/05/24 21:04 <Jn Lindsay PA-C - Last Filed: 12/06/24 12:38> Active Medications: Current Medications Acetaminophen (Acetaminophen 325 Mg Tablet) 650 mg PO Q6H PRN PRN Reason: Pain, Mild 1-3,fever,headache Sodium Chloride (Ns) 1,000 mls @ 125 mls/hr IVCONT .Q8H [facility] Last Admin: 12/06/24 00:04 Dose: 125 mls/hr Piperacillin Sod/Tazobactam (Sod 3.375 gm/ Sodium Chloride) 50 mls @ 100 mls/hr IV RQ6H [facility] Last Infusion: 12/06/24 06:24 Dose: Infused Melatonin (Melatonin 3 Mg Tablet) 6 mg PO BEDTIME PRN PRN Reason: Insomnia Morphine Sulfate (Morphine Sulfate 4 Mg/Ml Cartridge) 3 mg IVPUSH Q4H PRN; Protocol PRN Reason: Pain, Severe (Pain Scale 7-10) Last Admin: 12/06/24 05:04 Dose: 3 mg Ondansetron HCl (Ondansetron Hcl 4 Mg/2 Ml Vial) 4 mg IVPUSH Q8H PRN PRN Reason: Nausea and Vomiting Sodium Chloride (0.9 % Sodium Chloride Flush 3 Ml Syringe) 3 ml IVFLUSH [facility] Last Admin: 12/06/24 00:05 Dose: 3 ml <Jn Lindsay PA-C - Last Filed: 12/06/24 12:38> Home medications: Home Medications ?Medication ?Instructions ?Recorded ?Confirmed ?Last Taken ?Type omeprazole 20 mg capsule,delayed 20 mg PO DAILY 04/27/23 04/27/23 Unknown History release <Jn Lindsay PA-C - Last Filed: 12/06/24 12:38> Physical Exam Vital Signs: Vital Signs: Last Vital Signs Temp 97.5 F 12/05/24 21:48 Pulse 111 H 12/06/24 05:52 Resp 18 12/06/24 05:52 BP 100/48 L 12/06/24 05:52 Pulse Ox 100 12/06/24 05:52 O2 Del Method Room Air 12/06/24 05:52 BMI result Body Mass Index 35.8 <Jn Lindsay PA-C - Last Filed: 12/06/24 12:38> Const: General: in distress; No comfortable <DIONNE Owusu Last Filed: 12/06/24 12:38> Orientation/consciousness: patient oriented x3 <DIONNE Owusu Last Filed: 12/06/24 12:38> Resp: Effort & Inspection: able to speak in complete sentences <Jn Lindsay PA-C - Last Filed: 12/06/24 12:38> GI: Inspection: No distended <DIONNE Owusu Last Filed: 12/06/24 12:38> Palpation (GI): Soft to palpation, not firm, Tenderness to palpation present (GI) (diffuse tenderness) in the RLQ (focal point), at McBurney's point and Rovsing's sign positive; with no rebound tenderness, Guarding due to palpation present (GI) and not rigid <Jn Lindsay PA-C - Last Filed: 12/06/24 12:38> Percussion: Yes normal to percussion <Jn Lindsay PA-C - Last Filed: 12/06/24 12:38> Neuro: General: patient oriented x3 <DIONNE Owusu Last Filed: 12/06/24 12:38> Results Results Labs: Short CBC 12/05/24 12/06/24 Range/Units 21:45 04:45 WBC 16.8 H 22.5 H (4.8-10.8) X10*3/uL Hgb 12.8 13.0 (12.0-16.0) g/dl Hct 38.1 38.1 (37.0-47.0) % Plt Count 320 282 (160-400) X10*3/uL BMP 12/05/24 12/06/24 21:45 04:45 Sodium 139 139 Potassium 4.1 4.4 Chloride 107 110 H Carbon Dioxide 23 18 L BUN 12 11 Creatinine 0.68 0.66 Calcium 9.2 8.7 Liver Function 12/05/24 Range/Units 21:45 Total Bilirubin 0.3 (0.0-1.0) mg/dL AST 20 (5-31) U/L ALT 18 (0-31) U/L Alkaline Phosphatase 92 (39-117) U/L Albumin 4.4 (3.5-5.0) g/dL Urine 12/05/24 12/05/24 Range/Units 22:29 22:38 Urine Color Yellow Urine Appearance Clear Urine pH 7.0 (5.0-9.0) Ur Specific [place] 1.025 (1.005-1.025) Urine Protein 30 (1+) H (Neg-Trace) mg/dL Urine Glucose (UA) Negative (Negative) mg/dL Urine Test NEGATIVE (NEGATIVE) <Jn Lindsay PA-C - Last Filed: 12/06/24 12:38> Assessment and Plan (1) Acute appendicitis: Qualifiers: Acute appendicitis type: with localized peritonitis <Jn Lindsay PA-C - Last Filed: 12/06/24 12:38> Status: Acute <Jn Lindsay PA-C - Last Filed: 12/06/24 12:38> 29-year-old female with right lower quadrant pain since yesterday afternoon Currently appears to be in significant discomfort with pain Abdomen very tender mostly in the right side WBC elevated Cat scan reviewed - consistent with the acute appendicitis, with thickening of the appendix, abimael appendiceal stranding, with an appendicolith We will need to proceed with urgent appendectomy I explained to her and her at bedside the technique of laparoscopic appendectomy and possible open I reviewed the risks including but not limited to bleeding, infections, bowel injury, injury to urinary tract and other organs, abscess formation, inherent risks of anesthesia, as well as the benefits and alternatives She has given consent <Erik Klein MD - Last Filed: 12/06/24 08:28> 29 year old female s/p cholecystectomy, with a pmhx significant for hypothyroidism, tobacco use disorder presenting with RLQ abdominal pain that started yesterday. Patient experiencing significant abdominal pain with associated nausea and vomiting. Imaging was reviewed, findings are consistent with acute appendicitis. Labs showing worsening leukocytosis on repeat am labs, now increased to 22.5. On exam patient is very uncomfortable, she has diffuse abdominal pain to palpation with voluntary gaurding, with a focus on the RLQ. Abdomen is soft. She has positive mcburneys and rosvings, negative rebound tenderness. We discussed our plan for laparascopic appendectomy possible open, this morning. patient agreeable to plan, we discussed risks including injury to surrounding organs, infection, bleeding and pain. Patient as been NPO since yesterday morning. Plan for laparoscopic appendectomy, possible open this morning Continue IV Zosyn Continue IV fluids NPO Pain control <Jn Lindsay PA-C - Last Filed: 12/06/24 12:38> Quality Stroke Does the patient have a stroke diagnosis?: No <Jn Lindsay PA-C - Last Filed: 12/06/24 12:38> VTE Prior VTE?: No <Jn Lindsay PA-C - Last Filed: 12/06/24 12:38> VTE Risk Level:: Surgical - low <Jn Lindsay PA-C - Last Filed: 12/06/24 12:38> VTE Device Contraindication: N/A - Device Ordered <Jn Lindsay PA-C - Last Filed: 12/06/24 12:38> VTE Drug Contraindication: Treatment Not Indicated <Jn Lindsay PA-C - Last Filed: 12/06/24 12:38> Procedures Date of Service Date of Service: 12/06/24 <Jn Lindsay PA-C - Last Filed: 12/06/24 12:38> 12/06/24 <Erik Klein MD - Last Filed: 12/06/24 08:28>
[2024-12-06] MEDS: Morphine Sulfate 4 MG/ML CARTRIDGE IVPUSH ×3 (07:35→20:10)
--- NOTE | 2024-12-06 07:37 | PC.NURSE ---
Addendum entered by Caroline Lopez RN 12/06/24 07:38: Patient presents with c/i epigastric pain/RLQ pain with assoc N/V. Alert and oriented but uncomfortable. Patient fevbrile and tachycardic. Lungs clear bilat. Respirations even and non-labored. Abdomen soft, with positive tenderness to her epigastric area. Positive pedal pulses with no edema. Plan for OR this morning. Report given to Josué HERBERT Original Note: CT shows Acute appendicitis, possibly gangrenous. No abscess.
--- NOTE | 2024-12-06 08:13 | P.CONAN_ITS ---
FORMERLY [facility], [facility] Active Problems Active Problems: All Active Problems Acute appendicitis (Acute) Tobacco use disorder (Acute) Past Medical History Medical History Choledocholithiasis Tobacco use disorder Family History Family history of problems with anesthesia: No Surgical History Surgical History History of ERCP S/P cholecystectomy History of Problems with Anesthesia: No Social History Social History Household Members: Family Housing: Apartment Patient Tobacco Use Status: Current everyday Tobacco user Tobacco use type: Cigarette Cigarettes Per Day: 10 Smoked in Last 30 Days: No Second Hand Smoke Exposure: No Use of substances other than those prescribed or required for medical reasons: No Have you been hit, kicked, punched, or otherwise hurt by someone within the past year? If so, by whom?: No Are you DNR?: No Advance Directives: No Advance Directives Information Provided: No Advance Directives on File: No Do you have a plan to hurt others: No Plan Patient : No : No Poor oral hygiene: No service: No Meds Allergies Allergy/AdvReac Type Severity Reaction Status Date / Time No Known Allergies Allergy Verified 12/05/24 21:04 Active Medications: Current Medications Acetaminophen (Acetaminophen 325 Mg Tablet) 650 mg PO Q6H PRN PRN Reason: Pain, Mild 1-3,fever,headache Sodium Chloride (Ns) 1,000 mls @ 125 mls/hr IVCONT .Q8H [facility] Last Admin: 12/06/24 07:26 Dose: 125 mls/hr Piperacillin Sod/Tazobactam (Sod 3.375 gm/ Sodium Chloride) 50 mls @ 100 mls/hr IV RQ6H [facility] Last Infusion: 12/06/24 06:24 Dose: Infused Melatonin (Melatonin 3 Mg Tablet) 6 mg PO BEDTIME PRN PRN Reason: Insomnia Morphine Sulfate (Morphine Sulfate 4 Mg/Ml Cartridge) 3 mg IVPUSH Q4H PRN; Protocol PRN Reason: Pain, Severe (Pain Scale 7-10) Last Admin: 12/06/24 05:04 Dose: 3 mg Ondansetron HCl (Ondansetron Hcl 4 Mg/2 Ml Vial) 4 mg IVPUSH Q8H PRN PRN Reason: Nausea and Vomiting Sodium Chloride (0.9 % Sodium Chloride Flush 3 Ml Syringe) [facility] Last Admin: 12/06/24 00:05 Dose: 3 ml Home Medications ?Medication ?Instructions ?Recorded ?Confirmed ?Last Taken ?Type omeprazole 20 mg capsule,delayed 20 mg PO DAILY 04/27/23 04/27/23 Unknown History release Exam Height,Weight and Vital Signs: Height 5 ft 2 in Weight 88.9 kg Last Vital Signs Temp 100.8 F H 12/06/24 07:53 Pulse 114 H 12/06/24 07:53 Resp 16 12/06/24 07:53 BP 101/45 L 12/06/24 07:53 Pulse Ox 95 12/06/24 07:53 O2 Del Method Room Air 12/06/24 07:53 Pertinent Lab Results Pertinent Lab Results: Laboratory Tests 12/05/24 12/05/24 12/05/24 21:45 22:29 22:38 WBC 16.8 H RBC 4.47 Hgb 12.8 Hct 38.1 MCV 85.2 MCH 28.6 MCHC 33.6 RDW 12.2 Plt Count 320 MPV 9.9 Immature Gran % (Auto) 0.4 Neut % (Auto) 79.5 H Lymph % (Auto) 14.[address] [place] % (Auto) 4.4 Eos % (Auto) 0.9 Baso % (Auto) 0.4 Lymph # (Auto) 2.4 [facility] # (Auto) 0.7 Eos # (Auto) 0.2 Baso # (Auto) 0.1 Abs Immat Gran (auto) 0.06 H Absolute Neuts (auto) 13.4 H Absolute Nucleated RBC 0.000 Nucleated RBC % (auto) 0.0 Sodium 139 Potassium 4.1 Chloride 107 Carbon Dioxide 23 Anion Gap 13 BUN 12 Creatinine 0.68 Estim Creat Clear Calc 126.4 Estimated GFR > 60 Random Glucose 94 Lactic Acid Calcium 9.2 Magnesium 2.0 Total Bilirubin 0.3 AST 20 ALT 18 Alkaline Phosphatase 92 Troponin I High Sens < 2.7 Total Protein 7.3 Albumin 4.4 Lipase 9 Beta HCG, Quant < 2 Urine Color Yellow Urine Appearance Clear Urine pH 7.0 Ur Specific [place] 1.025 Urine Protein 30 (1+) H Urine Glucose (UA) Negative Urine Ketones Trace Urine Blood Negative Urine Nitrite Negative Ur Leukocyte Esterase Negative Urine RBC 0-2 Urine WBC 0-5 Ur Squamous Epith Cells 0-2 Urine Bacteria None Seen Hyaline Casts 3-5 Urine Test NEGATIVE Urine Opiates Screen Not Detected Ur Buprenorphine Scrn Not Detected Ur Oxycodone Screen Not Detected Urine Methadone Screen Not Detected Urine Fentanyl Screen POSITIVE H Ur Barbiturates Screen Not Detected Ur Phencyclidine Scrn Not Detected Ur Amphetamines Screen Not Detected U Benzodiazepines Scrn Not Detected Urine Cocaine Screen Not Detected U Marijuana (THC) Screen Not Detected 12/05/24 12/06/24 23:35 04:45 WBC 22.5 H RBC 4.50 Hgb 13.0 Hct 38.1 MCV 84.7 MCH 28.9 MCHC 34.1 RDW 12.3 Plt Count 282 MPV 10.7 Immature Gran % (Auto) 0.6 H Neut % (Auto) 85.9 H Lymph % (Auto) 7.[address] [place] % (Auto) 6.2 Eos % (Auto) 0.0 Baso % (Auto) 0.2 Lymph # (Auto) 1.6 [facility] # (Auto) 1.4 H Eos # (Auto) 0.0 Baso # (Auto) 0.1 Abs Immat Gran (auto) 0.14 H Absolute Neuts (auto) 19.3 H Absolute Nucleated RBC 0.000 Nucleated RBC % (auto) 0.0 Sodium 139 Potassium 4.4 Chloride 110 H Carbon Dioxide 18 L Anion Gap 15 BUN 11 Creatinine 0.66 Estim Creat Clear Calc 130.2 Estimated GFR > 60 Random Glucose 77 Lactic Acid 0.9 Calcium 8.7 Magnesium Total Bilirubin AST ALT Alkaline Phosphatase Troponin I High Sens Total Protein Albumin Lipase Beta HCG, Quant Urine Color Urine Appearance Urine pH Ur Specific [place]ain Urine Protein Urine Glucose (UA) Urine Ketones Urine Blood Urine Nitrite Ur Leukocyte Esterase Urine RBC Urine WBC Ur Squamous Epith Cells Urine Bacteria Hyaline Casts Urine Test Urine Opiates Screen Ur Buprenorphine Scrn Ur Oxycodone Screen Urine Methadone Screen Urine Fentanyl Screen Ur Barbiturates Screen Ur Phencyclidine Scrn Ur Amphetamines Screen U Benzodiazepines Scrn Urine Cocaine Screen U Marijuana (THC) Screen Airway Mallampati Class: II TM Dist: >3cm Neck ROM: Full Assessment and Plan Assessment Anesthesia Assessment: Anesthesia Plan Discussed and Chart Reviewed Final Anesthetic Review Family History of Problems with Anesthesia: No History of Problems with Anesthesia: No NPO: Yes ASA Class: II and Emergency Final Preanesthetic Review: No Changes in Pt Med Stat, Meds/Allgs Chart Reviewed, Consent Obtained/Reviewed and Anes Risks/Benef Reviewed Patient Risk: Low Procedure Risk: Intermediate Anesthetic Plan Anesthetic Plan: GA Disposition: Standard PACU
[2024-12-06] MEDS: Lactated Ringers 1,000 ML 80 ML IVCONT (09:14)
--- NOTE | 2024-12-06 10:21 | W.PM.OPN ---
Operative Note Operative Note Date of Service: 12/06/24 Narrative: Preop diagnosis: Acute appendicitis Postop diagnosis: Acute suppurative and gangrenous appendicitis, with localized peritonitis in the surrounding small bowel loops and sidewall Procedure: Laparoscopic appendectomy Surgeon: Erik Klein MD Professional Advisor: VARUN Sullivan The patient is a 29 year old female admitted overnight because of right-sided abdominal pain with CAT scan findings of acute appendicitis. He is markedly tender and had fever and tachycardia suggestive of sepsis. I therefore explained to her that we needed to do urgent laparoscopic appendectomy. She understood the technique of the procedure as well as the risks, benefits, and alternatives She was brought to the operating room. She was placed supine under general anesthesia via endotracheal tube. A Ledesma catheter was inserted. The abdomen was prepped and draped in usual sterile fashion. A surgical time-out was done. The patient was receiving scheduled IV antibiotics I made a short supraumbilical incision with a blade 15. This carried down through the full-thickness of the skin and subcutaneous fat. The patient was morbidly obese so we had to go through thick amounts of subcutaneous fat before we were able to reach the fascia. The fascia was incised. The peritoneum was entered. Through this incision a Betts port was introduced. Pneumoperitoneum was introduced to a pressure of 15 mm Hg and from here on the rest of procedure was done under vision with the laparoscope. We used a 10 mm 30 degree scope alternating with a 5 mm 30 degree scope Laparoscopic visualization I inserted a 5 mm port in the left lower quadrant as well as the suprapubic margin. The patient is placed in a steep head-down and [id number] position. Graspers were placed through the working ports. I reflected the bowel loops away from the right lower quadrant. The cecum was seen. By following the taenia I was able to visualize the base of the appendix. The rest of the appendix mid 3rd to the distal 3rd was very adherent to the sidewall. We had to do careful blunt dissection with the tip of the grasper as well as with the control inspector until was able to clearly expose the entire length of the appendix The appendix was markedly indurated, inflamed with some gangrene. There was note of surrounding localized peritonitis of the adjacent bowel loops and the sidewall. I proceeded to carefully dissect the mesoappendix with the LigaSure until was able to reach the base. The inflammatory process reach the base but this appeared viable. I applied an Endo-MILADIS powered 30 mm stapler across the base of the appendix as proximally as possible. The appendix was transected with a stapler. The appendix was retrieved through an endobag through the umbilical incision. I re-insufflated and irrigated the area of the right lower quadrant a little bit. There was note of purulent material in the pelvis which we suctioned out I observed all 4 quadrants. There was no evidence of any bowel injury or any other pathology I pulled the omentum down through the right lower quadrant but she had a very short omentum and this did not really reach done all the way to the pelvis I again observed for hemostasis and any her pathology. There was no evidence of any bleeding or any bowel injury I then positioned a 7 SATINDER drain at the right gutter adjacent to the appendectomy site all the way to the pelvis. This was brought out through the suprapubic incision I secured the SATINDER drain to the skin with a a nylon 3-0 anchoring stitch I removed all ports after desufflation. The fascia of the umbilical incision was closed with a [id number] Polysorb 0 stitch . I irrigated this incision. Skin closure was achieved on all incisions with Polysorb 4-0 subcuticular running stitch All incisions were infiltrated with Marcaine 0.5% for postop analgesia. Dressings were placed. The Ledesma catheter was removed. The procedure was completed The patient tolerated the procedure well. There were no immediate complications. Initial and final counts of sponges and instruments were correct. Estimated blood loss was about 25 cc The patient is extubated without difficulty and transferred to the recovery room with stable vital signs.
[2024-12-06] MEDS: fentaNYL citrate/PF 100 MCG/2 ML VIAL 50 MCG IVPUSH (10:55)
--- NOTE | 2024-12-06 12:24 | PC.NURSE ---
patient has hypoactive bowel sounds. patient educated to start slow with intake.
[2024-12-06] MEDS: oxyCODONE HCl Immed Release 5 MG TABLET PO ×2 (14:04→18:25)
--- NOTE | 2024-12-06 14:27 | MHC.CM.PN ---
PT REPORTS SHE LIVES WITH FAMILY AND IS INDEPENDENT WITH CARE SHE HAS NO DME OR SERVICES PTIS AWARE SHE CAME UP SELF PAY, SHE STATES SHE HAS MH AND UNDERSTANDS A REFERRAL WILL BE SENT TO [facility] AND THEY WILL CONTACT HER IF SOMETHING NEEDS TO BE DONE SHE DOES NOT HAVE A PCP AND DECLINES A HCP DCP: HOME NO SERVICES VIA PRIVATE TRANSPORT
--- NOTE | 2024-12-06 14:46 | PHA.MEDREC ---
Addendum entered by Terrie Rizvi RPh 12/06/24 14:56: Med rec was reviewed by Yamileth. Original Note: Pharmacy Consult ? Medication Reconciliation Pharmacy has completed the medication reconciliation. Patient states she is not on any medications.
--- NOTE | 2024-12-06 14:52 | PM.EVENT ---
Event Note Date of Service: 12/06/24 Event Note: Seen afternoon postop Status post lap appy this morning She had a gangrenous appendicitis Complains of pain on incisions and on the right side Vital signs stable Abdomen is soft SATINDER drain serosanguineous, scanty Continue IV antibiotics On clear liquids Pain management Time Spent With Patient Time: Total time managing care of this patient today ____ minutes.
[2024-12-06] MEDS: 0.9 % Sodium Chloride 1,000 ML 999 ML IV ×2 (15:57→21:24)
[2024-12-06] MEDS: Sucralfate 1 GM TABLET PO (16:54)
[2024-12-06] MEDS: Acetaminophen 1,000 MG/100 ML PIGGYBACK 400 MG IV ×2 (17:20→22:50)
[2024-12-06] MEDS: Docusate Sodium 100 MG CAPSULE PO (20:08)
[2024-12-06] MEDS: HYDROmorphone HCl 0.5 MG/0.5 ML SYRINGE IVPUSH (23:43)
[2024-12-07] VITALS (15 sets, daily range): BP systolic 84–103; BP diastolic 47–60; PULSE 45–71; RESP 16–20; TEMP 36.4–36.8; O2SAT 95–100
[2024-12-07] MEDS: Ketorolac Tromethamine 30 MG/ML VIAL IVPUSH ×4 (00:22→18:05)
[2024-12-07] MEDS: Acetaminophen 1,000 MG/100 ML PIGGYBACK 400 MG IV ×3 (04:35→15:51)
[2024-12-07] MEDS: 0.9 % Sodium Chloride 1,000 ML 125 ML IVCONT ×2 (04:44→12:31)
[2024-12-07] MEDS: Piperacillin Sodium/Tazobactam 3.375 GM in 0.9 % Sodium Chloride 50 ML IV ×4 (05:06→23:08)
[2024-12-07] MEDS: 0.9 % Sodium Chloride 1,000 ML 999 ML IV ×3 (05:50→11:13)
[2024-12-07] MEDS: Omeprazole 20 MG CAPSULE.DR PO (06:31)
[2024-12-07 06:51] LABS: MANUAL DIFF FLAG NO
[2024-12-07 06:59] LABS: Glucose, Whole Blood 101 mg/dL (60-115)
[2024-12-07 07:00] LABS: Basophils Absolute Auto 0.1 X10*3/uL (0.0-0.2); Basophils Percent Auto 0.3 % (0-2); Eosinophils Percent Auto 0.2 % (0-4); Hematocrit 32.5 % (37.0-47.0); Hemoglobin 10.7 g/dl (12.0-16.0); Imm Gran Pct Auto 0.5 % (0.0-0.4); Lymphocytes Absolute Auto 1.7 X10*3/uL (1.2-4.9); Lymphocytes Percent Auto 9.2 % (20-40); Mean Corpuscular HGB Conc 32.9 g/dl (31.0-35.0); Mean Corpuscular Hemoglobin 28.8 pg (27.0-33.0); Mean Corpuscular Volume 87.4 fL (80.0-98.0); Mean Platelet Volume 10.7 fL (9.4-12.3); Monocytes Absolute Auto 0.6 X10*3/uL (0.1-1.2); Monocytes Percent Auto 3.2 % (2-11); Neutrophils Absolute Auto 16.1 x10*3/uL (2.0-8.3); Neutrophils Percent Auto 86.6 % (45-73); Platelet Count 244 X10*3/uL (160-400); Red Blood Count 3.72 X10*6/uL (4.20-5.50); Red Cell Distribution Width 12.5 % (11.0-16.0); White Blood Count 18.6 X10*3/uL (4.8-10.8)
--- NOTE | 2024-12-07 07:08 | PM.EVENT ---
Event Note Date of Service: 12/07/24 Event Note: Rapid response was called 6:50 am for hypotension The patient has been running soft BP since admission with no tachycardia or tachypnea; not meeting sepsis criteria She feeling lightheaded, weak and reports abd pain She is alert, oriented with clear bilateral air entry and sinus rhythm. Abdomen is mildly tender with no surgical signs. trace lower extremities edema Likely dehydration from decreased oral intake and acute illness and possibly narcotic pain meds. To give 1 more liter of NS; received 2 boluses overnight Start Midodrine 5 mg tid for now To check an EKG Hb dropped to 10.7 from 13 which could be dilution related but will check a Stat CT Abd to rule out any possible bleeding. Will continue to monitor with you as needed. Time Spent With Patient Time: Total time managing care of this patient today ____ minutes.
[2024-12-07 07:12] LABS: Anion Gap 12 (12-20); Blood Urea Nitrogen 9 mg/dL (9-16); Calcium 8.1 mg/dL (8.4-10.2); Carbon Dioxide 21 mmol/L (22-29); Chloride 112 mmol/L (96-108); Creatinine Clr Calc Pharmacy 138.6; Estimated Glomerular Filt Rate > 60; Glucose Fasting 114 mg/dL (60-99); Potassium 3.5 mmol/L (3.3-5.1); Sodium 141 mmol/L (135-145)
[2024-12-07] MEDS: Midodrine HCl 5 MG TABLET PO ×3 (07:22→20:34)
[2024-12-07] MEDS: Sucralfate 1 GM TABLET PO ×2 (07:22→15:48)
--- NOTE | 2024-12-07 07:27 | PM.PNGS ---
Subjective Subjective Date of Service: 12/07/24 <Jn Lindsay PA-C - Last Filed: 12/07/24 09:50> 12/07/24 <Erik Klein MD - Last Filed: 12/07/24 09:54> Patient reports: flatus and fever <DIONNE Owusu Last Filed: 12/07/24 09:50> Interval history: Rapid response called at 6:50 for hypotension, patient found to be hypotensive overnight was given 2 bolus of NS. This morning BP dropped to 80s systolic. patient wasw given another bolus and started on midodrine 5 mg TID per hospitalist recommendation. No associated tachycardia or tachypnea. Patient not meeting sepsis protocol at this time Patient reports feeling dizzy, endorsing chills. Complains of mostly right sided severe abdominal pain. She reports this began yesterday after surgery and has lasted through the night without much relief. States she was able to tolerate clear liquids. Denies nausea or vomiting at this time. Reports passign flatus, denies bowel movement SATINDER output 35 mL overnight, serosanguinous <Jn Lindsay PA-C - Last Filed: 12/07/24 09:50> Physical Exam Vital Signs: Vital Signs: Last Vital Signs Temp 97.6 F 12/07/24 06:47 Pulse 69 12/07/24 06:47 Resp 16 12/07/24 06:47 BP 101/60 12/07/24 07:06 Pulse Ox 100 12/07/24 06:47 O2 Del Method Room Air 12/07/24 06:47 O2 Flow Rate 3 12/06/24 11:00 BMI result Body Mass Index 35.8 <Jn Lindsay PA-C - Last Filed: 12/07/24 09:50> Const: General: alert, awake and lethargic; No comfortable <DIONNE Owusu Last Filed: 12/07/24 09:50> Orientation/consciousness: patient oriented x3 and lethargic <DIONNE Owusu Last Filed: 12/07/24 09:50> Resp: Effort & Inspection: normal respiratory effort and able to speak in complete sentences <DIONNE Owusu Last Filed: 12/07/24 09:50> GI: Inspection: No distended and Yes incision <DIONNE Owusu Last Filed: 12/07/24 09:50> Palpation (GI): Soft to palpation, not firm, Tenderness to palpation present (GI) and not rigid <Jn Lindsay PA-C - Last Filed: 12/07/24 09:50> Percussion: Yes normal to percussion <Jn Lindsay PA-C - Last Filed: 12/07/24 09:50> Neuro: General: patient oriented x3 <Jn Lindsay PA-C - Last Filed: 12/07/24 09:50> Objective Data Active Medications Docusate Sodium (Docusate Sodium 100 Mg Capsule) 100 mg PO BID [facility] Last Admin: 12/06/24 20:08 Dose: 100 mg Documented By: LILI Hydromorphone HCl (Hydromorphone Hcl 0.5 Mg/0.5 Ml Syringe) 0.5 mg IVPUSH Q3H PRN; Protocol PRN Reason: Pain, Severe (Pain Scale 7-10) Last Admin: 12/06/24 23:43 Dose: 0.5 mg Documented By: MYLENE Sodium Chloride (Ns) 1,000 mls @ 125 mls/hr IVCONT .Q8H [facility] Last Admin: 12/07/24 04:44 Dose: 125 mls/hr Documented By: LILI Piperacillin Sod/Tazobactam (Sod 3.375 gm/ Sodium Chloride) 50 mls @ 100 mls/hr IV RQ6H [facility] Last Infusion: 12/07/24 05:52 Dose: Infused Documented By: LILI Acetaminophen (Ofirmev) 1,000 mg in 100 mls @ 400 mls/hr IV Q6H [facility] Last Infusion: 12/07/24 04:50 Dose: Infused Documented By: LILI Sodium Chloride (Ns) 1,000 mls @ 999 mls/hr IV .Q1H1M [facility] Stop: 12/07/24 08:15 Last Admin: 12/07/24 07:23 Dose: 999 mls/hr Documented By: RICK Ketorolac Tromethamine (Ketorolac Tromethamine 30 Mg/Ml Vial) 30 mg IVPUSH Q6H [facility] Last Admin: 12/07/24 06:31 Dose: 30 mg Documented By: LILI Melatonin (Melatonin 3 Mg Tablet) 6 mg PO BEDTIME PRN PRN Reason: Insomnia Midodrine (Midodrine Hcl 5 Mg Tablet) 5 mg PO TID [facility] Last Admin: 12/07/24 07:22 Dose: 5 mg Documented By: RICK Omeprazole (Omeprazole 20 Mg Capsule.Dr) 20 mg PO DAILY@0630 [facility] Last Admin: 12/07/24 06:31 Dose: 20 mg Documented By: LILI Ondansetron HCl (Ondansetron Hcl 4 Mg/2 Ml Vial) 4 mg IVPUSH Q8H PRN PRN Reason: Nausea and Vomiting Oxycodone HCl (Oxycodone Hcl Immed Release 5 Mg Tablet) 10 mg PO Q4H PRN PRN Reason: Pain, Moderate(Pain Scale 4-6) Sodium Chloride (0.9 % Sodium Chloride Flush 3 Ml Syringe) 3 ml IVFLUSH QSHIFT [facility] Last Admin: 12/06/24 23:44 Dose: 3 ml Documented By: MYLENE Sucralfate (Sucralfate 1 Gm Tablet) 1 gm PO BIDAC [facility] Last Admin: 12/07/24 07:22 Dose: 1 gm Documented By: RICK <Jn Lindsay PA-C - Last Filed: 12/07/24 09:50> Labs CBC & Chem 7: 12/07/24 06:00 12/07/24 06:00 <Jn Lindsay PA-C - Last Filed: 12/07/24 09:50> Labs: Laboratory Results - last 24 hr 12/07/24 12/07/24 06:00 06:55 MCV 87.4 MCH 28.8 MCHC 32.9 RDW 12.5 Plt Count 244 MPV 10.7 Immature Gran % (Auto) 0.5 H Neut % (Auto) 86.6 H Lymph % (Auto) 9.2 L [place] % (Auto) 3.2 Eos % (Auto) 0.2 Baso % (Auto) 0.3 Lymph # (Auto) 1.7 [place] # (Auto) 0.6 Eos # (Auto) 0.0 Baso # (Auto) 0.1 Abs Immat Gran (auto) 0.10 H Absolute Neuts (auto) 16.1 H Absolute Nucleated RBC 0.000 Nucleated RBC % (auto) 0.0 Anion Gap 12 Estim Creat Clear Calc 138.6 Estimated GFR > 60 POC Glucose 101 Fasting Glucose 114 H Calcium 8.1 L D <Jn Lindsay PA-C - Last Filed: 12/07/24 09:50> Microbiology Microbiology Results: Microbiology 12/05/24 23:43 Blood Culture - Preliminary Blood - Venous No growth after 24 hours. 12/05/24 23:43 Blood Culture - Preliminary Blood - Venous No growth after 24 hours. <Jn Lindsay PA-C - Last Filed: 12/07/24 09:50> Procedures Date of Service Date of Service: 12/07/24 <Jn Lindsay PA-C - Last Filed: 12/07/24 09:50> 12/07/24 <Erik Klein MD - Last Filed: 12/07/24 09:54> Progress Note: A&P Assessment and plan (1) S/P laparoscopic appendectomy: Status: Acute <Jn Lindsay PA-C - Last Filed: 12/07/24 09:50> Assessment and Plan: Had pain control issues overnight Was hypotensive this morning Given boluses Complains of pain on incisions so as the right side Abdomen is soft SATINDER drain serosanguineous, scanty Continue IV antibiotics Had some localized peritonitis so likely to have been septic IV fluids Keep on clear liquids Appreciate hospitalist follow-up WBC down Bicarb better Discussed with the Seen and examined independently <Erik Klein MD - Last Filed: 12/07/24 09:54> (2) Hypotension: Status: Acute <Jn Lindsay PA-C - Last Filed: 12/07/24 09:50> Assessment and Plan: 29 year old female POD1 s/p laparascopic appendectomy. She was intermittently hypotensive overnight, received 2 bolus of IVF overnight. This morning, a rapid response was called due to systolic BP in the 80s. Stat hospitalist consult was ordered, patient received another bolus of IVF, there was minimal response to fluids, she was started on midodrine 5 mg by hospitalist. BP improving We discussed possible etiologies, likely secondary to dehydration due to low oral intake yesterday, sepsis and post procedural hypotension. Not currently meeting sepsis protocol. She is not tachycardic or tachypnic. Hospitalist ordered repeat CT to asses for intraabdominal bleeding or leak from staple site. SATINDER output overnight 35 cc of serosanguinous fluid. No evidence of stool in the SATINDER. Staple leak unlikely at this time. She complains of chills, dizziness. Patient has been experiencing severe right sided abdominal pain that is not improving with medication. Continues to have abdominal pain at the incision site. abdomen is soft, nondistended. She was tolerating clear liquid diet last night. Denies N/V. patient is afebrile, non toxic appearing. Mild decrease in H/H, stable. Mild improvement in leukocytosis. continue IV ABX Continue IVF repeat imaging pending continue pain regimen Blood cultures pending Hospitalist consult appreciated, will continue to monitor BP respsone to fluids and midodrine recommend ambulation as tolerated Keep SATINDER in place, monitor output <Jn Lindsay PA-C - Last Filed: 12/07/24 09:50> Time Spent With Patient Time: Total time managing care of this patient today ____ minutes. <Jn Lindsay PA-C - Last Filed: 12/07/24 09:50> Quality Stroke Does the patient have a stroke diagnosis?: No <Jn Lindsay PA-C - Last Filed: 12/07/24 09:50> VTE Prior VTE?: No <Jn Lindsay PA-C - Last Filed: 12/07/24 09:50> VTE Risk Level:: Surgical - low <Jn Lindsay PA-C - Last Filed: 12/07/24 09:50> VTE Device Contraindication: N/A - Device Ordered <Jn Lindsay PA-C - Last Filed: 12/07/24 09:50> VTE Drug Contraindication: Treatment Not Indicated <Jn Lindsay PA-C - Last Filed: 12/07/24 09:50>
[2024-12-07] MEDS: Docusate Sodium 100 MG CAPSULE PO ×2 (07:52→20:34)
[2024-12-07] MEDS: oxyCODONE HCl Immed Release 5 MG TABLET 10 MG PO ×4 (07:52→23:05)
[2024-12-07 09:07] LABS: Troponin-I High Sensitivity < 2.7 ng/L (<3.5-17.0)
--- NOTE | 2024-12-07 10:16 | ECG_ITS ---
Test Reason : low BP Blood Pressure : */* mmHG Vent. Rate : 77 BPM Atrial Rate : 77 BPM P-R Int : 172 ms QRS Dur : 60 ms QT Int : 380 ms P-R-T Axes : 51 50 58 degrees QTcB Int : 430 ms Normal sinus rhythm Septal infarct , age undetermined Abnormal ECG When compared with ECG of 05-Dec-2024 21:35, Septal infarct is now Present Referred By: Herminio Calero Electronically Signed By: NIKA BHAT MD
--- NOTE | 2024-12-07 10:24 | MHC.CM.PN ---
PT NOT YET CLEARED TO DC, IVF AND ABX CONTINUED DCP: HOME NO SERVICES VIA PRIVATE TRANSPORT
[2024-12-07] MEDS: ondansetron HCL 4 MG/2 ML VIAL IVPUSH ×2 (10:30→20:41)
--- NOTE | 2024-12-07 14:54 | PM.EVENT ---
Event Note Date of Service: 12/07/24 Event Note: States she feels better this afternoon Looks a lot more comfortable Abdomen is soft No fever SATINDER drain serosanguineous Continue antibiotics Pain management Much improved Time Spent With Patient Time: Total time managing care of this patient today ____ minutes.
[2024-12-07 21:03] LABS: MANUAL DIFF FLAG NO
[2024-12-07 21:05] LABS: Basophils Percent Auto 0.2 % (0-2); Eosinophils Absolute Auto 0.1 X10*3/uL (0.0-0.4); Eosinophils Percent Auto 0.9 % (0-4); Hematocrit 29.8 % (37.0-47.0); Hemoglobin 10.2 g/dl (12.0-16.0); Imm Gran Abs Auto 0.04 X10*3/uL (0.00-0.03); Imm Gran Pct Auto 0.3 % (0.0-0.4); Lymphocytes Absolute Auto 3.4 X10*3/uL (1.2-4.9); Lymphocytes Percent Auto 26.6 % (20-40); Mean Corpuscular HGB Conc 34.2 g/dl (31.0-35.0); Mean Corpuscular Hemoglobin 29.4 pg (27.0-33.0); Mean Corpuscular Volume 85.9 fL (80.0-98.0); Mean Platelet Volume 10.3 fL (9.4-12.3); Monocytes Absolute Auto 0.7 X10*3/uL (0.1-1.2); Monocytes Percent Auto 5.2 % (2-11); Neutrophils Absolute Auto 8.6 x10*3/uL (2.0-8.3); Neutrophils Percent Auto 66.8 % (45-73); Platelet Count 254 X10*3/uL (160-400); Red Blood Count 3.47 X10*6/uL (4.20-5.50); White Blood Count 12.9 X10*3/uL (4.8-10.8)
[2024-12-07 21:23] LABS: Lactic Acid 0.8 mmol/L (0.5-2.0)
[2024-12-07 21:33] LABS: Alanine Aminotransferase 21 U/L (0-31); Albumin Level 3.2 g/dL (3.5-5.0); Alkaline Phosphatase 57 U/L (39-117); Anion Gap 10 (12-20); Aspartate Amino Transferase 32 U/L (5-31); Bilirubin Total 0.3 mg/dL (0.0-1.0); Blood Urea Nitrogen 10 mg/dL (9-16); Calcium 8.1 mg/dL (8.4-10.2); Carbon Dioxide 21 mmol/L (22-29); Chloride 115 mmol/L (96-108); Estimated Glomerular Filt Rate > 60; Glucose Random 77 mg/dL (60-115); Potassium 3.8 mmol/L (3.3-5.1); Sodium 142 mmol/L (135-145); Total Protein 5.9 g/dL (6.5-8.0)
[2024-12-07] MEDS: 0.9 % Sodium Chloride 1,000 ML 80 ML IVCONT (23:04)
[2024-12-07] MEDS: 0.9 % Sodium Chloride Flush 3 ML SYRINGE IVFLUSH (23:08)
[2024-12-08] VITALS (7 sets, daily range): BP systolic 99–126; BP diastolic 51–62; PULSE 50–76; RESP 12–18; TEMP 36.7–37.1; O2SAT 93–99
[2024-12-08] MEDS: Ketorolac Tromethamine 30 MG/ML VIAL IVPUSH ×4 (01:05→18:27)
[2024-12-08] MEDS: Acetaminophen 1,000 MG/100 ML PIGGYBACK 400 MG IV ×4 (05:03→21:58)
[2024-12-08] MEDS: Omeprazole 20 MG CAPSULE.DR PO (05:07)
[2024-12-08] MEDS: Sucralfate 1 GM TABLET PO ×2 (06:41→15:30)
[2024-12-08] MEDS: Piperacillin Sodium/Tazobactam 3.375 GM in 0.9 % Sodium Chloride 50 ML IV ×3 (06:41→18:29)
[2024-12-08 07:47] LABS: MANUAL DIFF FLAG NO
[2024-12-08 07:51] LABS: Basophils Percent Auto 0.2 % (0-2); Basophils Percent Auto 0.4 % (0-2); Eosinophils Absolute Auto 0.1 X10*3/uL (0.0-0.4); Eosinophils Percent Auto 1.3 % (0-4); Eosinophils Percent Auto 1.4 % (0-4); Hematocrit 27.8 % (37.0-47.0); Hemoglobin 9.4 g/dl (12.0-16.0); Hemoglobin 9.5 g/dl (12.0-16.0); Imm Gran Abs Auto 0.03 X10*3/uL (0.00-0.03); Imm Gran Abs Auto 0.04 X10*3/uL (0.00-0.03); Imm Gran Pct Auto 0.4 % (0.0-0.4); Imm Gran Pct Auto 0.5 % (0.0-0.4); Lymphocytes Absolute Auto 3.2 X10*3/uL (1.2-4.9); Lymphocytes Absolute Auto 3.3 X10*3/uL (1.2-4.9); Mean Corpuscular HGB Conc 33.8 g/dl (31.0-35.0); Mean Corpuscular HGB Conc 33.9 g/dl (31.0-35.0); Mean Corpuscular Hemoglobin 29.2 pg (27.0-33.0); Mean Corpuscular Hemoglobin 29.3 pg (27.0-33.0); Mean Corpuscular Volume 86.2 fL (80.0-98.0); Mean Corpuscular Volume 86.6 fL (80.0-98.0); Mean Platelet Volume 10.5 fL (9.4-12.3); Monocytes Absolute Auto 0.4 X10*3/uL (0.1-1.2); Monocytes Percent Auto 4.5 % (2-11); Monocytes Percent Auto 4.6 % (2-11); Neutrophils Absolute Auto 4.8 x10*3/uL (2.0-8.3); Neutrophils Percent Auto 55.5 % (45-73); Neutrophils Percent Auto 56.2 % (45-73); Platelet Count 237 X10*3/uL (160-400); Platelet Count 244 X10*3/uL (160-400); Red Blood Count 3.21 X10*6/uL (4.20-5.50); Red Blood Count 3.25 X10*6/uL (4.20-5.50); Red Cell Distribution Width 12.9 % (11.0-16.0); White Blood Count 8.5 X10*3/uL (4.8-10.8); White Blood Count 8.7 X10*3/uL (4.8-10.8)
[2024-12-08 08:09] LABS: Anion Gap 9 (12-20); Blood Urea Nitrogen 10 mg/dL (9-16); Calcium 7.9 mg/dL (8.4-10.2); Carbon Dioxide 20 mmol/L (22-29); Chloride 115 mmol/L (96-108); Creatinine Clr Calc Pharmacy 119.4; Estimated Glomerular Filt Rate > 60; Glucose Random 69 mg/dL (60-115); Potassium 3.4 mmol/L (3.3-5.1); Sodium 141 mmol/L (135-145)
[2024-12-08] MEDS: Midodrine HCl 5 MG TABLET PO ×3 (08:39→20:49)
[2024-12-08] MEDS: oxyCODONE HCl Immed Release 5 MG TABLET PO ×2 (08:40→23:18)
[2024-12-08] MEDS: Docusate Sodium 100 MG CAPSULE PO ×2 (08:40→20:49)
[2024-12-08] MEDS: 0.9 % Sodium Chloride 1,000 ML 80 ML IVCONT (08:42)
--- NOTE | 2024-12-08 10:13 | PM.PNGS ---
Subjective Subjective Date of Service: 12/08/24 Interval history: feels much better pain much improved tolerating clears no fever Physical Exam Vital Signs: Vital Signs: Last Vital Signs Temp 98.1 F 12/08/24 07:33 Pulse 62 12/08/24 07:33 Resp 12 12/08/24 07:33 BP 108/56 L 12/08/24 08:39 Pulse Ox 93 12/08/24 07:33 O2 Del Method Room Air 12/08/24 07:33 O2 Flow Rate 3 12/06/24 11:00 BMI result Body Mass Index 35.8 Const: General: comfortable and no acute distress Resp: Effort & Inspection: normal respiratory effort Cardio: Rate: regular rate GI: Other: incisions clean and dry, SATINDER drain, scanty thin serosanguinous output Palpation (GI): Soft to palpation, not firm and no guarding Objective Data Active Medications Docusate Sodium (Docusate Sodium 100 Mg Capsule) 100 mg PO BID [facility] Last Admin: 12/08/24 08:40 Dose: 100 mg Documented By: BRYANNA Hydromorphone HCl (Hydromorphone Hcl 0.5 Mg/0.5 Ml Syringe) 0.5 mg IVPUSH Q3H PRN; Protocol PRN Reason: Pain, Severe (Pain Scale 7-10) Last Admin: 12/06/24 23:43 Dose: 0.5 mg Documented By: MYLENE Sodium Chloride (Ns) 1,000 mls @ 80 mls/hr IVCONT .[id number] [facility] Last Admin: 12/08/24 08:42 Dose: 80 mls/hr Documented By: BRYANNA Piperacillin Sod/Tazobactam (Sod 3.375 gm/ Sodium Chloride) 50 mls @ 100 mls/hr IV RQ6H [facility] Last Infusion: 12/08/24 07:11 Dose: Infused Documented By: BRYANNA Acetaminophen (Ofirmev) 1,000 mg in 100 mls @ 400 mls/hr IV Q6H [facility] Last Infusion: 12/08/24 05:36 Dose: Infused Documented By: LILI Ketorolac Tromethamine (Ketorolac Tromethamine 30 Mg/Ml Vial) 30 mg IVPUSH Q6H [facility] Last Admin: 12/08/24 06:41 Dose: 30 mg Documented By: LILI Melatonin (Melatonin 3 Mg Tablet) 6 mg PO BEDTIME PRN PRN Reason: Insomnia Midodrine (Midodrine Hcl 5 Mg Tablet) 5 mg PO TID [facility] Last Admin: 12/08/24 08:39 Dose: 5 mg Documented By: BRYANNA Omeprazole (Omeprazole 20 Mg Capsule.Dr) 20 mg PO DAILY@0630 [facility] Last Admin: 12/08/24 05:07 Dose: 20 mg Documented By: LILI Ondansetron HCl (Ondansetron Hcl 4 Mg/2 Ml Vial) 4 mg IVPUSH Q8H PRN PRN Reason: Nausea and Vomiting Last Admin: 12/07/24 20:41 Dose: 4 mg Documented By: LILI Oxycodone HCl (Oxycodone Hcl Immed Release 5 Mg Tablet) 5 mg PO Q6H PRN PRN Reason: Pain, Moderate(Pain Scale 4-6) Last Admin: 12/08/24 08:40 Dose: 5 mg Documented By: BRYANNA Sodium Chloride (0.9 % Sodium Chloride Flush 3 Ml Syringe) 3 ml IVFLUSH QSHIFT [facility] Last Admin: 12/08/24 08:42 Dose: Not Given Documented By: BRYANNA Non-Admin Reason: IV Running Sucralfate (Sucralfate 1 Gm Tablet) 1 gm PO BIDAC [facility] Last Admin: 12/08/24 06:41 Dose: 1 gm Documented By: LILI Labs 12/08/24 07:18 12/08/24 07:18 Labs: Laboratory Results - last 24 hr 12/07/24 12/08/24 12/08/24 20:56 07:18 07:18 MCV 85.9 86.2 86.6 MCH 29.4 29.2 MCHC 34.2 RDW 13.0 Plt Count 254 MPV 10.3 Immature Gran % (Auto) 0.3 Neut % (Auto) 66.8 Lymph % (Auto) 26.6 [place] % (Auto) 5.2 Eos % (Auto) 0.9 Baso % (Auto) 0.2 Lymph # (Auto) 3.4 [place] # (Auto) 0.7 Eos # (Auto) 0.1 Baso # (Auto) 0.0 Abs Immat Gran (auto) 0.04 H Absolute Neuts (auto) 8.6 H Absolute Nucleated RBC 0.000 Nucleated RBC % (auto) 0.0 Anion Gap 10 L Estim Creat Clear Calc 121.0 Estimated GFR > 60 Random Glucose 77 Lactic Acid 0.8 Calcium 8.1 L Total Bilirubin 0.3 AST 32 H ALT 21 Alkaline Phosphatase 57 Total Protein 5.9 L Albumin 3.2 L 12/08/24 12/08/24 12/08/24 07:18 07:18 07:18 MCV MCH 29.3 MCHC 33.9 33.8 RDW 13.0 12.9 Plt Count 244 MPV Immature Gran % (Auto) Neut % (Auto) Lymph % (Auto) [place] % (Auto) Eos % (Auto) Baso % (Auto) Lymph # (Auto) [place] # (Auto) Eos # (Auto) Baso # (Auto) Abs Immat Gran (auto) Absolute Neuts (auto) Absolute Nucleated RBC Nucleated RBC % (auto) Anion Gap Estim Creat Clear Calc Estimated GFR Random Glucose Lactic Acid Calcium Total Bilirubin AST ALT Alkaline Phosphatase Total Protein Albumin 12/08/24 12/08/24 12/08/24 07:18 07:18 07:18 MCV MCH MCHC RDW Plt Count 237 MPV 10.5 10.5 Immature Gran % (Auto) 0.5 H 0.4 Neut % (Auto) 55.5 Lymph % (Auto) [place] % (Auto) Eos % (Auto) Baso % (Auto) Lymph # (Auto) [place] # (Auto) Eos # (Auto) Baso # (Auto) Abs Immat Gran (auto) Absolute Neuts (auto) Absolute Nucleated RBC Nucleated RBC % (auto) Anion Gap Estim Creat Clear Calc Estimated GFR Random Glucose Lactic Acid Calcium Total Bilirubin AST ALT Alkaline Phosphatase Total Protein Albumin 12/08/24 12/08/24 12/08/24 07:18 07:18 07:18 MCV MCH MCHC RDW Plt Count MPV Immature Gran % (Auto) Neut % (Auto) 56.2 Lymph % (Auto) 38.0 37.0 [place] % (Auto) 4.5 4.6 Eos % (Auto) 1.3 Baso % (Auto) Lymph # (Auto) [place] # (Auto) Eos # (Auto) Baso # (Auto) Abs Immat Gran (auto) Absolute Neuts (auto) Absolute Nucleated RBC Nucleated RBC % (auto) Anion Gap Estim Creat Clear Calc Estimated GFR Random Glucose Lactic Acid Calcium Total Bilirubin AST ALT Alkaline Phosphatase Total Protein Albumin 12/08/24 12/08/24 12/08/24 07:18 07:18 07:18 MCV MCH MCHC RDW Plt Count MPV Immature Gran % (Auto) Neut % (Auto) Lymph % (Auto) [place] % (Auto) Eos % (Auto) 1.4 Baso % (Auto) 0.2 0.4 Lymph # (Auto) 3.3 3.2 [place] # (Auto) 0.4 Eos # (Auto) Baso # (Auto) Abs Immat Gran (auto) Absolute Neuts (auto) Absolute Nucleated RBC Nucleated RBC % (auto) Anion Gap Estim Creat Clear Calc Estimated GFR Random Glucose Lactic Acid Calcium Total Bilirubin AST ALT Alkaline Phosphatase Total Protein Albumin 12/08/24 12/08/24 12/08/24 07:18 07:18 07:18 MCV MCH MCHC RDW Plt Count MPV Immature Gran % (Auto) Neut % (Auto) Lymph % (Auto) [place] % (Auto) Eos % (Auto) Baso % (Auto) Lymph # (Auto) [place] # (Auto) 0.4 Eos # (Auto) 0.1 0.1 Baso # (Auto) 0.0 0.0 Abs Immat Gran (auto) 0.04 H Absolute Neuts (auto) Absolute Nucleated RBC Nucleated RBC % (auto) Anion Gap Estim Creat Clear Calc Estimated GFR Random Glucose Lactic Acid Calcium Total Bilirubin AST ALT Alkaline Phosphatase Total Protein Albumin 12/08/24 12/08/24 12/08/24 07:18 07:18 07:18 MCV MCH MCHC RDW Plt Count MPV Immature Gran % (Auto) Neut % (Auto) Lymph % (Auto) [place] % (Auto) Eos % (Auto) Baso % (Auto) Lymph # (Auto) [place] # (Auto) Eos # (Auto) Baso # (Auto) Abs Immat Gran (auto) 0.03 Absolute Neuts (auto) 4.8 4.8 Absolute Nucleated RBC 0.000 0.000 Nucleated RBC % (auto) 0.0 Anion Gap Estim Creat Clear Calc Estimated GFR Random Glucose Lactic Acid Calcium Total Bilirubin AST ALT Alkaline Phosphatase Total Protein Albumin 12/08/24 07:18 MCV MCH MCHC RDW Plt Count MPV Immature Gran % (Auto) Neut % (Auto) Lymph % (Auto) [place] % (Auto) Eos % (Auto) Baso % (Auto) Lymph # (Auto) [place] # (Auto) Eos # (Auto) Baso # (Auto) Abs Immat Gran (auto) Absolute Neuts (auto) Absolute Nucleated RBC Nucleated RBC % (auto) 0.0 Anion Gap 9 L Estim Creat Clear Calc 119.4 Estimated GFR > 60 Random Glucose 69 Lactic Acid Calcium 7.9 L Total Bilirubin AST ALT Alkaline Phosphatase Total Protein Albumin Microbiology Microbiology Results: Microbiology 12/05/24 23:43 Blood Culture - Preliminary Blood - Venous No growth after 48 hours. 12/05/24 23:43 Blood Culture - Preliminary Blood - Venous No growth after 48 hours. Procedures Date of Service Date of Service: 12/08/24 Progress Note: A&P Assessment and plan (1) Acute appendicitis: Status: Acute Assessment and Plan: s/p appy, with gangrene, pus and localized peritonitis WBC down drop in Hg likely dilutional - got a lot of IVF clinically much improved regular diet IV abx poss home tomorrow - possibly remove SATINDER drain at bedside Time Spent With Patient Time: Total time managing care of this patient today ____ minutes. Quality Stroke Does the patient have a stroke diagnosis?: No VTE Prior VTE?: No VTE Risk Level:: Surgical - low VTE Device Contraindication: N/A - Device Ordered VTE Drug Contraindication: Treatment Not Indicated
[2024-12-09] MEDS: Ketorolac Tromethamine 30 MG/ML VIAL IVPUSH ×2 (00:22→06:18)
[2024-12-09] MEDS: Piperacillin Sodium/Tazobactam 3.375 GM in 0.9 % Sodium Chloride 50 ML IV ×2 (00:23→06:18)
[2024-12-09] MEDS: 0.9 % Sodium Chloride 1,000 ML 80 ML IVCONT (00:23)
[2024-12-09 03:35] VITALS: BP 98/54; PULSE 62; RESP 18; TEMP 37.4; O2SAT 94
[2024-12-09] MEDS: Acetaminophen 1,000 MG/100 ML PIGGYBACK 400 MG IV (03:35)
[2024-12-09] MEDS: Omeprazole 20 MG CAPSULE.DR PO (06:18)
[2024-12-09 07:43] VITALS: BP 111/62; PULSE 59; RESP 12; TEMP 36.7; O2SAT 96
[2024-12-09] MEDS: Midodrine HCl 5 MG TABLET PO (08:06)
[2024-12-09] MEDS: Docusate Sodium 100 MG CAPSULE PO (08:06)
[2024-12-09] MEDS: Sucralfate 1 GM TABLET PO (08:06)
--- NOTE | 2024-12-09 09:05 | MHC.CM.PN ---
pt dcd home self care
--- NOTE | 2024-12-09 09:40 | PM.PNGS ---
Subjective Subjective Date of Service: 12/10/24 Interval history: Has had no fever Tolerating diet well Passing flatus Pain level much improved and well controlled Physical Exam Vital Signs: Vital Signs: Last Vital Signs Temp 98.0 F 12/09/24 07:43 Pulse 59 12/09/24 07:43 Resp 12 12/09/24 07:43 BP 111/62 12/09/24 07:43 Pulse Ox 96 12/09/24 07:43 O2 Del Method Room Air 12/09/24 07:43 O2 Flow Rate 3 12/06/24 11:00 BMI result Body Mass Index 35.8 Const: General: comfortable and no acute distress Resp: Effort & Inspection: normal respiratory effort Cardio: Rate: regular rate GI: Other: Incisions clean and dry, SATINDER drains scanty, thin serosanguineous Palpation (GI): Soft to palpation, not firm and no guarding Objective Data Active Medications Docusate Sodium (Docusate Sodium 100 Mg Capsule) 100 mg PO BID [facility] Last Admin: 12/09/24 08:06 Dose: 100 mg Documented By: BRYANNA Hydromorphone HCl (Hydromorphone Hcl 0.5 Mg/0.5 Ml Syringe) 0.5 mg IVPUSH Q3H PRN; Protocol PRN Reason: Pain, Severe (Pain Scale 7-10) Last Admin: 12/06/24 23:43 Dose: 0.5 mg Documented By: MYLENE Sodium Chloride (Ns) 1,000 mls @ 80 mls/hr IVCONT .[id number] [facility] Last Admin: 12/09/24 00:23 Dose: 80 mls/hr Documented By: DARSHANA Piperacillin Sod/Tazobactam (Sod 3.375 gm/ Sodium Chloride) 50 mls @ 100 mls/hr IV RQ6H [facility] Last Infusion: 12/09/24 07:02 Dose: Infused Documented By: DARSHANA Acetaminophen (Ofirmev) 1,000 mg in 100 mls @ 400 mls/hr IV Q6H [facility] Last Infusion: 12/09/24 03:50 Dose: Infused Documented By: DARSHANA Ketorolac Tromethamine (Ketorolac Tromethamine 30 Mg/Ml Vial) 30 mg IVPUSH Q6H [facility] Last Admin: 12/09/24 06:18 Dose: 30 mg Documented By: DARSHANA Melatonin (Melatonin 3 Mg Tablet) 6 mg PO BEDTIME PRN PRN Reason: Insomnia Midodrine (Midodrine Hcl 5 Mg Tablet) 5 mg PO TID [facility] Last Admin: 12/09/24 08:06 Dose: 5 mg Documented By: BRYANNA Omeprazole (Omeprazole 20 Mg Capsule.Dr) 20 mg PO DAILY@0630 [facility] Last Admin: 12/09/24 06:18 Dose: 20 mg Documented By: DARSHANA Ondansetron HCl (Ondansetron Hcl 4 Mg/2 Ml Vial) 4 mg IVPUSH Q8H PRN PRN Reason: Nausea and Vomiting Last Admin: 12/07/24 20:41 Dose: 4 mg Documented By: ROSIBEL-CONNLuz Marina Oxycodone HCl (Oxycodone Hcl Immed Release 5 Mg Tablet) 5 mg PO Q6H PRN PRN Reason: Pain, Moderate(Pain Scale 4-6) Last Admin: 12/08/24 23:18 Dose: 5 mg Documented By: DARSHANA Sodium Chloride (0.9 % Sodium Chloride Flush 3 Ml Syringe) 3 ml IVFLUSH QSHIFT [facility] Last Admin: 12/09/24 08:10 Dose: Not Given Documented By: BRYANNA Non-Admin Reason: IV Running Sucralfate (Sucralfate 1 Gm Tablet) 1 gm PO BIDAC [facility] Last Admin: 12/09/24 08:06 Dose: 1 gm Documented By: BRYANNA Labs 12/08/24 07:18 12/08/24 07:18 Procedures Date of Service Date of Service: 12/10/24 Progress Note: A&P Assessment and plan (1) S/P laparoscopic appendectomy: Status: Acute Assessment and Plan: Clinically looks well I removed her SATINDER drain With GI functions She says she is ready to be discharged Oral antibiotics Pain meds Discharge instructions reinforced with patient and will be seen in the office for follow-up Time Spent With Patient Time: Total time managing care of this patient today ____ minutes. Quality Stroke Does the patient have a stroke diagnosis?: No VTE Prior VTE?: No VTE Risk Level:: Surgical - low VTE Device Contraindication: N/A - Device Ordered VTE Drug Contraindication: Treatment Not Indicated
[2024-12-09 10:53] VITALS: BP 122/57; PULSE 66; RESP 16; TEMP 37; O2SAT 96
--- NOTE | 2024-12-09 11:42 | PM.DS ---
DS: Providers Provider Date of Service: 12/09/24 Date of admission: 12/05/24 23:48 Date of discharge: 12/09/24 Primary care physician: Unknown Physician Attending physician on admission: Milka Morocho Consults: 12/07/24 07:11 Consult to Hospitalist Stat Comment: Consulting Provider: [facility] Hospitalists Reason For Exam: hypotension Attending physician on discharge: Erik Klein DS: Diagnosis Discharge Diagnosis (1) S/P laparoscopic appendectomy: Status: Acute DS: Summary Hospital Course Hospital Course: HPI AT ADMISSION: Leann Mccoy is a 29 year old female s/p cholecystectomy, with a pmhx significant for hypothyroidism, tobacco use disorder presenting with RLQ abdominal pain that started yesterday. Reports it continued to get worse. She was experiencing nausea and vomiting, she was unable to tolerate any food. She states shes had similar pain like this when she had to have her gallbladder removed. She denies fever at home. Reports bowel habits have been normal for her over the past few days. Patient denies any current daily medications. 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 She endorses cigarette use, denies alcohol and recreational drug use. On CT scan, patient was found to have a proximal appendicolith with surrounding inflammatory changes and appendiceal dilation, findings are consistent with acute appendicitis with possible gangrene, without abscess formation. Evidence of leukocytosis on intial ED labs, repeat labs this morning show worsening leukocytosis, now 22.5. She was started on IV zosyn and IVF in the ED. She has been NPO since her last meal in the morning on 12/05/24. HOSPITAL COURSE: The patient was admitted to the surgical service for further treatment of the acute appendicitis. Treatment options were discussed and she elected to proceed with laparoscopic appendectomy. She was added onto the OR schedule for that day. On 12/06/24, a laparoscopic appendectomy was performed by Dr. Klein without complication. She was found to have acute suppurative and gangrenous appendicitis, with localized peritonitis in the surrounding small bowel loops and sidewall. The patient tolerated the procedure well. She had a slow recovery course. Zosyn was continued following the procedure due to the gangrenous appendix. She was kept on clear liquids following due to the peritonitis. She had difficulty with referred pain post operatively and hypotension overnight likely due to volume depletion, anesthesia and analgesics. This improved following multiple fluid boluses. Hospitalist consult was obtained for assessment/management. They ordered f/u CT scan which showed post operative changes, hematoma, fluid collection. She continued to improve symptomatically following fluid resuscitation. Her WBC count significantly downtrended. Her diet was advanced. She was ambulated, her pain improved. On the day of discharge, she felt well and was tolerating a solid diet without nausea or vomiting, had good pain control and was ambulating without difficulty. She was hemodynamically stable and afebrile. Her abdomen was benign with appropriate post op tenderness and clean incisions. Her SATINDER drain had scant serosanguineous output and was removed. She felt ready for discharge. She was discharged to home on 12/09/24 in stable condition on a course of oral Augmentin. She is to follow up in the office in 2 weeks. Status at Discharge Functional status at discharge: independent ambulation Overall status at discharge: patient is progressing back to baseline Time Attestation Discharge Coordination Time (in mins): 35 Quality: Safe Use of Opioids Does Pt have an Active Cancer Diagnosis on the Problem List?: No Quality: Stroke Does the patient have a stroke diagnosis?: No Physical Exam Vital Signs: Vital Signs: Last Vital Signs Temp 98.6 F 12/09/24 10:53 Pulse 66 12/09/24 10:53 Resp 16 12/09/24 10:53 BP 122/57 L 12/09/24 10:53 Pulse Ox 96 12/09/24 10:53 O2 Del Method Room Air 12/09/24 10:53 O2 Flow Rate 3 12/06/24 11:00 BMI result Body Mass Index 35.8 Const: Orientation/consciousness: patient oriented x3 GI: Other: SATINDER drain scant thin serosanguineous output, removed Inspection: Yes incision (clean) Palpation (GI): Soft to palpation and no guarding Neuro: General: patient oriented x3 DS: Data Data Completed and Pending Completed studies during hospitalization [Text1]: 12/06/24 10:04 Surgical [PTH] Routine Vermiform appendix, appendectomy: Suppurative appendicitis and periappendicitis Procedures Dilation of Common Bile Duct with Intraluminal Device, Via Natural or Artificial Opening Endoscopic (04/27/23) Excision of Stomach, Pylorus, Via Natural or Artificial Opening Endoscopic, Diagnostic (04/27/23) Extirpation of Matter from Common Bile Duct, Via Natural or Artificial Opening Endoscopic (04/27/23) Fluoroscopy of Bile Ducts using Low Osmolar Contrast (04/27/23) Removal of Intraluminal Device from Hepatobiliary Duct, Percutaneous Endoscopic Approach (04/27/23) Labs on day of discharge: Preliminary micro results at discharge 12/05/24 23:43 Blood Culture - Preliminary Blood - Venous No growth after 48 hours. 12/05/24 23:43 Blood Culture - Preliminary Blood - Venous No growth after 48 hours. Discharge Plan Discharge Anticipated Discharge Date/Time: 12/09/24 14:14 Patient Disposition: Home, Self-Care Discharge Diagnosis: acute gangrenous appendicitis, s/p laparoscopic appendectomy Referrals: Erik Klein MD [Physician] - 2 Weeks Physician,Spring J [Primary Care Provider] - 1 Week Discharge Medications: New oxycodone-acetaminophen 5-325 mg tablet 1 tab PO Q6H PRN (Reason: pain) Qty: 20 0RF Rx Instructions: Partial Fill upon patient request. ibuprofen 600 mg tablet 600 mg PO Q6H PRN (Reason: pain) Qty: 30 0RF amoxicillin-pot clavulanate 875-125 mg tablet 1 tab PO BID Qty: 8 0RF Discharge Orders: Discharge Order (Routine); Ordered 12/09/24 Ordered By: Erik Klein Diet: Advance to usual diet Activity on Discharge: No heavy lifting Stand Alone Forms: Patient Portal Discharge page Print Language: Mongolian Activity Restrictions/Additional Instructions: If the incision area is tender, you may apply an ice pack for short intervals (No more than 20 minutes on, followed by at least 20 minutes off). Do not apply heat. Do not use creams, lotions, or topical antibiotics. These can cause infection or allergic reaction. Ok to shower. You have steri strips (small white cloth strips) covering your incision- these will fall off ~1 week. Drain site may have some yellow/pink tinged drainage while it remains open, this is normal. Keep covered until site closes. Follow up in office with Dr. Klein in 2 weeks. ([phone]) No heavy lifting (>10-20lbs) or strenuous activity! Call Your Doctor If: -Your temperature exceeds 101.5? F -You experience excessive pain or swelling -You have an unexpected reaction to medication -You have excessive bleeding -You experience continued vomiting/nausea -Your incision begins to separate -Your incision shows signs of infection such as increased redness, swelling, excessive pain, drainage (light blood or clear fluid is normal) or heat Care Plan Goals: Return to baseline health and resume normal activities following recovery period. Health Concerns: acute gangrenous appendicitis hypotension Plan of Treatment: s/p laparoscopic appendectomy IVF resuscitation f/u in office in 2 weeks IV transitioned to oral antibiotics Assessment: Improved Discharge Date/Time: 12/09/24 10:44
--- NOTE | 2024-12-10 11:20 | HO.POSTANES ---
Post Anesthesia Evaluation Post Anesthesia Evaluation Date of Service: 12/06/24 Anesthesia: General Endotracheal-GETA Mental Status: Awake Pain Control: Satisfactory Nausea/Vomiting: None Hydration: Adequate Anesthesia-Related Issues: No Anes. Related Issues
== END 2024-12-09 10:44 | disposition home or self-care (01) | DRG 233 ==
LOC: HO.ED 21:57 → HO.EDOVER 12-06 00:12 → HO.S3 12-06 07:54
PROVIDERS: Internal Medicine; Physician Assistant Surgical; Student in an Organized Health Care Education/Training Program; Surgery; Admitting Provider Surgery; Emergency Provider Internal Medicine; Visit Provider Surgery
PROC: 0DTJ4ZZ Resection of Appendix, Percutaneous Endoscopic Approach (ICD-10-PCS; CPT 44970; principal; 2024-12-06 08:50)
DX: K35.31 Acute appendicitis with localized peritonitis and gangrene, without perforation (principal); I95.9 Hypotension, unspecified; F17.210 Nicotine dependence, cigarettes, uncomplicated; Z71.6 Tobacco abuse counseling
CPT/HCPCS: 36415; 74176; 74177; 80048; 80053; 80307; 81001; 81025; 82947; 83605; 83690; 83735; 84484; 84702; 85025; 87040; 88304; 93005; 94799; 99285; J0131; J1171; J1885; J2250; J2270; J2405; J2543; J2704; J2795; J3010; J7120; Q9967

== ENCOUNTER → 2024-12-05 21:08 | Outpatient (BNV) | payer MEDICAID, SELFPAY | PROVIDERS: Admitting Provider Surgery; Emergency Provider Internal Medicine; Visit Provider Internal Medicine Cardiovascular Disease | DX: R10.9 Unspecified abdominal pain (principal) | CPT/HCPCS: 93010 ==

== ENCOUNTER → 2024-12-05 22:18 | Outpatient (BNV) | payer MEDICAID, SELFPAY | PROVIDERS: Admitting Provider Surgery; Emergency Provider Internal Medicine; Visit Provider Radiology Diagnostic Radiology | DX: K35.80 Unspecified acute appendicitis (principal) | CPT/HCPCS: 74177 ==

== ENCOUNTER 2024-12-05 23:48 | Outpatient (BNV) | payer MEDICAID, SELFPAY | END 2024-12-07 09:25 | PROVIDERS: Admitting Provider Surgery; Emergency Provider Internal Medicine; Visit Provider Radiology Diagnostic Radiology | DX: R91.8 Other nonspecific abnormal finding of lung field (principal); Z90.49 Acquired absence of other specified parts of digestive tract | CPT/HCPCS: 74176 ==

== ENCOUNTER 2024-12-05 23:48 | Outpatient (BNV) | payer MEDICAID, SELFPAY | END 2024-12-07 10:16 | PROVIDERS: Admitting Provider Surgery; Emergency Provider Internal Medicine; Visit Provider Internal Medicine Cardiovascular Disease | DX: R94.31 Abnormal electrocardiogram [ECG] [EKG] (principal); R03.1 Nonspecific low blood-pressure reading | CPT/HCPCS: 93010 ==

== ENCOUNTER → 2024-12-05 23:48 | Outpatient (BNV) | payer MEDICAID, SELFPAY | PROVIDERS: Admitting Provider Surgery; Emergency Provider Internal Medicine; Visit Provider Surgery | DX: K35.80 Unspecified acute appendicitis (principal) | CPT/HCPCS: 44970; 99024; 99222; 99499 ==